=== PATIENT | female | born 1970 | race Caucasian/White ===

== ENCOUNTER 2023-03-23 12:50 | Outpatient (CLI) | payer OTHER, SELFPAY ==
--- NOTE | 2023-03-23 13:00 | MM_ITS ---
WS: [id number] DIAGNOSTIC BILATERAL DIGITAL BREAST TOMOSYNTHESIS MAMMOGRAPHY WITH CAD RIGHT breast ultrasound, limited HISTORY: LUMP IN RT BREAST COMPARISON: None available. TECHNIQUE: Bilateral craniocaudad, mediolateral oblique, and mediolateral views are submitted with to mosynthesis and SM. Spot compression LEFT CC and MLO. Computer aided detection utilized. Breast composition: The breasts are heterogeneously dense, which may obscure small masses. Spiculated mass in a middle depth RIGHT breast near 12-1 o'clock. Mass measures 1.5 x 2.3 cm. There is a addit ional soft tissue thickening extending towards the nipple. LEFT breast is negative. RIGHT breast ultrasound, limited. Ultrasound 1:00, 2 cm from the nipple demonstrates a hypoechoic mass with angulated margins and shado wing. There is tumor extension along the proximal ducts from this mass. Mass may extend into the pect oralis muscle. Mass measures 1.6 x 2.4 x 1.9 cm. There is no definite duct extension towards the nipp le as questioned on the mammogram. No lymphadenopathy in the axilla. MM/[place] [id number] IMPRESSION: BI-RADS: 5-Highly Suggestive of Malignancy FOLLOW UP: Biopsy Recommended Ultrasound-guided biopsy recommended RIGHT breast mass at 1:00. Notified Samy Marcus MD at 03/23/2023 2:15 PM.
== END 2023-03-23 12:51 | disposition home or self-care (01) ==
LOC: RAD 12:56
PROVIDERS: PCP Family Medicine; Visit Provider Family Medicine
DX: N63.12 Unspecified lump in the right breast, upper inner quadrant (principal)
CPT/HCPCS: 76642; 77062; G0279

== ENCOUNTER 2023-06-08 10:22 | Oncology outpatient (recurring) (ONCR) | payer OTHER, SELFPAY ==
[2023-06-08 11:29] LABS: Basophils # 0.1 10^3/uL (0.0-0.1); Basophils % 1.3 %; Eosinophils # 0.3 10^3/uL (0.0-0.8); Eosinophils % 6.9 %; Hematocrit 30.3 % (36-47); Lymphocytes # 1.1 10^3/uL (0.8-4.8); Lymphocytes % 24.2 %; Mean Corpuscular HGB Conc 32.3 g/dL (30-55); Mean Corpuscular Hemoglobin 30.8 pg (27-33); Mean Corpuscular Volume 95.3 fl (85-98); Mean Platelet Volume 8.4 fL (7.4-10.4); Monocytes # 0.6 10^3/uL (0.2-0.9); Monocytes % 13.6 %; Neutrophils % 53.8 %; Nucleated Red Blood Cells % 0 %; Platelet Count 506 10^3/cmm (157-399); Red Blood Count 3.18 10^6/uL (3.85-5.65); Red Cell Distribution Width 12.5 % (12.1-15.1); White Blood Count 4.47 10^3/uL (3.29-11.43)
[2023-06-08 12:00] LABS: Albumin Level 4.4 g/dL (3.5-5.2); Alkaline Phosphatase 74 U/L (35-105); Anion Gap 14.4 (5-19); Aspartate Amino Transferase 13 U/L (0-32); Blood Urea Nitrogen 9 mg/dL (6-20); Calcium 9.4 mg/dL (8.5-10.5); Carbon Dioxide 28 mmol/L (22-29); Chloride 101 mmol/L (98-107); Estradiol 150.5 pg/mL; Follicle Stimulating Hormone 11.7 mIU/mL; Globulin 2.8 g/dL (1.3-4.6); Glomerular Filtration Rate 74.7 mL/min (90-130); Glucose 102 mg/dL (65-115); Iron 51 ug/dL (37-145); Luteinizing Hormone 9.4 mIU/mL (0.5-41.7); Osmolality Calculated 287 mOsm/kg (285-295); Percent Saturation 18.6 % (20-50); Potassium 4.4 mmol/L (3.5-5.1); Sodium 139 mmol/L (136-145); Thyroid Stimulating Hormone 2.67 uIU/mL (0.27-4.20); Total Bilirubin 0.4 mg/dL (0.15-1.2); Total Iron Binding Capacity 274 mcg/dl; Total Protein 7.2 g/dL (6.6-8.7); Unsaturated Iron Binding 223 ug/dL (112-347)
[2023-06-08 12:10] LABS: Alanine Aminotransferase 13 U/L (0-33)
== END 2023-06-10 23:59 | disposition home or self-care (01) ==
PROVIDERS: PCP Family Medicine; Visit Provider Internal Medicine Medical Oncology
DX: C50.919 Malignant neoplasm of unspecified site of unspecified female breast (principal); R53.83 Other fatigue; E28.319 Asymptomatic premature menopause
CPT/HCPCS: 36415; 80053; 82670; 83001; 83002; 83540; 83550; 84443; 85025

== ENCOUNTER 2023-06-11 06:00 | Outpatient (RCR) | payer OTHER, SELFPAY | END 2023-07-10 23:59 | disposition home or self-care (01) | LOC: SPT 06:00 | PROVIDERS: Visit Provider Physician Assistant Medical | DX: C50.011 Malignant neoplasm of nipple and areola, right female breast (principal); I89.0 Lymphedema, not elsewhere classified | CPT/HCPCS: 97140; 97161 ==

== ENCOUNTER 2023-07-11 06:00 | Outpatient (RCR) | payer OTHER, SELFPAY | END 2023-08-10 23:59 | disposition home or self-care (01) | LOC: SPT 06:00 | PROVIDERS: Visit Provider Physician Assistant Medical | DX: C50.011 Malignant neoplasm of nipple and areola, right female breast (principal); I89.0 Lymphedema, not elsewhere classified | CPT/HCPCS: 97140 ==

== ENCOUNTER → 2023-09-20 10:09 | Day surgery (SDC) | payer OTHER, SELFPAY ==
--- NOTE | 2023-09-20 09:04 | XR_ITS ---
WS: [id number] Exam: XR chest 1V portable [id number] Date/Time of Exam: 09/20/2023 9:04 AM Reason For Exam: Post PICC insertion No priors. The lungs are clear and fully expanded. Normal cardiomediastinal silhouette. A left-sided PICC line e nds in the lower one third of the SVC in good position. Surgical clips in the RIGHT axilla. There may be an implanted device in the RIGHT breast. Bony structures are intact. IMPRESSION: 1. No acute cardiopulmonary finding. 2. Left-sided PICC line ending in the lower one third of the SVC in satisfactory position.
[2023-09-20 10:20] VITALS: BP 166/93; PULSE 64; RESP 18; TEMP 36.3; O2SAT 99
--- NOTE | 2023-09-20 11:00 | PC.NURSE ---
Referred to vascular access nurse from [facility] for PICC placement for chemotherapy. Pt with history right mastectomy with lymph node removal. Risks and benefits discussed and informed consent obtained from patient. Left arm assessed with left brachial vein noted at 3.8 mm, straight, and apparent best choice for placement. Using sterile technique and MST, left brachial vein accessed x 1 stick. Mid-arm circumference measured 10 cm from left AC 24 cm. Dual lumen cath inserted with trimmed cath 42 cm and 1 cm external length noted. CXR shows tip in distal SVC, in good position for use per radiologist. Line secured with stat-lock. Insertion site covered with Biopatch and TSM. Pt to have dressing changed tomorrow at [facility].
[2023-09-20 12:54] LABS: Basophils % 0.8 %; Eosinophils # 0.1 10^3/uL (0.0-0.8); Eosinophils % 2.1 %; Hematocrit 38.7 % (36-47); Lymphocytes # 1.5 10^3/uL (0.8-4.8); Lymphocytes % 31.4 %; Mean Corpuscular HGB Conc 33.3 g/dL (30-55); Mean Corpuscular Hemoglobin 28.4 pg (27-33); Mean Corpuscular Volume 85.2 fl (85-98); Mean Platelet Volume 9.3 fL (7.4-10.4); Monocytes # 0.5 10^3/uL (0.2-0.9); Monocytes % 10.3 %; Neutrophils # 2.58 10^3/uL (1.8-7.7); Neutrophils % 54.6 %; Nucleated Red Blood Cells % 0 %; Platelet Count 371 10^3/cmm (157-399); Red Blood Count 4.54 10^6/uL (3.85-5.65); Red Cell Distribution Width 12.4 % (12.1-15.1); White Blood Count 4.74 10^3/uL (3.29-11.43)
[2023-09-20 12:57] LABS: Alanine Aminotransferase 15 U/L (0-33); Albumin Level 4.5 g/dL (3.5-5.2); Alkaline Phosphatase 71 U/L (35-105); Anion Gap 12.2 (5-19); Aspartate Amino Transferase 17 U/L (0-32); Blood Urea Nitrogen 12 mg/dL (6-20); Calcium 9.7 mg/dL (8.5-10.5); Carbon Dioxide 29 mmol/L (22-29); Chloride 101 mmol/L (98-107); Globulin 2.6 g/dL (1.3-4.6); Glomerular Filtration Rate 74.7 mL/min (90-130); Glucose 106 mg/dL (65-115); Osmolality Calculated 286 mOsm/kg (285-295); Potassium 4.2 mmol/L (3.5-5.1); Sodium 138 mmol/L (136-145); Total Bilirubin 0.5 mg/dL (0.15-1.2); Total Protein 7.1 g/dL (6.6-8.7)
== END ==
PROVIDERS: PCP Nurse Practitioner Family; Visit Provider Internal Medicine Medical Oncology
DX: Z45.2 Encounter for adjustment and management of vascular access device (principal)
CPT/HCPCS: 36573; 36592; 71045; 80053; 85025

== ENCOUNTER 2023-09-28 13:48 | Emergency (ER) | payer OTHER, SELFPAY ==
[2023-09-28 14:14] VITALS: BP 121/76; PULSE 96; RESP 21; TEMP 37.2; O2SAT 100
--- NOTE | 2023-09-28 14:24 | ED_ITS ---
HPI - Recheck/Abnormal Lab/Rx 2 General: Chief Complaint: Recheck/Abnormal Lab/Rx Stated Complaint: sent by Dr Melo/ abn labs Time Seen by Provider: 09/28/23 14:08 Source: patient Mode of arrival: ambulatory Limitations: no limitations History of Present Illness: 52-year-old female with a history of gasper ast cancer to started chemotherapy 1 week ago patient sent here by her oncologist had gotten labs showed a hemoglobin of 5.9. States she had some slight blood in her stools but no large amount states has been feeling fine has had no weakness no feeling lightheaded. She denies any pain anywhere. Review of Systems 2 Const: Denies: fever(s), chills, body aches or change in appetite Eyes: Denies: blurry vision or eye discomfort ENMT: Denies: throat pain or dental pain Card: Denies: chest pain Resp: Denies: dyspnea GI: Denies: abdominal pain, nausea, vomiting or diarrhea : Denies: dysuria Musc: Denies: neck pain or back pain Skin/Breast: Denies: rash Neuro: Denies: headache(s) PFSH ED 2 PFSH: Medical History History of migraine Breast cancer Hypertension Depression High cholesterol Surgical History History of removal of cyst Removal of 2 scalp cysts History of lumpectomy of right breast (04/27/23) History of right mastectomy (05/20/23) History of right mast/axillary dissection History of abdominal hysterectomy (2011) Family History Grandmother Cancer Diabetes Lung disease Stroke Mother CAD (coronary artery disease) Father Hyperlipidemia Hypertension Lung disease Prostate cancer Denies family history of Clotting disorder Dementia Psychiatric illness Chronic kidney disease (CKD) Suicide Family history of premature coronary artery disease Social History Smoking and tobacco/nicotine status: never used tobacco/nicotine Alcohol intake: current Alcohol intake frequency: few times a month Alcohol type: wine Physical Exam 2 Const: COMMON NORMALS: no acute distress, patient oriented x3 and healthy appearing HENMT: COMMON NORMALS: normocephalic and atraumatic HEAD & SCALP: n ormocephalic and atraumatic Eye: COMMON NORMALS: conjunctivae normal CONJUNCTIVA: Yes conjunctivae normal Neck/C-Spine: COMMON NORMALS: full ROM and supple Chest: COMMONS NORMALS: normal inspection of the chest Resp: COMMON NORMALS: normal respiratory effort, No retractions, No use of accessory muscles and clear to auscultation bilaterally AUSCULTATION: clear to auscultation bilaterally Cardio: COMMON NORMALS: regular rate, regular rhythm and No murmurs present (Cardio) RATE: regular rate RHYTHM: regular rhythm GI: COMMON NORMALS: Normal to inspection, nondistended, normoactive bowel sounds present, Soft to palpation, non-tender and no masses PALPATION: Yes Soft to palpation Extremity: COMMON NORMALS: normal to inspection and full ROM Neuro: COMMON NORMALS: patient oriented x3, moves all extremities and no focal motor deficits Psych: COMMON NORMALS: mental status grossly normal, Normal thought process present and cooperative THOUGHT PROCESS: Normal thought process present Skin: COMMON NORMALS: no rashes or lesions noted and no wounds GENERAL SKIN EXAM: no rashes or lesions noted Course 2 Vital Signs: Vital signs: Vital Signs Temperature 99.0 F 09/28/23 14:14 Pulse Rate 96 09/28/23 14:14 Respiratory Rate 21 H 09/28/23 14:14 Blood Pressure 121/76 09/28/23 14:14 Pulse Oximetry 100 09/28/23 14:14 Oxygen Delivery Me thod Room Air 09/28/23 14:14 MDM - Recheck/Abnormal Lab/Rx Medical Decision Making Patient presents here concerned of anemia she had outpatient drawl was 5.9 likely lab hemoglobin here is 12 she is well-appearing here I did speak to her oncologist she is stable for discharge. Medical Records I reviewed the patient's medical records. Lab Data I reviewed the patient's lab results. 09/28/23 14:08 Laboratory Results Hgb 12.00 g/dL (11.27-16.99) D 09/28/23 14:08 Hct 34.9 % (36-47) L D 09/28/23 14:08 Iron 38 ug/dL (37-145) 09/28/23 14:08 TIBC 240 mcg/dl 09/28/23 14:08 % Saturation 15.8 % (20-50) L 09/28/23 14:08 Unsat Iron Binding 202 ug/dL (112-347) 09/28/23 14:08 No radiology studies performed this visit Discharge Plan Discharge Patient Disposition: Home Clinical Impression: Breast cancer of upper-inner quadrant of right female breast Condition: Stable Prescriptions: No Action atorvastatin 20 mg tablet 20 mg PO DAILY bupropion HCl 150 mg tablet extended release 24 hr 150 mg PO QAM lisinopril 40 mg tablet 20 mg PO DAILY Rx Instructions: cut in half propranolol 40 mg tablet 20 mg PO QID lorazepam 1 mg tablet 0.5 - 1 mg PO Q6H PRN (Reason: Severe Nausea) Qty: 30 3RF ondansetron HCl 4 mg tablet 4 mg PO QID PRN (Reason: Nausea/vomiting) Qty: 30 3RF Compazine 10 mg tablet 10 mg PO Q4H PRN (Reason: Mild Nausea) Qty: 30 3RF lorazepam 1 mg tablet 0.5 - 1 mg buccal Q6H PRN (Reason: severe nausea) Qty: 30 3RF ondansetron 4 mg tablet,disintegrating 4 mg PO Q6H PRN (Reason: nausea and vomiting) Qty: 30 3RF cyclophosphamide 100 mg recon soln IV .3 weeks (DME) Cranial prothesis 0 .Route .MEDSUPPLY Qty: 1 0RF Rx Instructions: As directed ondansetron HCl 4 mg Tablet 4 mg PO QID PRN (Reason: Nausea/vomiting) Qty: 30 3RF olanzapine 5 mg tablet 5 mg PO QPM Qty: 30 3RF Rx Instructions: Take for 5 days post chemo. Compazine 10 mg tablet 10 mg PO Q4H PRN (Reason: Mild Nausea) Qty: 30 3RF dexamethasone 4 mg tablet 8 mg PO DIRECTED Qty: 60 3RF Rx Instructions: Take 8 mg twice daily the day before and the day after Taxotere lorazepam 1 mg tablet 0.5 - 1 mg PO Q6H PRN (Reason: Severe Nausea) Qty: 30 3RF dexamethasone 4 mg tablet 8 mg PO DIRECTED Qty: 60 3RF Rx Instructions: Take 8 mg twice daily the day before and the day after Taxotere Discharge Orders: Discharge ED (Routine); Ordered 09/28/23 Ordered By: Nelli Bruno Referrals: Ifrah,Mara, AGENCY SERVICE REPRESENTATIVE [Primary Care Provider] - Discharge Diet: Advance as tolerated Discharge Activity: Resume usual activity Coding Level of Care Code ED Front Office Coordinator for Mohan Hermosillo
[2023-09-28 14:29] LABS: Hematocrit 34.9 % (36-47)
[2023-09-28 15:00] LABS: Iron 38 ug/dL (37-145); Percent Saturation 15.8 % (20-50); Total Iron Binding Capacity 240 mcg/dl; Unsaturated Iron Binding 202 ug/dL (112-347)
[2023-09-28 15:31] VITALS: BP 121/76; PULSE 96; RESP 21; TEMP 37.2; O2SAT 100
== END 2023-09-28 15:32 | disposition home or self-care (01) ==
PROVIDERS: Emergency Provider Emergency Medicine; PCP Nurse Practitioner Family
DX: C50.211 Malignant neoplasm of upper-inner quadrant of right female breast (principal); I10 Essential (primary) hypertension
CPT/HCPCS: 83540; 83550; 85014; 85018; 86850; 86900; 99283

== ENCOUNTER 2023-10-06 13:45 | Oncology outpatient (recurring) (ONCR) | payer OTHER, SELFPAY ==
[2023-09-21 09:02] LABS: Basophils % 0.2 %; Hematocrit 38.5 % (36-47); Lymphocytes # 1.1 10^3/uL (0.8-4.8); Lymphocytes % 10.6 %; Mean Corpuscular HGB Conc 33.8 g/dL (30-55); Mean Corpuscular Hemoglobin 28.4 pg (27-33); Mean Corpuscular Volume 84.2 fl (85-98); Mean Platelet Volume 8.7 fL (7.4-10.4); Monocytes # 0.3 10^3/uL (0.2-0.9); Monocytes % 2.7 %; Neutrophils # 8.91 10^3/uL (1.8-7.7); Neutrophils % 85.5 %; Nucleated Red Blood Cells % 0 %; Platelet Count 441 10^3/cmm (157-399); Red Blood Count 4.57 10^6/uL (3.85-5.65); Red Cell Distribution Width 12.5 % (12.1-15.1); White Blood Count 10.41 10^3/uL (3.29-11.43)
[2023-09-21 09:25] LABS: Alanine Aminotransferase 16 U/L (0-33); Albumin Level 4.8 g/dL (3.5-5.2); Alkaline Phosphatase 71 U/L (35-105); Anion Gap 18.2 (5-19); Aspartate Amino Transferase 16 U/L (0-32); Blood Urea Nitrogen 13 mg/dL (6-20); Carbon Dioxide 25 mmol/L (22-29); Chloride 100 mmol/L (98-107); Globulin 2.6 g/dL (1.3-4.6); Glomerular Filtration Rate 74.7 mL/min (90-130); Glucose 171 mg/dL (65-115); Osmolality Calculated 292 mOsm/kg (285-295); Potassium 4.2 mmol/L (3.5-5.1); Sodium 139 mmol/L (136-145); Total Bilirubin 0.5 mg/dL (0.15-1.2); Total Protein 7.4 g/dL (6.6-8.7)
[2023-09-21] MEDS: sodium chloride 0.9% 250 ML 75 ML IV (11:48)
[2023-09-21] MEDS: palonosetron 0.25 mg/5 mL SDV IVP (11:50)
[2023-09-21] MEDS: famotidine 20 mg/2 mL INJ IVP (11:54)
[2023-09-21] MEDS: diphenhydrAMINE 50 mg/mL SDV 1mL 25 MG IVP (11:57)
[2023-09-21] MEDS: OLANZapine 5 mg TABLET PO (12:00)
[2023-09-21] MEDS: fosaprepitant 150 MG in sodium chloride 0.9% 150 ML 300 MG IV (12:02)
[2023-09-21 12:38] VITALS: BP 152/89; PULSE 65; RESP 16; TEMP 36.8; O2SAT 98
[2023-09-21] MEDS: pegfilgrastim 6 mg/0.6 mL Kit (onpro) SUBCUT (16:00)
[2023-09-21 16:14] VITALS: BP 149/84; PULSE 62; TEMP 36.7; O2SAT 99
--- NOTE | 2023-09-23 12:27 | ECG_ITS ---
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 Measurements Intervals [place] Rate: 60 P: 57 MT: 147 QRS: 67 QRSD: 82 T: 57 QT: 422 QTc: 422 Interpretive Statements SINUS RHYTHM WITH SINUS ARRHYTHMIA POSSIBLE RIGHT VENTRICULAR CONDUCTION DELAY [RSR (QR) IN V1/V2] No previous ECG available for comparison Electronically Signed On 09-23-2023 15:53:22 MULTIFOCAL LENS ASSEMBLER by Cherelle Navarro M.D. [id number]
[2023-09-28 10:58] VITALS: PULSE 57; RESP 16; TEMP 36; O2SAT 98
[2023-09-28 12:04] LABS: Alanine Aminotransferase 17 U/L (0-33); Albumin Level 4.1 g/dL (3.5-5.2); Alkaline Phosphatase 75 U/L (35-105); Anion Gap 14.3 (5-19); Aspartate Amino Transferase 20 U/L (0-32); Blood Urea Nitrogen 11 mg/dL (6-20); Carbon Dioxide 27 mmol/L (22-29); Chloride 96 mmol/L (98-107); Globulin 2.8 g/dL (1.3-4.6); Glomerular Filtration Rate 65.2 mL/min (90-130); Glucose 109 mg/dL (65-115); Osmolality Calculated 276 mOsm/kg (285-295); Potassium 4.3 mmol/L (3.5-5.1); Sodium 133 mmol/L (136-145); Total Bilirubin 0.3 mg/dL (0.15-1.2); Total Protein 6.9 g/dL (6.6-8.7)
[2023-10-06 13:38] VITALS: PULSE 85; RESP 16; TEMP 36.5; O2SAT 99
[2023-10-06 14:12] LABS: Basophils # 0.2 10^3/uL (0.0-0.1); Basophils % 1.1 %; Eosinophils % 0.1 %; Hematocrit 32.1 % (36-47); Lymphocytes # 1.9 10^3/uL (0.8-4.8); Mean Corpuscular HGB Conc 33.3 g/dL (30-55); Mean Corpuscular Hemoglobin 28.1 pg (27-33); Mean Corpuscular Volume 84.3 fl (85-98); Monocytes # 1.2 10^3/uL (0.2-0.9); Monocytes % 6.5 %; Neutrophils # 13.44 10^3/uL (1.8-7.7); Neutrophils % 76.5 %; Nucleated Red Blood Cells % 0 %; Platelet Count 381 10^3/cmm (157-399); Red Blood Count 3.81 10^6/uL (3.85-5.65); Red Cell Distribution Width 12.4 % (12.1-15.1); White Blood Count 17.58 10^3/uL (3.29-11.43)
[2023-10-06 14:35] LABS: Alanine Aminotransferase 41 U/L (0-33); Alkaline Phosphatase 108 U/L (35-105); Aspartate Amino Transferase 25 U/L (0-32); Blood Urea Nitrogen 7 mg/dL (6-20); Calcium 9.4 mg/dL (8.5-10.5); Carbon Dioxide 24 mmol/L (22-29); Chloride 99 mmol/L (98-107); Glomerular Filtration Rate 74.7 mL/min (90-130); Glucose 115 mg/dL (65-115); Osmolality Calculated 283 mOsm/kg (285-295); Sodium 137 mmol/L (136-145); Total Bilirubin 0.3 mg/dL (0.15-1.2)
[2023-10-06 14:38] LABS: Anion Gap 18.3 (5-19); Potassium 4.3 mmol/L (3.5-5.1)
== END 2023-10-10 23:59 | disposition home or self-care (01) ==
PROVIDERS: Nurse Practitioner Family; PCP Nurse Practitioner Family; Visit Provider Internal Medicine Medical Oncology
DX: C50.211 Malignant neoplasm of upper-inner quadrant of right female breast (principal); Z17.0 Estrogen receptor positive status [ER+]; Z79.899 Other long term (current) drug therapy
CPT/HCPCS: 80053; 83540; 83550; 85014; 85018; 85025; 86850; 86900; 93005; 96367; 96375; 96377; 96413; 96417; 99283; J1100; J1200; J1453; J1642; J2469; J2506; J3490; J7040; J7050; J9070; J9171

== ENCOUNTER 2023-10-17 17:40 | Inpatient (IN) | payer OTHER, SELFPAY ==
--- NOTE | 2023-10-17 17:49 | ECG_ITS ---
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 Measurements Intervals [place] Rate: 115 P: 59 [place]: 129 QRS: 81 QRSD: 76 T: 52 QT: 311 QTc: 431 Interpretive Statements SINUS TACHYCARDIA POSSIBLE RIGHT VENTRICULAR CONDUCTION DELAY [RSR (QR) IN V1/V2] Compared to ECG 09/23/2023 12:27:04 Sinus rhythm no longer present Sinus arrhythmia no longer present Electronically Signed On 10-18-2023 10:51:44 OIL LEASE OPERATOR by Nelson Myles M.D. [email or web address] [id number]
[2023-10-17 17:50] VITALS: BP 124/87; PULSE 116; RESP 16; TEMP 37.1; O2SAT 99; BMI 20.5
--- NOTE | 2023-10-17 18:10 | XRR_ITS ---
PROCEDURE INFORMATION: Exam: XR Chest Exam date and time: 10/17/2023 6:21 PM Age: 52 years old Clinical indication: Prior surgery; Surgery date: 6+ months; Surgery type: Tissue ticket sorter post mastectomy; Patient HX: C/O palpitations. History of breast cancer. TECHNIQUE: Imaging protocol: Radiologic exam of the chest. Views: 1 view. COMPARISON: CR XR chest 1V portable [id number] 09/20/2023 12:32 PM FINDINGS: Lungs: No focal consolidation or evidence of airspace disease. Pleural spaces: No evidence of pneumothorax or pleural effusion Heart/Mediastinum: Left sided central venous catheter with tip in the region of the mid SVC. Cardiomediastinal silhouette is within normal limits. Bones/joints: No evidence of acute osseous abnormality. Clips in the right axilla. XR/XR chest 1V portable [id number] IMPRESSION: 1. No acute cardiopulmonary abnormality. 2. Left sided central venous catheter with tip in the region of the mid SVC.
[2023-10-17] MEDS: sodium chloride 0.9% 1,000 ML 999 ML IV ×2 (18:40→21:27)
[2023-10-17] MEDS: metoprolol tartrate 1 mg/1 mL SDV 5 mL 2.5 MG IVP (18:44)
[2023-10-17 18:46] LABS: Hematocrit 27.2 % (36-47); Lymphocytes # 0.4 10^3/uL (0.8-4.8); Lymphocytes % 42.4 %; Mean Corpuscular HGB Conc 33.8 g/dL (30-55); Mean Corpuscular Hemoglobin 28.8 pg (27-33); Mean Platelet Volume 9.2 fL (7.4-10.4); Monocytes # 0.1 10^3/uL (0.2-0.9); Monocytes % 12.1 %; Neutrophils % 38.5 %; Nucleated Red Blood Cells % 0 %; Platelet Count 193 10^3/cmm (157-399); Red Cell Distribution Width 12.9 % (12.1-15.1); White Blood Count 0.99 10^3/uL (3.29-11.43)
[2023-10-17 18:58] LABS: Slide Review Slide Review Perform
[2023-10-17 18:59] LABS: Neutrophils # 0.38 10^3/uL (1.8-7.7)
[2023-10-17 19:01] LABS: Chloride 100 mmol/L (98-107); Potassium 3.8 mmol/L (3.5-5.1); Sodium 136 mmol/L (136-145)
[2023-10-17 19:03] LABS: Troponin(5th) Baseline < 6 ng/L (0-10)
[2023-10-17 19:11] LABS: NT Pro B Type Natriuretic Pept 43 pg/mL (0-125); Thyroid Stimulating Hormone 2.29 uIU/mL (0.27-4.20)
[2023-10-17 19:24] VITALS: BP 110/88; PULSE 101; O2SAT 96
[2023-10-17 19:45] LABS: Alanine Aminotransferase 13 U/L (0-33); Albumin Level 3.8 g/dL (3.5-5.2); Alkaline Phosphatase 77 U/L (35-105); Anion Gap 17.8 (5-19); Aspartate Amino Transferase 13 U/L (0-32); Blood Urea Nitrogen 12 mg/dL (6-20); Calcium 8.8 mg/dL (8.5-10.5); Carbon Dioxide 22 mmol/L (22-29); Globulin 2.9 g/dL (1.3-4.6); Glomerular Filtration Rate 104.2 mL/min (90-130); Glucose 102 mg/dL (65-115); Total Bilirubin 0.6 mg/dL (0.15-1.2); Total Protein 6.7 g/dL (6.6-8.7)
--- NOTE | 2023-10-17 19:46 | ED_ITS ---
HPI - Arrhythmia/Palpitations 2 General: Chief Complaint: Arrhythmia/Palpitations Stated Complaint: Heart fluttering Time Seen by Provider: 10/17/23 18:05 History of Present Illness: 52-year-old female with a history of gasper ast cancer. She is on active chemotherapy. Last dose was Wednesday. She believes she got Neulasta on Wednesday evening, but there may or may not have been a slight malfunction with her infusion at that point. She also got diagnosed on Wednesday with influenza, and has been on Tamiflu. She does not feel feverish anymore. She presents here because she is having palpitations. Her heart rate, which is usually in the 60s, as well over 100, and she is skipping beats she says. When she does it seems to make her cough. Associated symptoms: Reports nausea; Deny vomiting Review of Systems 2 Const: Reports: body aches; Denies: fever(s) or chills Eyes: Denies: change in vision ENMT: Denies: throat pain Card: Reports: palpitations and irregular heart rhythm; Denies: chest pain Resp: Reports: non-productive cough; Denies: dyspnea GI: Reports: nausea; Denies: vomiting Neuro: Denies: headache(s) PFSH ED 2 PFSH: Medical History History of migraine Breast cancer Hypertension Depression High cholesterol Surgical History History of removal of cyst Removal of 2 scalp cysts History of lumpectomy of right breast (04/27/23) History of right mastectomy (05/20/23) History of right mast/axillary dissection History of abdominal hysterectomy (2011) Family History Grandmother Cancer Diabetes Lung disease Stroke Mother CAD (coronary artery disease) Father Hyperlipidemia Hypertension Lung disease Prostate cancer Denies family history of Clotting disorder Dementia Psychiatric illness Chronic kidney disease (CKD) Suicide Family history of premature coronary artery disease Social History Smoking and tobacco/nicotine status: never used tobacco/nicotine Alcohol intake: current Alcohol intake frequency: few times a month Alcohol type: wine Physical Exam 2 Const: GENERAL APPEARANCE: cooperative; not frail appearing HENMT: COMMON NORMALS: normocephalic, atraumatic and Normal external nose present HEAD & SCALP: normocephalic and atraumatic FACE & SINUS: normal facial exam and face symmetric NOSE: Normal external nose present Eye: COMMON NORMALS: Equal, round and reactive pupils present and EOMs intact bilaterally PUPIL: Yes Equal, round and reactive pupils present Neck/C-Spine: GENERAL: Yes trachea midline Chest: CHEST: Yes Symmetrical chest wall rise Resp: COMMON NORMALS: normal respiratory effort, No retractions, No use of accessory muscles and clear to auscultation bilaterally AUSCULTATION: clear to auscultation bilaterally Cardio: COMMON NORMALS: regular rhythm RATE: tachycardic RHYTHM: regular rhythm GI: COMMON NORMALS: Normal to inspection, nondistended, normoactive bowel sounds present and Soft to palpation PALPATION: Yes Soft to palpation Extremity: COMMON NORMALS: no pedal edema Neuro: LISET COMA SCALE: document GCS findings [place] coma scale eye opening: Spontaneous Liset coma scale verbal response: Orientated Liset coma scale motor response: Obey commands Liset coma scale total score: 15 S ENSORY EXAM: Yes extremities (intact) Psych: COMMON NORMALS: speech normal SPEECH: Yes normal speech Skin: COMMON NORMALS: no rashes or lesions noted GENERAL SKIN EXAM: no rashes or lesions noted Course 2 Vital Signs: Vital signs: Vital Signs Temperature 98.8 F 10/17/23 17:50 Pulse Rate 97 10/17/23 20:35 Respiratory Rate 16 10/17/23 17:50 Blood Pressure 135/106 10/17/23 20:35 Pulse Oximetry 100 10/17/23 20:35 Oxygen Delivery Me thod Room Air 10/17/23 20:35 MDM - Arrhythmia/Palpitations Medical Decision Making Tachycardic chemotherapy patient. Heart rate was in the 120s on arrival. After fluid infusion, and IV metoprolol, heart rate is below 100. Blood pressure has remained stable. Her white blood cell count is 0.99 with an absolute neutrophil count of 380. Hemoglobin is 9.2. Chest x-ray is negative. Urinalysis is negative. Electrolytes are normal. Concerning for tachycardia with neutropenia, that she could have an early sepsis picture. Fluid bolus was stopped early, as she began to cough significantly after getting around 1.5 L. She will be admitted to isolation, given IV antibiotics after blood cultures, etc. Lab Data 10/17/23 18:37 10/17/23 18:37 Radiology Impressions Chest X-Ray 10/17/23 18:10 IMPRESSION: 1. No acute cardiopulmonary abnormality. 2. Left sided central venous catheter with tip in the region of the mid SVC. Laboratory Results WBC 0.99 10^3/uL (3.29-11.43) L* 10/17/23 18:37 RBC 3.20 10^6/uL (3.85-5.65) L 10/17/23 18:37 Hgb 9.20 g/dL (11.27-16.99) L 10/17/23 18:37 Hct 27.2 % (36-47) L 10/17/23 18:37 MCV 85.0 fl (85-98) 10/17/23 18:37 MCH 28.8 pg (27-33) 10/17/23 18:37 MCHC 33.8 g/dL (30-55) 10/17/23 18:37 RDW 12.9 % (12.1-15.1) 10/17/23 18:37 Plt Count 193 10^3/cmm (157-399) 10/17/23 18:37 MPV 9.2 fL (7.4-10.4) 10/17/23 18:37 Neut % (Auto) 38.5 % 10/17/23 18:37 Lymph % (Auto) 42.4 % 10/17/23 18:37 Morris % (Auto) 12.1 % 10/17/23 18:37 Eos % (Auto) 2.0 % 10/17/23 18:37 Baso % (Auto) 4.0 % 10/17/23 18:37 Neut # (Auto) 0.38 10^3/uL (1.8-7.7) L* 10/17/23 18:37 Lymph # (Auto) 0.4 10^3/uL (0.8-4.8) L 10/17/23 18:37 Morris # (Auto) 0.1 10^3/uL (0.2-0.9) L 10/17/23 18:37 Eos # (Auto) 0.0 10^3/uL (0.0-0.8) 10/17/23 18:37 Baso # (Auto) 0.0 10^3/uL (0.0-0.1) 10/17/23 18:37 Nucleated RBC % (auto) 0 % 10/17/23 18:37 Nucleated RBCs # 0.0 /100WBC 10/17/23 18:37 Sodium 136 mmol/L (136-145) 10/17/23 18:37 Potassium 3.8 mmol/L (3.5-5.1) 10/17/23 18:37 Chloride 100 mmol/L (98-107) 10/17/23 18:37 Carbon Dioxide 22 mmol/L (22-29) 10/17/23 18:37 Anion Gap 17.8 (5-19) 10/17/23 18:37 BUN 12 mg/dL (6-20) 10/17/23 18:37 Creatinine 0.6 mg/dL (0.5-0.9) 10/17/23 18:37 GFR Calculation 104.2 mL/min (90-130) 10/17/23 18:37 Glucose 102 mg/dL (65-115) 10/17/23 18:37 Calculated Osmolality 280 mOsm/kg (285-295) L 10/17/23 18:37 Calcium 8.8 mg/dL (8.5-10.5) 10/17/23 18:37 Total Bilirubin 0.6 mg/dL (0.15-1.2) 10/17/23 18:37 AST 13 U/L (0-32) 10/17/23 18:37 ALT 13 U/L (0-33) 10/17/23 18:37 Alkaline Phosphatase 77 U/L (35-105) 10/17/23 18:37 Troponin T Baseline < 6 ng/L (0-10) 10/17/23 18:37 Troponin T 120 Minute 6.00 ng/L (0-10) 10/17/23 20:23 Delta Troponin T 0.69114 ABS# (0-10) 10/17/23 20:23 NT-Pro-B Natriuret Pep 43 pg/mL (0-125) 10/17/23 18:37 Total Protein 6.7 g/dL (6.6-8.7) 10/17/23 18:37 Albumin 3.8 g/dL (3.5-5.2) 10/17/23 18:37 Globulin 2.9 g/dL (1.3-4.6) 10/17/23 18:37 TSH 2.29 uIU/mL (0.27-4.20) 10/17/23 18:37 Urine Color Yellow (Yellow) 10/17/23 19:52 Urine Appearance Clear (CLEAR) 10/17/23 19:52 Urine pH 5 (5-7) 10/17/23 19:52 Ur Specific [place] 1.005 (1.005-1.030) 10/17/23 19:52 Urine Protein Neg (Negative) 10/17/23 19:52 Urine Glucose (UA) Norm (Normal) 10/17/23 19:52 Urine Ketones Negative (Negative) 10/17/23 19:52 Urine Blood Neg (Negative) 10/17/23 19:52 Urine Nitrate Negative (Negative) 10/17/23 19:52 Urine Bilirubin Neg (Negative) 10/17/23 19:52 Urine Urobilinogen Norm mg/dL (Negative) 10/17/23 19:52 Ur Leukocyte Esterase Negative (Negative) 10/17/23 19:52 All radiology interpretation(s) finalized by discharge Discharge Plan Discharge Patient Disposition: Admitted As Inpatient Admit Provider: Humaira García Clinical Impression: Neutropenia, Tachycardia Condition: Fair Coding Level of Care Code ED Migration Specialist for Mohan Hermosillo
[2023-10-17 19:48] LABS: Osmolality Calculated 280 mOsm/kg (285-295)
[2023-10-17 20:09] LABS: Add Urine Microscopic? NO; Charge for UA Resulting for Rev
--- NOTE | 2023-10-17 20:12 | ECG_ITS ---
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 Measurements Intervals [place] Rate: 94 P: 49 MA: 156 QRS: 72 QRSD: 81 T: 43 QT: 360 QTc: 451 Interpretive Statements SINUS RHYTHM POSSIBLE RIGHT VENTRICULAR CONDUCTION DELAY [RSR (QR) IN V1/V2] Compared to ECG 10/17/2023 17:49:05 Sinus tachycardia no longer present Electronically Signed On 10-18-2023 10:53:42 MANAGER MONITORING by Nelson Myles M.D. [email or web address] [email or web address] va [id number]
[2023-10-17 20:18] LABS: Bilirubin Urine Neg (Negative); Blood Urine Neg (Negative); Glucose Urine UA Norm (Normal); Ketones Urine Negative (Negative); Leukocyte Esterase Urine Negative (Negative); Nitrate Urine Negative (Negative); Protein Urine Neg (Negative); Specific Gravity, Urine 1.005 (1.005-1.030); Urine Appearance Clear (CLEAR); Urine Color Yellow (Yellow); Urobilinogen Urine Norm (Negative); pH Urine 5 (5-7)
[2023-10-17 20:35] VITALS: BP 135/106; PULSE 97; O2SAT 100
[2023-10-17 20:47] LABS: Troponin 5 2HR Delta 0.00001 ABS# (0-10)
[2023-10-17 21:05] VITALS: BP 127/60; PULSE 102; RESP 16; TEMP 36.6; O2SAT 99
--- NOTE | 2023-10-17 21:15 | P.HP_ITS ---
Providers/Chief Complaint 2 Admitting Physician: Humaira García MD Primary Care Provider: SELMA Mckeon Chief Complaint: Heart fluttering History of Present Illness Alexa Cerda is a 52 year old female hx of breast cancer currently on chemo last chemotherapy session hours on Wednesday, she states positive with influenza on Wednesday, presented today with chief complaint of worsening of cough and palpitations. Patient stating that her palpitations started around 10 AM which stayed until she was evaluated in the ER, her palpitations improved with use of IV fluids she was in sinus rhythm sinus tachycardia heart rate improved from 116 to 70s Tylenol 3 and Robitussin for her dry cough Patient stating that she spiked fever 102 on Wednesday, No fever since Wednesday, Patient is stating that she noticed fever 102 on Wednesday and since then she has not noticed any fever, she has received Neulasta with her chemotherapy on Wednesday She was given Neulasta on Wednesday last week, Review of Systems 2 Const: Reports: fever(s) and chills Eyes: Denies: change in vision ENMT: Denies: throat pain Card: Reports: palpitations; Denies: chest pain Resp: Reports: dyspnea GI: Denies: abdominal pain : Denies: flank pain Musc: Denies: neck pain Medications/Allergies Home Medications Medication Instructions Recorded Confirmed Last Taken Type atorvastatin 20 mg tablet 20 mg PO DAILY 06/08/23 10/17/23 09/28/23 History bupropion HCl 150 mg 24 hr tablet, 150 mg PO QAM 06/08/23 10/17/23 09/28/23 History extended release ondansetron 4 mg disintegrating 4 mg PO Q6H PRN nausea and 09/20/23 10/17/23 09/19/23 Rx tablet vomiting #30 tabs prochlorperazine maleate 10 mg 10 mg PO Q4H PRN Mild Nausea #30 09/20/23 10/17/23 09/19/23 Rx tablet (Compazine) tabs Cranial prothesis #1 device 09/21/23 10/17/23 Unknown Rx lorazepam 1 mg tablet 0.5 - 1 mg (0.5 - 1 x 1 mg) PO Q6H 09/21/23 10/17/23 Unknown Rx PRN Severe Nausea #30 tabs olanzapine 5 mg tablet 5 mg PO QPM Breakthrough Nausea 09/21/23 10/17/23 Unknown Rx and Vomitting #30 tabs propranolol 10 mg tablet 40 mg PO BID 09/28/23 10/17/23 09/28/23 History hydrocortisone acetate 25 mg 25 mg OK BID PRN rectal discomfort 10/06/23 10/17/23 Unknown Rx rectal suppository #12 ea acyclovir 400 mg tablet 400 mg PO .COMPLEX #70 tabs 10/12/23 10/17/23 Unknown Rx benzonatate 200 mg capsule 200 mg PO TID PRN cough #60 caps 10/14/23 10/17/23 Unknown Rx fluticasone propionate 220 2 puff inhalation BID #1 g 10/14/23 10/17/23 Unknown Rx mcg/actuation HFA aerosol inhaler (Flovent HFA) famotidine 20 mg tablet (Pepcid) 20 mg PO BEDTIME 10/17/23 10/17/23 Unknown History loratadine 10 mg tablet (Claritin) 10 mg PO DAILY 10/17/23 10/17/23 Unknown History Allergies Allergy/AdvReac Type Severity Reaction Status Date / Time metronidazole Allergy ADR-Gastrointestinal Verified 10/17/23 17:50 Upset PFSH Acute 2 PFSH: Medical History History of migraine Breast cancer Hypertension Depression High cholesterol Surgical History History of removal of cyst Removal of 2 scalp cysts History of lumpectomy of right breast (04/27/23) History of right mastectomy (05/20/23) History of right mast/axillary dissection History of abdominal hysterectomy (2011) Family History Grandmother Cancer Diabetes Lung disease Stroke Mother CAD (coronary artery disease) Father Hyperlipidemia Hypertension Lung disease Prostate cancer Denies family history of Clotting disorder Dementia Psychiatric illness Chronic kidney disease (CKD) Suicide Family history of premature coronary artery disease Social History Smoking and tobacco/nicotine status: never used tobacco/nicotine Alcohol intake: current Alcohol intake frequency: few times a month Alcohol type: wine Vitals/I&O/Wt Last Vital Signs Temp 98.8 F 10/17/23 17:50 Pulse 97 10/17/23 20:35 Resp 16 10/17/23 17:50 BP 135/106 10/17/23 20:35 Pulse Ox 100 10/17/23 20:35 O2 Del Method Room Air 10/17/23 20:35 Weight last 48 hrs Weight 55.792 kg Physical Exam 2 Narrative: Patient is awake alert Dehydrated S1, S2 Sinus rhythm Bilateral breast without adventitious rhonchi or crackles Currently on room air Pleasant cooperative Experiencing dry cough No signs of edema Septic exam No encephalopathy No skin mottling small ulcerations in the nasal cavity Data 10/17/23 18:37 10/17/23 18:37 A&P Assessment and plan (1) Tachycardia: (2) Neutropenia: (3) Influenza: Plan Palpitations influenza + Sepsis Breast cancer, active chemo, immunocompromised small ulcerations in the nasal cavity SIRS criteria met with tachypnea, leukopenia Patient has received 2 L of IV fluids septic bolus Rule out PE will request CTA chest She has received IV antibiotics, she is afebrile She is neutropenic received Neulasta as well on Wednesday last week I will treat her with cefepime and vancomycin Continue acyclovir Patient is immunocompromise Neutropenic precautions Continue Tamiflu For dry cough I will give her Tylenol 3 and dextromethorphan, Robitussin DVT prophylaxis added Full code Cardiac diet Self interpretation of EKG: Sinus rhythm X-ray without remarkable infiltration Review of records: Patient received second cycle of cyclophosphamide andcycle 2 of cyclophosphamide/docetaxel. Attestations 2 Medical Necessity Statement*: More than 2 midnights anticipated Diagnoses Tachycardia R00.0 Neutropenia D70.9 Influenza J11.1
[2023-10-17] MEDS: piperacillin-tazobactam 4.5 GM in sodium chloride 0.9% (plus) 50 ML IV (21:30)
[2023-10-17 21:39] LABS: D Dimer 1.14 ug/mLFEU (0-0.59)
[2023-10-17 21:42] VITALS: BMI 20.5
[2023-10-17 21:45] LABS: Magnesium 1.9 mg/dL (1.7-2.3)
[2023-10-17 21:50] LABS: Procalcitonin 0.28 ng/mL (0-0.5)
[2023-10-17 21:54] VITALS: BP 135/106; PULSE 97; RESP 16; TEMP 37.1; O2SAT 100
[2023-10-17 22:03] LABS: Lactate (Lactic Acid level) 0.9 mmol/L (0.5-2.2)
[2023-10-17] MEDS: vancomycin 1,000 MG in sodium chloride 0.9% 250 ML 250 MG IV (22:19)
[2023-10-17] MEDS: heparin 5,000 unit/mL INJ 1 mL 5000 UNIT SUBCUT (22:19)
[2023-10-17 22:57] VITALS: PULSE 97
[2023-10-17] MEDS: sodium chloride 0.9% 1,000 ML 30 ML IV (23:30)
[2023-10-17] MEDS: acetaminophen-codeine 300-30mg Tablet 1 TAB PO (23:31)
[2023-10-17 23:33] LABS: Vitamin B12 > 2000 pg/mL (232-1245)
[2023-10-18] VITALS (16 sets, daily range): BP systolic 99–138; BP diastolic 63–83; PULSE 73–102; RESP 14–18; TEMP 36.7–37.4; O2SAT 95–99
--- NOTE | 2023-10-18 00:10 | ECG_ITS ---
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 Measurements Intervals [place] Rate: 99 P: 48 MS: 149 QRS: 66 QRSD: 77 T: 30 QT: 342 QTc: 440 Interpretive Statements SINUS RHYTHM POSSIBLE RIGHT VENTRICULAR CONDUCTION DELAY [RSR (QR) IN V1/V2] NONSPECIFIC T-WAVE ABNORMALITY INTERPRETATION BASED ON A DEFAULT AGE OF 40 YEARS Compared to ECG 10/17/2023 20:12:20 T-wave abnormality now present Electronically Signed On 10-18-2023 10:53:31 PATROL SERGEANT by Nelson Myles M.D. [id number]
[2023-10-18 01:28] LABS: Troponin 5 6HR Delta 0.00001 ng/L (0-12)
[2023-10-18] MEDS: vancomycin 750 MG in sodium chloride 0.9% 250 ML 250 MG IV ×2 (06:09→18:38)
[2023-10-18] MEDS: guaiFENesin-dextromethorphan UDC 10 mL 5 ML PO (06:14)
--- OUTSIDE RECORDS SUMMARY | 2023-10-18 06:18 | XMS_ITS | Continuity of Care Document ---
Author Name Unknown Organization [facility] Address [address] [place] [address]- Care Team Providers Care [employer] Specialist Name Role Phone Ifrah Mara HAHN Primary Care Physician [phone] Encounter [facility] Number [id number] Date(s): 04/27/23 - 04/27/23 [facility] [address] [place] [address]- [phone] Encounter Diagnosis Acquired breast deformity(Discharge Diagnosis) - 04/27/23 Discharge Disposition: .Discharge to Home (Routine) Attending Physician: Mathew Vidal MD Admitting Physician: Mathew Vidal MD Allergies, Adverse Reactions, Alerts Substance Reaction Severity Status metroNIDAZOLE Vomiting Severe Active Assessment and Plan Extracted from: Title:Instructions to Patients Author:Damari Jauregui RN Date:04/27/23 Gastroenterology How to Prevent Constipation After Surgery Constipation is a common problem after surgery. Many things can make constipation more likely after a surgery, including: ? ? Certain medicines, especially numbing medicines (anesthetics) and very strong pain medicines called opioids. ? ? Feeling stressed because of the surgery. ? ? Eating different foods than normal. ? ? Being less active. Symptoms of constipation include: ? ? Having fewer than three bowel movements a week. ? ? Straining to have a bowel movement. ? ? Having hard, dry, or eocofs-uqur-wwombo stools (feces). ? ? Discomfort in the lower abdomen, such as cramps or bloating. ? ? Not feeling relief after having a bowel movement. ? ? Nausea and vomiting. You can take steps to help prevent constipation after surgery. Follow these instructions at home: Eating and drinking ? ? Eat foods that have a lot of fiber in them, such as beans, bran, whole grains, and fresh fruits and vegetables. ? ? Limit foods that are high in fat and processed sugars, such as fried or sweet foods. These include macanese fries, hamburgers, cookies, and candy. ? ? Take a fiber supplement as told by your health care provider. If you are not taking a fiber supplement and you think you are not getting enough fiber from foods, talk to your health care provider about adding a fiber supplement to your diet. ? ? Drink enough fluid to keep your urine pale yellow. ? ? Drink clear fluids, especially water. Avoid drinking alcohol, caffeine, and soda. These can make constipation worse. Activity ? ? After surgery, return to your normal activities slowly, or when your health care provider says it is okay. ? ? Start walking as soon as you can. Try to go a little farther each day. ? ? Once your health care provider approves, do some sort of regular exercise. This helps prevent constipation. Bowel movements ? ? Go to the restroom when you have the urge to go. Do not hold it in. ? ? Try drinking something hot to get a bowel movement started. ? ? Keep track of how often you use the restroom. Medicines ? ? Take dcfw-gky-jjxpebp and prescription medicines only as told by your health care provider. ? ? Talk to your health care provider about medicines that may help prevent constipation, particularly if you have a history of constipation. Your health care provider may suggest a stool softener, laxative, or fiber supplement. ? ? Do not take any medicines without talking to your health care provider first. Contact a health care provider if: ? ? You used stool softeners or laxatives and still have not had a bowel movement within 24? 48 hours after using them. ? ? You have not had a bowel movement in 3 days. ? ? You have a fever. Get help right away if you have: ? ? Constipation that lasts for more than 4 days or if your symptoms get worse. ? ? Bright red blood in your stool. ? ? Pain in the abdomen or rectum. ? ? Very bad cramping. ? ? Thin, pencil-like stools. ? ? Unexplained weight loss. Summary ? ? Constipation is a common problem after surgery. Many things can make constipation more likely after a surgery, including certain medicines, eating different foods than normal, and being less active. ? ? Symptoms of constipation include having fewer than three bowel movements a week, straining to have a bowel movement, and cramps or bloating in the lower abdomen. ? ? To help prevent constipation, you should eat foods that are high in fiber, drink plenty of fluids, and get regular physical activity. ? ? Your health care provider may suggest medicines, such as stool softeners or laxatives, to help prevent constipation. This information is not intended to replace advice given to you by your health care provider. Make sure you discuss any questions you have with your health care provider. Document Revised: 08/14/2020 Document Reviewed: 08/14/2020 [employer] Patient Education ?? 2021 [employer] Obstetrics and Gynecology Breast Reduction, Care After This sheet gives you information about how to care for yourself after your procedure. Your health care provider may also give you more specific instructions. If you have problems or questions, contact your health care provider. What can I expect after the procedure? After the procedure, it is common to have: ? ? Pain, bruising, and swelling in your breasts. You will be given medicine to help relieve pain. ? ? Crusting under the breast. This may be caused by fluid leakage or skin loss. A small amount of skin loss is fairly normal and can be managed with an antibiotic ointment. Follow these instructions at home: Medicines ? ? Take ktvb-djg-sabhdck and prescription medicines only as told by your health care provider. ? ? If you were prescribed an antibiotic medicine or ointment, take it or apply it as told by your health care provider. Do not stop using the antibiotic even if you start to feel better. ? ? Ask your health care provider if the medicine prescribed to you: ? ? Requires you to avoid driving or using heavy machinery. ? ? Can cause constipation. You may need to take these actions to prevent or treat constipation: ? ? Drink enough fluid to keep your urine pale yellow. ? ? Take jiax-jid-zpamyup or prescription medicines. ? ? Eat foods that are high in fiber, such as beans, whole grains, and fresh fruits and vegetables. ? ? Limit foods that are high in fat and processed sugars, such as fried or sweet foods. Incision care ? ? Follow instructions from your health care provider about how to take care of your incisions. Make sure you: ? ? Wash your hands with soap and water before and after you change your bandage (dressing). If soap and water are not available, use hand concert manager. ? ? Change your dressing as told by your health care provider. ? ? Leave stitches (sutures), skin glue, or adhesive strips in place. These skin closures may need to stay in place for 2 weeks or longer. If adhesive strip edges start to loosen and curl up, you may trim the loose edges. Do not remove adhesive strips completely unless your health care provider tells you to do that. ? ? Check your incision areas every day for signs of infection. Check for: ? ? More redness, swelling, or pain. ? ? More fluid or blood. ? ? Warmth. ? ? Pus or a bad smell. Activity ? ? Rest as told by your health care provider. ? ? Avoid sitting for a long time without moving. Get up to take short walks every 1? 2 hours. This is important to improve blood flow and breathing. Ask for help if you feel weak or unsteady. ? ? Do not drive until your health care provider approves. ? ? Do not raise your arms above the level of your breasts for 10 days. ? ? Return to your normal activities as told by your health care provider. Ask your health care provider what activities are safe for you. ? ? Do not do physical activity that requires a lot of movement or energy for 1 month after surgery, or as long as told by your health care provider. ? ? For 3 weeks, or as long as told by your health care provider: ? ? Do not lift anything that is heavier than 5 lb (2.3 kg) with one arm. ? ? Do not lift anything that is heavier than 10 lb (4.5 kg) with both arms. Lifestyle ? ? Do not take baths, swim, or use a hot tub until your health care provider approves. Ask your health care provider if you may take showers. You may only be allowed to take sponge baths. ? ? Do not use any products that contain nicotine or tobacco, such as cigarettes, e-cigarettes, and chewing tobacco. These can delay incision healing after surgery. If you need help quitting, ask your health care provider. ? ? Avoid being in the sun for long periods of time. General instructions ? ? Wear compression stockings as told by your health care provider. These stockings help to prevent blood clots and reduce swelling in your legs. ? ? If you have tubes draining fluid from your surgical area, care for them as told by your health care provider. ? ? Follow instructions from your health care provider about eating or drinking restrictions. ? ? Wear a soft bra 24 hours a day for 1 month, or as long as directed. You may remove your bra while bathing. Do not wear underwire bras. ? ? Do not sleep on your belly for 4? 6 weeks. ? ? Keep all follow-up visits as told by your health care provider. This is important. Contact a health care provider if you have: ? ? Any of these signs of infection: ? ? More redness, swelling, or pain around your incision area or in your breast. ? ? More fluid or blood coming from your incision area. ? ? Your incision or your breast feeling warm to the touch. ? ? Pus or a bad smell coming from your incision area. ? ? Nausea or vomiting that lasts for more than 2 days. ? ? Pain that does not get better with medicine. ? ? A cough. ? ? Difficulty moving your arm or pain when moving your arm. ? ? Areas of blood or fluid collecting in your breast. Get help right away if you have: ? ? Chest pain that is new or feels different from your pain after surgery. ? ? Trouble breathing or shortness of breath. ? ? Swelling in your legs or arms. ? ? You have redness, warmth, or pain in your leg or arm. ? ? A fever. ? ? Bleeding from your incision or discharge coming from your nipple that will not go away. ? ? Swelling that is worse in one breast than in the other. Summary ? ? After the procedure, it is common to have pain, bruising, and swelling in your breast. You will be given medicine to help relieve pain. ? ? Follow instructions from your health care provider about what activities you can do and any restrictions you may have after the procedure. ? ? Follow instructions from your health care provider about how to take care of your incisions. ? ? Check your incision areas every day for signs of infection. ? ? Contact your health care provider if you notice any signs of infection. This information is not intended to replace advice given to you by your health care provider. Make sure you discuss any questions you have with your health care provider. Document Revised: 03/29/2020 Document Reviewed: 03/29/2020 [employer] Patient Education ?? 2021 [employer] Lumpectomy, Care After This sheet gives you information about how to care for yourself after your procedure. Your health care provider may also give you more specific instructions. If you have problems or questions, contact your health care provider. What can I expect after the procedure? After the procedure, it is common to have: ? ? Breast swelling. ? ? Breast tenderness. ? ? Stiffness in your arm or shoulder. ? ? A change in the shape and feel of your breast. ? ? Scar tissue that feels hard to the touch in the area where the lump was removed. Follow these instructions at home: Medicines ? ? Take bwmu-snf-gpcyhwx and prescription medicines only as told by your health care provider. ? ? If you were prescribed an antibiotic medicine, take it as told by your health care provider. Do not stop taking the antibiotic even if you start to feel better. ? ? Ask your health care provider if the medicine prescribed to you: ? ? Requires you to avoid driving or using heavy machinery. ? ? Can cause constipation. You may need to take these actions to prevent or treat constipation: ? ? Drink enough fluid to keep your urine pale yellow. ? ? Take baij-nsg-eopkipr or prescription medicines. ? ? Eat foods that are high in fiber, such as beans, whole grains, and fresh fruits and vegetables. ? ? Limit foods that are high in fat and processed sugars, such as fried or sweet foods. Incision care ? ? Follow instructions from your health care provider about how to take care of your incision. Make sure you: ? ? Wash your hands with soap and water before and after you change your bandage (dressing). If soap and water are not available, use hand concert manager. ? ? Change your dressing as told by your health care provider. ? ? Leave stitches (sutures), skin glue, or adhesive strips in place. These skin closures may need to stay in place for 2 weeks or longer. If adhesive strip edges start to loosen and curl up, you may trim the loose edges. Do not remove adhesive strips completely unless your health care provider tells you to do that. ? ? Check your incision area every day for signs of infection. Check for: ? ? More redness, swelling, or pain. ? ? Fluid or blood. ? ? Warmth. ? ? Pus or a bad smell. ? ? Keep your dressing clean and dry. ? ? If you were sent home with a surgical drain in place, follow instructions from your health care provider about emptying it. Bathing ? ? Do not take baths, swim, or use a hot tub until your health care provider approves. ? ? Ask your health care provider if you may take showers. You may only be allowed to take sponge baths. Activity ? ? Rest as told by your health care provider. ? ? Avoid sitting for a long time without moving. Get up to take short walks every 1? 2 hours. This is important to improve blood flow and breathing. Ask for help if you feel weak or unsteady. ? ? Return to your normal activities as told by your health care provider. Ask your health care provider what activities are safe for you. ? ? Be careful to avoid any activities that could cause an injury to your arm on the side of your surgery. ? ? Do not lift anything that is heavier than 10 lb (4.5 kg), or the limit that you are told, until your health care provider says that it is safe. Avoid lifting with the arm that is on the side of your surgery. ? ? Do not carry heavy objects on your shoulder on the side of your surgery. ? ? Do exercises to keep your shoulder and arm from getting stiff and swollen. Talk with your health care provider about which exercises are safe for you. General instructions ? ? Wear a supportive bra as told by your health care provider. ? ? Raise (elevate) your arm above the level of your heart while you are sitting or lying down. ? ? Do not wear tight jewelry on your arm, wrist, or fingers on the side of your surgery. ? ? Keep all follow-up visits as told by your health care provider. This is important. ? ? You may need to be screened for extra fluid around the lymph nodes and swelling in the breast and arm (lymphedema). Follow instructions from your health care provider about how often you should be checked. ? ? If you had any lymph nodes removed during your procedure, be sure to tell all of your health care providers. This is important information to share before you are involved in certain procedures, such as having blood tests or having your blood pressure taken. Contact a health care provider if: ? ? You develop a rash. ? ? You have a fever. ? ? Your pain medicine is not working. ? ? You have swelling, weakness, or numbness in your arm that does not improve after a few weeks. ? ? You have new swelling in your breast. ? ? You have any of these signs of infection: ? ? More redness, swelling, or pain in your incision area. ? ? Fluid or blood coming from your incision. ? ? Warmth coming from the incision area. ? ? Pus or a bad smell coming from your incision. Get help right away if you have: ? ? Very bad pain in your breast or arm. ? ? Swelling in your legs or arms. ? ? Redness, warmth, or pain in your leg or arm. ? ? Chest pain. ? ? Difficulty breathing. Summary ? ? After the procedure, it is common to have breast tenderness, swelling in your breast, and stiffness in your arm and shoulder. ? ? Follow instructions from your health care provider about how to take care of your incision. ? ? Do not lift anything that is heavier than 10 lb (4.5 kg), or the limit that you are told, until your health care provider says that it is safe. Avoid lifting with the arm that is on the side of your surgery. ? ? If you had any lymph nodes removed during your procedure, be sure to tell all of your health care providers. This is important information to share before you are involved in certain procedures, such as having blood tests or having your blood pressure taken. This information is not intended to replace advice given to you by your health care provider. Make sure you discuss any questions you have with your health care provider. Document Revised: 04/01/2020 Document Reviewed: 04/01/2020 [employer] Patient Education ?? 2021 [employer]. Oncology [place] Lymph Node Biopsy, Care After The following information offers guidance on how to care for yourself after your procedure. Your health care provider may also give you more specific instructions. If you have problems or questions, contact your health care provider. What can I expect after the procedure? After the procedure, it is common to have: ? ? Blue urine or stool for the next 24? 48 hours. This is normal. It is caused by the dye used during the procedure. ? ? Blue skin at the injection site. This may last for up to 8 weeks. ? ? Numbness, tingling, or pain near your incision site. ? ? Swelling or bruising near your incision. Follow these instructions at home: Incision care ? ? Follow instructions from your health care provider about how to take care of your incision. Make sure you: ? ? Wash your hands with soap and water for at least 20 seconds before and after you change your bandage (dressing). If soap and water are not available, use hand concert manager. ? ? Change your dressing as told by your health care provider. ? ? Leave stitches (sutures), skin glue, or adhesive strips in place. These skin closures may need to stay in place for 2 weeks or longer. If adhesive strip edges start to loosen and curl up, you may trim the loose edges. Do not remove adhesive strips completely unless your health care provider tells you to do that. ? ? Check your incision area every day for signs of infection. Check for: ? ? Redness, swelling, or more pain. ? ? Fluid or blood. ? ? Warmth. ? ? Pus or a bad smell. ? ? Do not take baths, swim, or use a hot tub until your health care provider approves. Ask your health care provider if you can take showers. You may be able to shower 24 hours after your procedure. After a shower, pat the incision area dry with a clean towel. Do not rub the incision. That could cause bleeding. Activity ? ? Avoid activities that take a lot of effort. ? ? If you were given a sedative during the procedure, it can affect you for several hours. Do not drive or operate machinery until your health care provider says that it is safe. ? ? Return to your normal activities as told by your health care provider. Ask your health care provider what activities are safe for you. General instructions ? ? Take pvje-vup-xedtlrl and prescription medicines only as told by your health care provider. ? ? You may resume your regular diet. ? ? If the procedure was done on or near the lymph nodes under your arm (axillary lymph nodes), do not have your blood pressure taken or have blood drawn from the arm on the side of the biopsy until your health care provider says it is okay. ? ? You may need to be screened for extra fluid around the lymph nodes (lymphedema). Follow instructions from your health care provider about how often you should be checked. ? ? Keep all follow-up visits. This is important. Contact a health care provider if: ? ? Your pain medicine is not helping. ? ? You have nausea and vomiting. ? ? You have redness, swelling, or more pain around your biopsy site. ? ? You have fluid, blood, pus, or a bad smell coming from your incision. ? ? Your incision feels warm to the touch, you have a fever, or chills. ? ? You have any new bruising. Get help right away if: ? ? You have pain that is getting worse, and your medicine is not helping. ? ? You have vomiting that will not stop. ? ? You have chest pain or trouble breathing. These symptoms may represent a serious problem that is an emergency. Do not wait to see if the symptoms will go away. Get medical help right away. Call your local emergency services (911 in the [place] Do not drive yourself to the hospital. Summary ? ? After the procedure, it is common to have blue urine or stool for the next 24? 48 hours. ? ? Take qomr-rix-qubwkqk and prescription medicines only as told by your health care provider. ? ? Follow instructions from your health care provider about how to take care of your incision. Check your incision area every day for signs of infection. ? ? Get help right away if you have chest pain or trouble breathing. This information is not intended to replace advice given to you by your health care provider. Make sure you discuss any questions you have with your health care provider. Document Revised: 07/10/2021 Document Reviewed: 07/10/2021 [employer] Patient Education ?? 2021 [employer]. Pharmacology General Anesthesia, Adult, Care After This sheet gives you information about how to care for yourself after your procedure. Your health care provider may also give you more specific instructions. If you have problems or questions, contact your health care provider. What can I expect after the procedure? After the procedure, the following side effects are common: ? ? Pain or discomfort at the IV site. ? ? Nausea. ? ? Vomiting. ? ? Sore throat. ? ? Trouble concentrating. ? ? Feeling cold or chills. ? ? Feeling weak or tired. ? ? Sleepiness and fatigue. ? ? Soreness and body aches. These side effects can affect parts of the body that were not involved in surgery. Follow these instructions at home: For the time period you were told by your health care provider: ? ? Rest. ? ? Do not participate in activities where you could fall or become injured. ? ? Do not drive or use machinery. ? ? Do not drink alcohol. ? ? Do not take sleeping pills or medicines that cause drowsiness. ? ? Do not make important decisions or sign legal documents. ? ? Do not take care of children on your own. Eating and drinking ? ? Follow any instructions from your health care provider about eating or drinking restrictions. ? ? When you feel hungry, start by eating small amounts of foods that are soft and easy to digest (bland), such as toast. Gradually return to your regular diet. ? ? Drink enough fluid to keep your urine pale yellow. ? ? If you vomit, rehydrate by drinking water, juice, or clear broth. General instructions ? ? If you have sleep apnea, surgery and certain medicines can increase your risk for breathing problems. Follow instructions from your health care provider about wearing your sleep device: ? ? Anytime you are sleeping, including during daytime naps. ? ? While taking prescription pain medicines, sleeping medicines, or medicines that make you drowsy. ? ? Have a responsible adult stay with you for the time you are told. It is important to have someone help care for you until you are awake and alert. ? ? Return to your normal activities as told by your health care provider. Ask your health care provider what activities are safe for you. ? ? Take sxmf-flq-agrzaqm and prescription medicines only as told by your health care provider. ? ? If you smoke, do not smoke without supervision. ? ? Keep all follow-up visits as told by your health care provider. This is important. Contact a health care provider if: ? ? You have nausea or vomiting that does not get better with medicine. ? ? You cannot eat or drink without vomiting. ? ? You have pain that does not get better with medicine. ? ? You are unable to pass urine. ? ? You develop a skin rash. ? ? You have a fever. ? ? You have redness around your IV site that gets worse. Get help right away if: ? ? You have difficulty breathing. ? ? You have chest pain. ? ? You have blood in your urine or stool, or you vomit blood. Summary ? ? After the procedure, it is common to have a sore throat or nausea. It is also common to feel tired. ? ? Have a responsible adult stay with you for the time you are told. It is important to have someone help care for you until you are awake and alert. ? ? When you feel hungry, start by eating small amounts of foods that are soft and easy to digest (bland), such as toast. Gradually return to your regular diet. ? ? Drink enough fluid to keep your urine pale yellow. ? ? Return to your normal activities as told by your health care provider. Ask your health care provider what activities are safe for you. This information is not intended to replace advice given to you by your health care provider. Make sure you discuss any questions you have with your health care provider. Document Revised: 06/12/2021 Document Reviewed: 01/09/2021 [employer] Patient Education ?? 2021 [employer] Future Appointments Appointment Date:05/03/2023 02:15:00 PM Scheduled Provider:Hossein Harrison MD Location:[facility] Appointment Type:Hospital Follow Up (Established) Appointment Date:05/10/2023 01:45:00 PM Scheduled Provider:Mathew Vidal MD Location: Breast Surg Appointment Type:Established Patient Medications acetaminophen-hydrocodone 325 mg-10 mg oral tablet 1 tab, By mouth, Q6H, PRN Pain, 20 tab, 0, 0, Substitution Permitted, [facility], 65, Height (inches) (Clinical), 04/27/23 11:53:00 CDT, in, 54.6, Weight (kg) (Clinical), 04/27/23 11:53:00 CDT, kg Start Date: 04/27/23 Status: Ordered Aspir 81 81 mg, By mouth, Daily, Refill(s) 0 Start Date: 04/09/23 Status: Ordered atorvastatin 20 mg, By mouth, QPM (every evening), # 30 tab, Refill(s) 0 Start Date: 04/09/23 Status: Ordered buPROPion 150 mg/24 hours oral extended release tablet 150 mg = 1 tab, By mouth, Q24H, # 30 tab, Refill(s) 0 Start Date: 04/07/23 Status: Ordered Bystolic 2.5 mg, By mouth, Daily, # 30 tab, Refill(s) 0 Start Date: 04/07/23 Status: Ordered Fish Oil By mouth, Daily, Refill(s) 0 Start Date: 04/09/23 Status: Ordered lisinopril 40 mg oral tablet 40 mg = 1 tab, By mouth, Daily, # 30 tab, Refill(s) 0 Start Date: 04/07/23 Status: Ordered propranolol 40 mg oral tablet 40 mg = 1 tab, By mouth, BID, # 60 tab, Refill(s) 0 Start Date: 04/07/23 Status: Ordered Problem List Condition Confirmation Course Effective Dates Status Health St atus Informant 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 Active Procedures Procedure Date Related Diagnosis Body Site Status BREAST REDUCTION 04/27/23 Complete d BREAST REDUCTION 04/27/23 Complete d BX/EXC LYMPH NODE OPEN DEEP AXILLARY NODE 04/27/23 Completed MASTECTOMY PARTIAL 04/27/23 Comple shiv Dental surgery 2021 Completed Hysterectomy 2011 Completed Results Laboratory List Name Date BMP 04/27/23 Most recent to oldest [Reference Range]: 1 Anion Gap [2-15 mEq/L] 7 mEq/L (04/27/23 11:50 AM) eGFR CKD-EPI [>=61 mL/min/1.73 m2] 84 mL /min/1.73 m2 (04/27/23 11:50 AM) Glucose, Serum/Plasma [70-100 mg/dL] 107 mg/dL *HI* (04/27/23 11:50 AM) Sodium [136-145 mEq/L] 139 mEq/L (04/27/23 11:50 AM) Potassium [3.5-5.1 mEq/L] 3.7 mEq/L (04/27/23 11:50 AM) Chloride [98-107 mEq/L] 104 mEq/L (04/27/23 11:50 AM) CO2 [21-32 mEq/L] 28 mEq/L (04/27/23 11:50 AM) BUN [7-18 mg/dL] 7 mg/dL (04/27/23 11:50 AM) Creatinine [0.55-1.02 mg/dL] 0.83 mg/dL (04/27/23 11:50 AM) Calcium [8.3-10.6 mg/dL] 9.2 mg/dL (04/27/23 11:50 AM) Radiology Reports * Exam Date Time Procedure Performing Provider Status 04/27/23 11:56 AM 04/27/23 11:53 AM [facility] Mammo Post Procedure Uni MA Proc US Breast Localization Right Auth (Verified) Auth (Verified) Notes: ([facility] Mammo Post Procedure Uni) Reason For Exam: needle loc;Breast cancer, right (MA Proc US Breast Localization Right) Reason For Exam: needle loc;Breast cancer, right REPORT [facility] Mammo Post Procedure Uni PROCEDURE: Ultrasound-guided right breast wire localization x2, followed by unilateral digital mammogram of the right breast. HISTORY: 52-year-old female. 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 Patient had additional suspicious mass identified in the more anterior upper inner right breast on staging MRI, corresponding with a 1.0 cm suspicious hypoechoic mass identified in the right breast 1:00 2 cm from nipple on ultrasound. Ultrasound- guided biopsy of the mass in the 1:00-2 cm position was not performed upon request of the patient's breast surgeon. Rather, surgeon requested ultrasound- guided localization of the additional mass in the 1:00-2 cmposition. Because this mass has not yet been previously biopsied, and due to lack of definitive mammographic correlate, the decision was made to place a biopsy marking clip in the additional mass in the 1:00-2 cm position prior to ultrasound-guided localization to ensure accuracy of excision on pending surgical specimen radiograph. This was discussed with Dr. Vidal, and he is agreeable to this p hannah. MEDICATIONS: 6 cc buffered lidocaine SC; 10 cc buffered lidocaine with epinephrine SC. CONSENT: Obtained after the explanation of risks, benefits, and alternatives and placed in the chart. Timeout was performed. PROCEDURE DETAILS: The patient was placed in the supine position. Ultrasound was used to localize the mass in the 1:00-2 cm position. The breast was prepped and draped in a sterile manner. The skin was anesthetized with lidocaine. The skin and deep tissues were anesthetized with buffered lidocaine.Under ultrasound guidance a biopsy marking clip was advanced from medial approach to the level of the targeted mass; the biopsy marking clip was deployed within the mass. Ultrasound guidance was thenused to place a 5 cm 20G needle with the tip just beyond the lesion. A localization wire was placedthrough the needle, passing through the lesion, with the hooked tip just beyond. The needle was removed. The patient was then placed in the supine position. Ultrasound was used to localize the previously biopsied mass/site of biopsy-proven malignancy at the 1:00-6 cm position in the right breast. The previously placed biopsy marking clip was noted to have migrated anterior to the previously biopsied mass. The overlying skin was anesthetized with lidocaine. The skin and deep tissues were anesthetizedwith buffered lidocaine. Ultrasound guidance was used to place a second 5 cm 20G needle with the tip just beyond the lesion. A second localization wire was placed through the needle, passing through the lesion, with the hooked tip just beyond. The needle was removed, and the areas were both cleansed and bandaged, securing the localization wires. The patient tolerated the procedure well and there were no complications. Postprocedure 2 view digital mammogram demonstrates accurate placement of the localization wires. The biopsy marking clip placed at time of ultrasound-guided biopsy on 03/31/2023 is present anterior to the previously biopsied mass in the 1:00-6 cm position, along the anterior margin of the associated architectural distortion. Annotated postprocedure images will be available to the patient's surgeon in the operating room. IMPRESSION: Successful right breast wire localization x2. Electronically signed by: Dr Yoav Bolaños 04/27/2023 2:14 PM Radiologist Yoav Bolaños MD Signed 04/27/23 14:14:57 (Electronic Signature) [employer] RLO Technologist Amy Lacy Vital Signs Most recent to oldest [Reference Range]: 1 2 3 Blood Pressure 159/78mmHg (04/27/23 9:52 PM) 155/71mmHg (04/27/23 9:36 PM) 137/72mmHg (04/27/23 9:22 PM) Height (inches) (Clinical) 65 in (04/27/23 11:53 AM) 65 in (04/27/23 11:53 AM) Weight (kg) (Clinical) 54.6 kg (04/27/23 11:53 AM) 54.6 kg (04/27/23 11:53 AM) BMI (Clinical) 20 kg/m2 (04/27/23 11:53 AM) Scale Type Bed (04/27/23 11:53 AM) Bed (04/27/23 11:53 AM) Social History Social History Type Response Smoking Status Never smoker; Smokel ess tobacco use: Never; Has the patient smoked in the last 365 days, even once? No entered on: 04/09/23 Sex Female Implantable Device List Procedure Provider Procedure Date Device Type Site Unknown Unknown 04/27/23 Unknown Breast, Right Device Identifier Serial Number Lot or Batch Number Manufacturing Date Expiration Date Distinct Identification Code MRI Safety Implantable Status Assigning Authority Unknown Unknown [id number] Unknown 04/06/25 Unknown Unknown Active Unknown Procedure Provider Procedure Date Device Type Site BCC Biopsy Unknown 03/31/23 Unknown Unknown Device Identifier Serial Number Lot or Batch Number Manufacturing Date Expiration Date Distinct Identification Code MRI Safety Implantable Status Assigning Authority [id number] Unknown [id number] Unknown 03/09/25 Unknown MR [employer] Active GS1 Hospital Discharge Instructions Patient Education 04/27/2023 21:01:00 How to Prevent Constipation After Surgery How to Prevent Constipation After Surgery Constipation is a common problem after surgery. Many things can make constipation more likely aftera surgery, including: ??? Certain medicines, especially numbing medicines (anesthetics) and very strong pain medicines called opioids. ??? Feeling stressed because of the surgery. ??? Eating different foods than normal. ??? Being less active. Symptoms of constipation include: ??? Having fewer than three bowel movements a week. ??? Straining to have a bowel movement. ??? Having hard, dry, or muyjlm-xabx-nsnuqi stools (feces). ??? Discomfort in the lower abdomen, such as cramps or bloating. ??? Not feeling relief after having a bowel movement. ??? Nausea and vomiting. You can take steps to help prevent constipation after surgery. Follow these instructions at home: Eating and drinking ??? Eat foods that have a lot of fiber in them, such as beans, bran, whole grains, and fresh fruitsand vegetables. ??? Limit foods that are high in fat and processed sugars, such as fried or sweet foods. These include macanese fries, hamburgers, cookies, and candy. ??? Take a fiber supplement as told by your health care provider. If you are not taking a fiber supplement and you think you are not getting enough fiber from foods, talk to your health care providerabout adding a fiber supplement to your diet. ??? Drink enough fluid to keep your urine pale yellow. ??? Drink clear fluids, especially water. Avoid drinking alcohol, caffeine, and soda. These can make constipation worse. Activity ??? After surgery, return to your normal activities slowly, or when your health care provider says it is okay. ??? Start walking as soon as you can. Try to go a little farther each day. ??? Once your health care provider approves, do some sort of regular exercise. This helps prevent constipation. Bowel movements ??? Go to the restroom when you have the urge to go. Do not hold it in. ??? Try drinking something hot to get a bowel movement started. ??? Keep track of how often you use the restroom. Medicines ??? Take ggqn-vvf-rrsteue and prescription medicines only as told by your health care provider. ??? Talk to your health care provider about medicines that may help prevent constipation, particularly if you have a history of constipation. Your health care provider may suggest a stool softener, laxative, or fiber supplement. ??? Do not take any medicines without talking to your health care provider first. Contact a health care provider if: ??? You used stool softeners or laxatives and still have not had a bowel movement within 24???48 hours after using them. ??? You have not had a bowel movement in 3 days. ??? You have a fever. Get help right away if you have: ??? Constipation that lasts for more than 4 days or if your symptoms get worse. ??? Bright red blood in your stool. ??? Pain in the abdomen or rectum. ??? Very bad cramping. ??? Thin, pencil-like stools. ??? Unexplained weight loss. Summary ??? Constipation is a common problem after surgery. Many things can make constipation more likely after a surgery, including certain medicines, eating different foods than normal, and being less active. ??? Symptoms of constipation include having fewer than three bowel movements a week, straining to have a bowel movement, and cramps or bloating in the lower abdomen. ??? To help prevent constipation, you should eat foods that are high in fiber, drink plenty of fluids, and get regular physical activity. ??? Your health care provider may suggest medicines, such as stool softeners or laxatives, to help prevent constipation. This information is not intended to replace advice given to you by your health care provider. Make sure you discuss any questions you have with your health care provider. Document Revised: 08/14/2020 Document Reviewed: 08/14/2020 [email or web address] Patient Education ?? 2021 [email or web address] 04/27/2023 21:01:00 General Anesthesia, Adult, Care After General Anesthesia, Adult, Care After This sheet gives you information about how to care for yourself after your procedure. Your health care provider may also give you more specific instructions. If you have problems or questions, contact your health care provider. What can I expect after the procedure? After the procedure, the following side effects are common: ??? Pain or discomfort at the IV site. ??? Nausea. ??? Vomiting. ??? Sore throat. ??? Trouble concentrating. ??? Feeling cold or chills. ??? Feeling weak or tired. ??? Sleepiness and fatigue. ??? Soreness and body aches. These side effects can affect parts of the body that were not involvedin surgery. Follow these instructions at home: For the time period you were told by your health care provider: ??? Rest. ??? Do not participate in activities where you could fall or become injured. ??? Do not drive or use machinery. ??? Do not drink alcohol. ??? Do not take sleeping pills or medicines that cause drowsiness. ??? Do not make important decisions or sign legal documents. ??? Do not take care of children on your own. Eating and drinking ??? Follow any instructions from your health care provider about eating or drinking restrictions. ??? When you feel hungry, start by eating small amounts of foods that are soft and easy to digest (bland), such as toast. Gradually return to your regular diet. ??? Drink enough fluid to keep your urine pale yellow. ??? If you vomit, rehydrate by drinking water, juice, or clear broth. General instructions ??? If you have sleep apnea, surgery and certain medicines can increase your risk for breathing problems. Follow instructions from your health care provider about wearing your sleep device: ??? Anytime you are sleeping, including during daytime naps. ??? While taking prescription pain medicines, sleeping medicines, or medicines that make you drowsy. ??? Have a responsible adult stay with you for the time you are told. It is important to have someone help care for you until you are awake and alert. ??? Return to your normal activities as told by your health care provider. Ask your health care provider what activities are safe for you. ??? Take potn-vwu-ujdkqqa and prescription medicines only as told by your health care provider. ??? If you smoke, do not smoke without supervision. ??? Keep all follow-up visits as told by your health care provider. This is important. Contact a health care provider if: ??? You have nausea or vomiting that does not get better with medicine. ??? You cannot eat or drink without vomiting. ??? You have pain that does not get better with medicine. ??? You are unable to pass urine. ??? You develop a skin rash. ??? You have a fever. ??? You have redness around your IV site that gets worse. Get help right away if: ??? You have difficulty breathing. ??? You have chest pain. ??? You have blood in your urine or stool, or you vomit blood. Summary ??? After the procedure, it is common to have a sore throat or nausea. It is also common to feel tired. ??? Have a responsible adult stay with you for the time you are told. It is important to have someone help care for you until you are awake and alert. ??? When you feel hungry, start by eating small amounts of foods that are soft and easy to digest (bland), such as toast. Gradually return to your regular diet. ??? Drink enough fluid to keep your urine pale yellow. ??? Return to your normal activities as told by your health care provider. Ask your health care provider what activities are safe for you. This information is not intended to replace advice given to you by your health care provider. Make sure you discuss any questions you have with your health care provider. Document Revised: 06/12/2021 Document Reviewed: 01/09/2021 [employer] Patient Education ?? 2021 [email or web address] 04/27/2023 21:01:00 Breast Reduction, Care After Breast Reduction, Care After This sheet gives you information about how to care for yourself after your procedure. Your health care provider may also give you more specific instructions. If you have problems or questions, contact your health care provider. What can I expect after the procedure? After the procedure, it is common to have: ??? Pain, bruising, and swelling in your breasts. You will be given medicine to help relieve pain. ??? Crusting under the breast. This may be caused by fluid leakage or skin loss. A small amount of skin loss is fairly normal and can be managed with an antibiotic ointment. Follow these instructions at home: Medicines ??? Take utds-rqr-wjjmtcx and prescription medicines only as told by your health care provider. ??? If you were prescribed an antibiotic medicine or ointment, take it or apply it as told by your health care provider. Do not stop using the antibiotic even if you start to feel better. ??? Ask your health care provider if the medicine prescribed to you: ??? Requires you to avoid driving or using heavy machinery. ??? Can cause constipation. You may need to take these actions to prevent or treat constipation: ??? Drink enough fluid to keep your urine pale yellow. ??? Take jpgq-euw-mssspzb or prescription medicines. ??? Eat foods that are high in fiber, such as beans, whole grains, and fresh fruits and vegetables. ??? Limit foods that are high in fat and processed sugars, such as fried or sweet foods. Incision care ??? Follow instructions from your health care provider about how to take care of your incisions. Make sure you: ??? Wash your hands with soap and water before and after you change your bandage (dressing). If soap and water are not available, use hand concert manager. ??? Change your dressing as told by your health care provider. ??? Leave stitches (sutures), skin glue, or adhesive strips in place. These skin closures may need to stay in place for 2 weeks or longer. If adhesive strip edges start to loosen and curl up, you maytrim the loose edges. Do not remove adhesive strips completely unless your health care provider tells you to do that. ??? Check your incision areas every day for signs of infection. Check for: ??? More redness, swelling, or pain. ??? More fluid or blood. ??? Warmth. ??? Pus or a bad smell. Activity ??? Rest as told by your health care provider. ??? Avoid sitting for a long time without moving. Get up to take short walks every 1???2 hours. This is important to improve blood flow and breathing. Ask for help if you feel weak or unsteady. ??? Do not drive until your health care provider approves. ??? Do not raise your arms above the level of your breasts for 10 days. ??? Return to your normal activities as told by your health care provider. Ask your health care provider what activities are safe for you. ??? Do not do physical activity that requires a lot of movement or energy for 1 month after surgery, or as long as told by your health care provider. ??? For 3 weeks, or as long as told by your health care provider: ??? Do not lift anything that is heavier than 5 lb (2.3 kg) with one arm. ??? Do not lift anything that is heavier than 10 lb (4.5 kg) with both arms. Lifestyle ??? Do not take baths, swim, or use a hot tub until your health care provider approves. Ask your health care provider if you may take showers. You may only be allowed to take sponge baths. ??? Do not use any products that contain nicotine or tobacco, such as cigarettes, e-cigarettes, andchewing tobacco. These can delay incision healing after surgery. If you need help quitting, ask your health care provider. ??? Avoid being in the sun for long periods of time. General instructions ??? Wear compression stockings as told by your health care provider. These stockings help to prevent blood clots and reduce swelling in your legs. ??? If you have tubes draining fluid from your surgical area, care for them as told by your health care provider. ??? Follow instructions from your health care provider about eating or drinking restrictions. ??? Wear a soft bra 24 hours a day for 1 month, or as long as directed. You may remove your bra while bathing. Do not wear underwire bras. ??? Do not sleep on your belly for 4???6 weeks. ??? Keep all follow-up visits as told by your health care provider. This is important. Contact a health care provider if you have: ??? Any of these signs of infection: ??? More redness, swelling, or pain around your incision area or in your breast. ??? More fluid or blood coming from your incision area. ??? Your incision or your breast feeling warm to the touch. ??? Pus or a bad smell coming from your incision area. ??? Nausea or vomiting that lasts for more than 2 days. ??? Pain that does not get better with medicine. ??? A cough. ??? Difficulty moving your arm or pain when moving your arm. ??? Areas of blood or fluid collecting in your breast. Get help right away if you have: ??? Chest pain that is new or feels different from your pain after surgery. ??? Trouble breathing or shortness of breath. ??? Swelling in your legs or arms. ??? You have redness, warmth, or pain in your leg or arm. ??? A fever. ??? Bleeding from your incision or discharge coming from your nipple that will not go away. ??? Swelling that is worse in one breast than in the other. Summary ??? After the procedure, it is common to have pain, bruising, and swelling in your breast. You willbe given medicine to help relieve pain. ??? Follow instructions from your health care provider about what activities you can do and any restrictions you may have after the procedure. ??? Follow instructions from your health care provider about how to take care of your incisions. ??? Check your incision areas every day for signs of infection. ??? Contact your health care provider if you notice any signs of infection. This information is not intended to replace advice given to you by your health care provider. Make sure you discuss any questions you have with your health care provider. Document Revised: 03/29/2020 Document Reviewed: 03/29/2020 [employer] Patient Education ?? 2021 [employer] 04/27/2023 21:01:00 [place] Lymph Node Biopsy, Care After [place] Lymph Node Biopsy, Care After The following information offers guidance on how to care for yourself after your procedure. Your health care provider may also give you more specific instructions. If you have problems or questions, contact your health care provider. What can I expect after the procedure? After the procedure, it is common to have: ??? Blue urine or stool for the next 24???48 hours. This is normal. It is caused by the dye used during the procedure. ??? Blue skin at the injection site. This may last for up to 8 weeks. ??? Numbness, tingling, or pain near your incision site. ??? Swelling or bruising near your incision. Follow these instructions at home: Incision care ??? Follow instructions from your health care provider about how to take care of your incision. Make sure you: ??? Wash your hands with soap and water for at least 20 seconds before and after you change your bandage (dressing). If soap and water are not available, use hand concert manager. ??? Change your dressing as told by your health care provider. ??? Leave stitches (sutures), skin glue, or adhesive strips in place. These skin closures may need to stay in place for 2 weeks or longer. If adhesive strip edges start to loosen and curl up, you maytrim the loose edges. Do not remove adhesive strips completely unless your health care provider tells you to do that. ??? Check your incision area every day for signs of infection. Check for: ??? Redness, swelling, or more pain. ??? Fluid or blood. ??? Warmth. ??? Pus or a bad smell. ??? Do not take baths, swim, or use a hot tub until your health care provider approves. Ask your health care provider if you can take showers. You may be able to shower 24 hours after your procedure.After a shower, pat the incision area dry with a clean towel. Do not rub the incision. That could cause bleeding. Activity ??? Avoid activities that take a lot of effort. ??? If you were given a sedative during the procedure, it can affect you for several hours. Do not drive or operate machinery until your health care provider says that it is safe. ??? Return to your normal activities as told by your health care provider. Ask your health care provider what activities are safe for you. General instructions ??? Take vyce-nqt-cbwrmig and prescription medicines only as told by your health care provider. ??? You may resume your regular diet. ??? If the procedure was done on or near the lymph nodes under your arm (axillary lymph nodes), do not have your blood pressure taken or have blood drawn from the arm on the side of the biopsy until your health care provider says it is okay. ??? You may need to be screened for extra fluid around the lymph nodes (lymphedema). Follow instructions from your health care provider about how often you should be checked. ??? Keep all follow-up visits. This is important. Contact a health care provider if: ??? Your pain medicine is not helping. ??? You have nausea and vomiting. ??? You have redness, swelling, or more pain around your biopsy site. ??? You have fluid, blood, pus, or a bad smell coming from your incision. ??? Your incision feels warm to the touch, you have a fever, or chills. ??? You have any new bruising. Get help right away if: ??? You have pain that is getting worse, and your medicine is not helping. ??? You have vomiting that will not stop. ??? You have chest pain or trouble breathing. These symptoms may represent a serious problem that is an emergency. Do not wait to see if the symptoms will go away. Get medical help right away. Call your local emergency services (911 in the [place] Do not drive yourself to the hospital. Summary ??? After the procedure, it is common to have blue urine or stool for the next 24???48 hours. ??? Take eauz-rjl-nespfos and prescription medicines only as told by your health care provider. ??? Follow instructions from your health care provider about how to take care of your incision. Check your incision area every day for signs of infection. ??? Get help right away if you have chest pain or trouble breathing. This information is not intended to replace advice given to you by your health care provider. Make sure you discuss any questions you have with your health care provider. Document Revised: 07/10/2021 Document Reviewed: 07/10/2021 tagga Patient Education ?? 2021 [email or web address]. 04/27/2023 21:01:00 Lumpectomy, Care After Lumpectomy, Care After This sheet gives you information about how to care for yourself after your procedure. Your health care provider may also give you more specific instructions. If you have problems or questions, contact your health care provider. What can I expect after the procedure? After the procedure, it is common to have: ??? Breast swelling. ??? Breast tenderness. ??? Stiffness in your arm or shoulder. ??? A change in the shape and feel of your breast. ??? Scar tissue that feels hard to the touch in the area where the lump was removed. Follow these instructions at home: Medicines ??? Take wxxw-wik-khmeeyr and prescription medicines only as told by your health care provider. ??? If you were prescribed an antibiotic medicine, take it as told by your health care provider. Donot stop taking the antibiotic even if you start to feel better. ??? Ask your health care provider if the medicine prescribed to you: ??? Requires you to avoid driving or using heavy machinery. ??? Can cause constipation. You may need to take these actions to prevent or treat constipation: ??? Drink enough fluid to keep your urine pale yellow. ??? Take ahaw-qgs-fqrvjmy or prescription medicines. ??? Eat foods that are high in fiber, such as beans, whole grains, and fresh fruits and vegetables. ??? Limit foods that are high in fat and processed sugars, such as fried or sweet foods. Incision care ??? Follow instructions from your health care provider about how to take care of your incision. Make sure you: ??? Wash your hands with soap and water before and after you change your bandage (dressing). If soap and water are not available, use hand concert manager. ??? Change your dressing as told by your health care provider. ??? Leave stitches (sutures), skin glue, or adhesive strips in place. These skin closures may need to stay in place for 2 weeks or longer. If adhesive strip edges start to loosen and curl up, you maytrim the loose edges. Do not remove adhesive strips completely unless your health care provider tells you to do that. ??? Check your incision area every day for signs of infection. Check for: ??? More redness, swelling, or pain. ??? Fluid or blood. ??? Warmth. ??? Pus or a bad smell. ??? Keep your dressing clean and dry. ??? If you were sent home with a surgical drain in place, follow instructions from your health careprovider about emptying it. Bathing ??? Do not take baths, swim, or use a hot tub until your health care provider approves. ??? Ask your health care provider if you may take showers. You may only be allowed to take sponge baths. Activity ??? Rest as told by your health care provider. ??? Avoid sitting for a long time without moving. Get up to take short walks every 1???2 hours. This is important to improve blood flow and breathing. Ask for help if you feel weak or unsteady. ??? Return to your normal activities as told by your health care provider. Ask your health care provider what activities are safe for you. ??? Be careful to avoid any activities that could cause an injury to your arm on the side of your surgery. ??? Do not lift anything that is heavier than 10 lb (4.5 kg), or the limit that you are told, untilyour health care provider says that it is safe. Avoid lifting with the arm that is on the side of your surgery. ??? Do not carry heavy objects on your shoulder on the side of your surgery. ??? Do exercises to keep your shoulder and arm from getting stiff and swollen. Talk with your health care provider about which exercises are safe for you. General instructions ??? Wear a supportive bra as told by your health care provider. ??? Raise (elevate) your arm above the level of your heart while you are sitting or lying down. ??? Do not wear tight jewelry on your arm, wrist, or fingers on the side of your surgery. ??? Keep all follow-up visits as told by your health care provider. This is important. ??? You may need to be screened for extra fluid around the lymph nodes and swelling in the breast and arm (lymphedema). Follow instructions from your health care provider about how often you should be checked. ??? If you had any lymph nodes removed during your procedure, be sure to tell all of your health care providers. This is important information to share before you are involved in certain procedures, such as having blood tests or having your blood pressure taken. Contact a health care provider if: ??? You develop a rash. ??? You have a fever. ??? Your pain medicine is not working. ??? You have swelling, weakness, or numbness in your arm that does not improve after a few weeks. ??? You have new swelling in your breast. ??? You have any of these signs of infection: ??? More redness, swelling, or pain in your incision area. ??? Fluid or blood coming from your incision. ??? Warmth coming from the incision area. ??? Pus or a bad smell coming from your incision. Get help right away if you have: ??? Very bad pain in your breast or arm. ??? Swelling in your legs or arms. ??? Redness, warmth, or pain in your leg or arm. ??? Chest pain. ??? Difficulty breathing. Summary ??? After the procedure, it is common to have breast tenderness, swelling in your breast, and stiffness in your arm and shoulder. ??? Follow instructions from your health care provider about how to take care of your incision. ??? Do not lift anything that is heavier than 10 lb (4.5 kg), or the limit that you are told, untilyour health care provider says that it is safe. Avoid lifting with the arm that is on the side of your surgery. ??? If you had any lymph nodes removed during your procedure, be sure to tell all of your health care providers. This is important information to share before you are involved in certain procedures, such as having blood tests or having your blood pressure taken. This information is not intended to replace advice given to you by your health care provider. Make sure you discuss any questions you have with your health care provider. Document Revised: 04/01/2020 Document Reviewed: 04/01/2020 tagga Patient Education ?? 2021 [employer]. Follow Up Care 04/09/2023 08:45:02 With:Hossein Harrison Address: [address] [facility] [place] [address]- [employer] (1) When:05/03/2023 Comments:Call office for any questions or concerns With:Mathew Vidal Address: [address] [address] [facility] (1) When:05/10/2023 Comments:Call office for any questions or concerns Surgical operation note * Mathew Vidal MD: PERFORM, SIGN, VERIFY Event Display: Operative Report Authored Date: [id number] Patient: EULOGIO MORENO Age: 52 years Sex: Female : 1970 Associated Diagnoses: None Author: Mathew Vidal MD Postoperative Information Date/ Time: 04/27/2023 19:25:00 Preoperative Diagnosis: Preop Dx (ST) SN - GCD - Preop Diagnosis: RIGHT BREAST WIRE LOC X 2 AND CLIP (04/27/23 12:58:42). Postoperative Diagnosis: Postop Dx (ST) SN - GCD - Post Op Diagnosis: RIGHT BREAST WIRE LOC X 2 AND CLIP (04/27/23 12:58:42). Procedure: Procedure (ST) SN - SgP - Procedure: BCC Wire Loc (04/27/23) SN - SgP - Modifiers: Breast (04/27/23). Performed by: Primary Surgeon (ST) Surgeon - Primary: Mami KAMARA, Yoav Hernandez Video Control Engineer: Physician's Video Control Engineer (ST) No Public Policy Analyst Found . Anesthetic Used: Anesthesia Type (ST) SN - SgP - Anesthesia Type: 0-Local (04/27/23). Findings: INDICATIONS: The patient is a 52 year old with a right breast cancer. After extensive discussion, her preference was a partial mastectomy/lumpectomy. She understood rationale for sentinel node biopsyand wanted to proceed. She had additional lesion also had to be excised so additional wire was placed there. Because of the size of this entire lumpectomy Dr. Harrison was to perform a mastopexy left in oncoplastic reconstruction on the right and reduction for symmetry on the left. DESCRIPTION OF PROCEDURE: Breast was Prepped and draped in sterile fashion. Mammograms were placed on the overhead. Local was infiltrated and incision was made, sharply dissected through the skin andsubcu down around the reinforced segment of the wire left breast. Excision of mass in the area of concern was performed. Margin markers were placed. Specimen radiograph indicated the area was nicely included. Sent this for permanent pathologic evaluation and confirmed it with the radiologist. I Established hemostasis in biopsy cavity, irrigated, suctioned out irrigation fluid. This was the anterior lesion. We felt had been completely removed. At this point I began dissecting around the additional wire which really included much of the upper inner quadrant of the breast. Widely excised tissue around this place margin markers specimen radiograph was performed. Pre K Teacher felt we were perhaps close at single margin on the medial side. Additionally I had concerns about the cranial and deep margin thyroid excise the cranial margin and it should be noted the deep margin was clear because wetaken fascia at this point an were down to pectoralis muscle. This plan establish hemostasis turnedmy attention axilla. I turned my attention to the axilla. Local was infiltrated and incision was made. Sharp dissected through the skin and subcu in the axilla. Identified the sentinel node times 2. Sent for permanent pathologic evaluation. Clips placed on lymphatics, hemostasis was obtained in the axilla. Dr. Harrison plastic surgeon was informed closure final needle sponge and instrument count.Estimated blood loss ofmy portion of the procedure was less than 50 mL. . Specimens Removed: Specimens (ST) SN - CS - Specimen Description: Left, Breast (04/27/23 18:34:43) SN - CS - Comments: Right Lumpectomy (04/27/23 19:09:18) SN - CS - Comments: [place] Nodes Right (04/27/23 19:09:18) SN - CS - Comments: Medial Reexcision Stitch Specimen Side (04/27/23 19:06:10) SN - CS - Comments: Cranial Reexcision Stitch Specimen Side (04/27/23 19:06:10) SN - CS - Comments: Small Anterior Lesion Right Breast (04/27/23 18:34:43). Estimated Blood Loss: 50 ml. Complications: None. Description of Techniques: Standard. Implants/Grafts: Implant (ST) No Implants/Grafts Used. Final Count Verification: SN - FCV (ST) No final counts done. Electronically signed by:Mathew Vidal MD 04/27/23 19:30 Radiology * Yoav Bolaños MD: PERFORM, TRANSCRIBE, VERIFY, VERIFY Event Display: Report Authored Date: Note * Yoav Bolaños MD: PERFORM, TRANSCRIBE, VERIFY, VERIFY Event Display: Powerscribe Read Authored Date: PROCEDURE: Ultrasound-guided right breast wire localization x2, followed by unilateral digital mammogram of the right breast. HISTORY: 52-year-old female. 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 Patient had additional suspicious mass identified in the more anterior upper inner right breast on staging MRI, corresponding with a 1.0 cm suspicious hypoechoic mass identified in the right breast 1:00 2 cm from nipple on ultrasound. Ultrasound- guided biopsy of the mass in the 1:00-2 cm position was not performed upon request of the patient's breast surgeon. Rather, surgeon requested ultrasound- guided localization of the additional mass in the 1:00-2 cmposition. Because this mass has not yet been previously biopsied, and due to lack of definitive mammographic correlate, the decision was made to place a biopsy marking clip in the additional mass in the 1:00-2 cm position prior to ultrasound-guided localization to ensure accuracy of excision on pending surgical specimen radiograph. This was discussed with Dr. Vidal, and he is agreeable to this p hannah. MEDICATIONS: 6 cc buffered lidocaine SC; 10 cc buffered lidocaine with epinephrine SC. CONSENT: Obtained after the explanation of risks, benefits, and alternatives and placed in the chart. Timeout was performed. PROCEDURE DETAILS: The patient was placed in the supine position. Ultrasound was used to localize the mass in the 1:00-2 cm position. The breast was prepped and draped in a sterile manner. The skin was anesthetized with lidocaine. The skin and deep tissues were anesthetized with buffered lidocaine.Under ultrasound guidance a biopsy marking clip was advanced from medial approach to the level of the targeted mass; the biopsy marking clip was deployed within the mass. Ultrasound guidance was thenused to place a 5 cm 20G needle with the tip just beyond the lesion. A localization wire was placedthrough the needle, passing through the lesion, with the hooked tip just beyond. The needle was removed. The patient was then placed in the supine position. Ultrasound was used to localize the previously biopsied mass/site of biopsy-proven malignancy at the 1:00-6 cm position in the right breast. The previously placed biopsy marking clip was noted to have migrated anterior to the previously biopsied mass. The overlying skin was anesthetized with lidocaine. The skin and deep tissues were anesthetizedwith buffered lidocaine. Ultrasound guidance was used to place a second 5 cm 20G needle with the tip just beyond the lesion. A second localization wire was placed through the needle, passing through the lesion, with the hooked tip just beyond. The needle was removed, and the areas were both cleansed and bandaged, securing the localization wires. The patient tolerated the procedure well and there were no complications. Postprocedure 2 view digital mammogram demonstrates accurate placement of the localization wires. The biopsy marking clip placed at time of ultrasound-guided biopsy on 03/31/2023 is present anterior to the previously biopsied mass in the 1:00-6 cm position, along the anterior margin of the associated architectural distortion. Annotated postprocedure images will be available to the patient's surgeon in the operating room. IMPRESSION: Successful right breast wire localization x2. Electronically signed by: Dr Yoav Bolaños 04/27/2023 2:14 PM Radiologist Yoav Bolaños MD Signed 04/27/23 14:14:57 (Electronic Signature) Counter Pocket Sewer RLO Technologist Amy Lacy Patient Care team information Care Team Related Persons Name: LAUREANO MOY
--- OUTSIDE RECORDS SUMMARY | 2023-10-18 06:18 | XMS_ITS | Continuity of Care Document ---
Author Name Unknown Organization [facility] Address [address] [place] [address]- Care Team Providers Care Pathology Assistant Name Role Phone Ifrah Mara HAHN Primary Care Physician Encounter [facility] Number [id number] Date(s): 05/20/23 - 05/21/23 [facility] [address] [place] [address]- [phone] Encounter Diagnosis Breast cancer, right(Discharge Diagnosis) - 05/21/23 Discharge Disposition: .Discharge to Home (Routine) Attending Physician: Mathew Vidal MD Admitting Physician: Mathew Vidal MD Allergies, Adverse Reactions, Alerts Substance Reaction Severity Status metroNIDAZOLE Vomiting Severe Active Assessment and Plan Extracted from: Title:Instructions to Patients Author:Lia Hatfield RN Date:05/21/23 [facility] Log for 2 WILLIAMS Drains Date Drains 7am 2pm 8pm Total WILLIAMS 1 JP2 WILLIAMS 1 JP2 WILLIAMS 1 JP2 WILLIAMS 1 JP2 WILLIAMS 1 JP2 WILLIAMS 1 JP2 WILLIAMS 1 JP2 WILLIAMS 1 JP2 WILLIAMS 1 JP2 July 2021 Surgical Drain Home Care Surgical drains are used to remove extra fluid that normally builds up in a surgical wound after surgery. A surgical drain helps to heal a surgical wound. Different kinds of surgical drains include: ? ? Active drains. These drains use suction to pull drainage away from the surgical wound. Drainage flows through a tube to a container outside of the body. With these drains, you need to keep the bulb or the drainage container flat (compressed) at all times, except while you empty it. Flattening the bulb or container creates suction. ? ? Passive drains. These drains allow fluid to drain naturally, by gravity. Drainage flows through a tube to a bandage (dressing) or a container outside of the body. Passive drains do not need to be emptied. A drain is placed during surgery. Right after surgery, drainage is usually bright red and a little thicker than water. The drainage may gradually turn yellow or pink and become thinner. It is likely that your health care provider will remove the drain when the drainage stops or when the amount decreases to 1? 2 Tbsp (15? 30 mL) during a 24-hour period. Supplies needed: ? ? Tape. ? ? Germ-free cleaning solution (sterile saline). ? ? Cotton swabs. ? ? Split gauze drain sponge: 4 x 4 inches (10 x 10 cm). ? ? Gauze square: 4 x 4 inches (10 x 10 cm). How to care for your surgical drain Care for your drain as told by your health care provider. This is important to help prevent infection. If your drain is placed at your back, or any other ejik-yj-vnhyv area, ask another person to assist you in performing the following tasks: General care ? ? Keep the skin around the drain dry and covered with a dressing at all times. ? ? Check your drain area every day for signs of infection. Check for: ? ? Redness, swelling, or pain. ? ? Pus or a bad smell. ? ? Cloudy drainage. ? ? Tenderness or pressure at the drain exit site. Changing the dressing Follow instructions from your health care provider about how to change your dressing. Change your dressing at least once a day. Change it more often if needed to keep the dressing dry. Make sure you: 1. Gather your supplies. 2. Wash your hands with soap and water before you change your dressing. If soap and water are not available, use hand sock knitting machine operator. 3. Remove the old dressing. Avoid using scissors to do that. 4. Wash your hands with soap and water again after removing the old dressing. 5. Use sterile saline to clean your skin around the drain. You may need to use a cotton swab to clean the skin. 6. Place the tube through the slit in a drain sponge. Place the drain sponge so that it covers your wound. 7. Place the gauze square or another drain sponge on top of the drain sponge that is on the wound. Make sure the tube is between those layers. 8. Tape the dressing to your skin. 9. Tape the drainage tube to your skin 1? 2 inches (2.5? 5 cm) below the place where the tube enters your body. Taping keeps the tube from pulling on any stitches (sutures) that you have. 10. Wash your hands with soap and water. 11. Write down the color of your drainage and how often you change your dressing. How to empty your active drain 1. Make sure that you have a measuring cup that you can empty your drainage into. 2. Wash your hands with soap and water. If soap and water are not available, use hand sock knitting machine operator. 3. Loosen any pins or clips that hold the tube in place. 4. If your health care provider tells you to strip the tube to prevent clots and tube blockages: ? ? Hold the tube at the skin with one hand. Use your other hand to pinch the tubing with your thumb and first finger. ? ? Gently move your fingers down the tube while squeezing very lightly. This clears any drainage, clots, or tissue from the tube. ? ? You may need to do this several times each day to keep the tube clear. Do not pull on the tube. 5. Open the bulb cap or the drain plug. Do not touch the inside of the cap or the bottom of the plug. 6. Turn the device upside down and gently squeeze. 7. Empty all of the drainage into the measuring cup. 8. Compress the bulb or the container and replace the cap or the plug. To compress the bulb or the container, squeeze it firmly in the middle while you close the cap or plug the container. 9. Write down the amount of drainage that you have in each 24-hour period. If you have less than 2 Tbsp (30 mL) of drainage during 24 hours, contact your health care provider. 10. Flush the drainage down the toilet. 11. Wash your hands with soap and water. Contact a health care provider if: ? ? You have redness, swelling, or pain around your drain area. ? ? You have pus or a bad smell coming from your drain area. ? ? You have a fever or chills. ? ? The skin around your drain is warm to the touch. ? ? The amount of drainage that you have is increasing instead of decreasing. ? ? You have drainage that is cloudy. ? ? There is a sudden stop or a sudden decrease in the amount of drainage that you have. ? ? Your drain tube falls out. ? ? Your active drain does not stay compressed after you empty it. Summary ? ? Surgical drains are used to remove extra fluid that normally builds up in a surgical wound after surgery. ? ? Different kinds of surgical drains include active drains and passive drains. Active drains use suction to pull drainage away from the surgical wound, and passive drains allow fluid to drain naturally. ? ? It is important to care for your drain to prevent infection. If your drain is placed at your back, or any other blxl-na-rtgod area, ask another person to assist you. ? ? Contact your health care provider if you have redness, swelling, or pain around your drain area. This information is not intended to replace advice given to you by your health care provider. Make sure you discuss any questions you have with your health care provider. Document Revised: 11/01/2019 Document Reviewed: 11/01/2019 [employer] Patient Education ?? 2021 [employer] Total or Modified Radical Mastectomy, Care After This sheet gives you information about how to care for yourself after your procedure. Your health care provider may also give you more specific instructions. If you have problems or questions, contact your health care provider. What can I expect after the procedure? After the procedure, it is common to have: ? ? Pain. ? ? Numbness. ? ? Stiffness in the arm or shoulder. ? ? Feelings of stress, sadness, or depression. If the lymph nodes under your arm were removed, you may have arm swelling, weakness, or numbness on the same side of your body as your surgery. Follow these instructions at home: Incision care ? ? Follow instructions from your health care provider about how to take care of your incision. Make sure you: ? ? Wash your hands with soap and water before you change your bandage (dressing). If soap and water are not available, use hand sock knitting machine operator. ? ? Change your dressing as told [...] Pus or a bad smell. ? ? If you were sent home [...] to take sponge baths. Activity ? ? Return to your normal activities as told by your health care provider. Ask your health care provider what activities are safe for you. ? ? Avoid activities that take a lot of effort. ? ? Be careful to avoid any activities that could cause an injury to your arm on the side of your surgery. ? ? Do not lift anything that is heavier than 10 lb (4.5 kg), or the limit that you are told, until your health care provider says that it is safe. ? ? Avoid lifting with the arm on the side of your surgery. ? ? Do not carry heavy objects on your shoulder. ? ? After your drain is removed, do exercises to prevent stiffness and swelling in your arm. Talk with your health care provider about which exercises are safe for you. General instructions ? ? Take lili-vcm-alkiryd and prescription medicines only as told by your health care provider. ? ? You may eat what you usually do. ? ? Keep your arm raised (elevated) above the level of your heart when you are sitting or lying down. ? ? Do not wear tight jewelry on your arm, wrist, or fingers on the side of your surgery. ? ? You may be given a tight sleeve (compression bandage) to wear over your arm on the side of your surgery. Wear this sleeve as told by your health care provider. ? ? Ask your health care provider when you can start wearing a bra or using a breast prosthesis. ? ? Before you are involved in certain procedures such as giving blood or having your blood pressure checked, tell all your health care providers if lymph nodes under your arm were removed. This is important information. Follow-up ? ? Keep all follow-up visits as told by your health care provider. This is important. ? ? Get checked for extra fluid around your lymph nodes (lymphedema) as often as told by your health care provider. Contact a health care provider if: ? ? You have a fever. ? ? Your pain medicine is not working. ? ? Your arm swelling, weakness, or numbness has not improved after a few weeks. ? ? You have new swelling in your breast area or arm. ? ? You have redness, swelling, or more pain in your incision area. ? ? You have fluid or blood coming from your incision. ? ? Your incision feels warm to the touch. ? ? You have pus or a bad smell coming from your incision. Get help right away if: ? ? You have very bad pain in your breast area or arm. ? ? You have chest pain. ? ? You have difficulty breathing. Summary ? ? Follow instructions from your health care provider about how to take care of your incision. Check your incision area every day for signs of infection. ? ? Ask your health care provider what activities are safe for you. ? ? Keep all follow-up visits as told by your health care provider. This is important. ? ? Make sure you know which symptoms should cause you to contact your health care provider or to get help right away. This information is not intended to replace advice given to you by your health care provider. Make sure you discuss any questions you have with your health care provider. Document Revised: 04/08/2021 Document Reviewed: 04/18/2021 [employer] Patient Education ?? 2021 [employer]. Medication Leaflets: Accessing??[employer]??Express??Patient??Portal Access medications, test results, radiology reports, and more through [email or web address] secure patient portal. Please be patient if waiting on lab results, as these can take several days to process. [place] online at??[email or web address]??Use your community medical record number (CMRN) located below to verify your identity on the Self-Enrollment form.We also offer the ability for you to securely connect other health management apps to your health record. See the [facility] Connection link on the website above for more details. Watch [employer] Patient Education Videos and Access Resources anytime online! Visit [email or web address] Extracted from: Title:Instructions to Patients Author:Rosalinda Lancaster RN Date:05/20/23 Obstetrics and Gynecology Total or Modified Radical Mastectomy, Care After This sheet gives you information about how to care for yourself after your procedure. Your health care provider may also give you more specific instructions. If you have problems or questions, contact your health care provider. What can I expect after the procedure? After the procedure, it is common to have: ? ? Pain. ? ? Numbness. ? ? Stiffness in the arm or shoulder. ? ? Feelings of stress, sadness, or depression. If the lymph nodes under your arm were removed, you may have arm swelling, weakness, or numbness on the same side of your body as your surgery. Follow these instructions at home: Incision care ? ? Follow instructions from your health care provider about how to take care of your incision. Make sure you: ? ? Wash your hands with soap and water before you change your bandage (dressing). If soap and water are not available, use hand sock knitting machine operator. ? ? Change your dressing as told [...] Pus or a bad smell. ? ? If you were sent home [...] to take sponge baths. Activity ? ? Return to your normal activities as told by your health care provider. Ask your health care provider what activities are safe for you. ? ? Avoid activities that take a lot of effort. ? ? Be careful to avoid any activities that could cause an injury to your arm on the side of your surgery. ? ? Do not lift anything that is heavier than 10 lb (4.5 kg), or the limit that you are told, until your health care provider says that it is safe. ? ? Avoid lifting with the arm on the side of your surgery. ? ? Do not carry heavy objects on your shoulder. ? ? After your drain is removed, do exercises to prevent stiffness and swelling in your arm. Talk with your health care provider about which exercises are safe for you. General instructions ? ? Take eqim-sza-szriabl and prescription medicines only as told by your health care provider. ? ? You may eat what you usually do. ? ? Keep your arm raised (elevated) above the level of your heart when you are sitting or lying down. ? ? Do not wear tight jewelry on your arm, wrist, or fingers on the side of your surgery. ? ? You may be given a tight sleeve (compression bandage) to wear over your arm on the side of your surgery. Wear this sleeve as told by your health care provider. ? ? Ask your health care provider when you can start wearing a bra or using a breast prosthesis. ? ? Before you are involved in certain procedures such as giving blood or having your blood pressure checked, tell all your health care providers if lymph nodes under your arm were removed. This is important information. Follow-up ? ? Keep all follow-up visits as told by your health care provider. This is important. ? ? Get checked for extra fluid around your lymph nodes (lymphedema) as often as told by your health care provider. Contact a health care provider if: ? ? You have a fever. ? ? Your pain medicine is not working. ? ? Your arm swelling, weakness, or numbness has not improved after a few weeks. ? ? You have new swelling in your breast area or arm. ? ? You have redness, swelling, or more pain in your incision area. ? ? You have fluid or blood coming from your incision. ? ? Your incision feels warm to the touch. ? ? You have pus or a bad smell coming from your incision. Get help right away if: ? ? You have very bad pain in your breast area or arm. ? ? You have chest pain. ? ? You have difficulty breathing. Summary ? ? Follow instructions from your health care provider about how to take care of your incision. Check your incision area every day for signs of infection. ? ? Ask your health care provider what activities are safe for you. ? ? Keep all follow-up visits as told by your health care provider. This is important. ? ? Make sure you know which symptoms should cause you to contact your health care provider or to get help right away. This information is not intended to replace advice given to you by your health care provider. Make sure you discuss any questions you have with your health care provider. Document Revised: 04/08/2021 Document Reviewed: 04/18/2021 [employer] Patient Education ?? 2021 [employer]. Pharmacology General Anesthesia, Adult, Care After This [...] are safe for you. ? ? Take jniu-mmi-frmtajk and prescription medicines only as told by [...] provider. Document Revised: 06/12/2021 Document Reviewed: 01/09/2021 [employer] Patient Education ?? 2021 [employer]. Future Appointments Appointment Date:05/25/2023 10:15:00 AM Scheduled Provider:Hossein Harrison MD Location:[facility] Appointment Type:Hospital Follow Up (Established) Appointment Date:05/31/2023 11:15:00 AM Scheduled Provider:[facility] Follow Up (Established) Appointment Date:05/31/2023 01:30:00 PM Scheduled Provider:Mathew Vidal MD Location: Breast Surg Appointment Type:Established Patient Medications Aspir 81 81 mg, By mouth, Daily, [...] 40 mg = 1 tab, By mouth, at bedtime, # 30 tab, Refill(s) 0 Start Date: 04/07/23 Status: Ordered propranolol 40 mg oral tablet 40 mg = 1 tab, By mouth, BID, # 60 tab, Refill(s) 0 Start Date: 04/07/23 Status: Ordered Problem List Condition Confirmation Course Effective Dates Status Health atus Informant 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 Active Procedures Procedure Date Related Diagnosis Body Site Status MAST MODF RAD W/AX LYMPH NOD W/WO PECT/AMAURY MIN 05/20/23 Completed TISSUE SOLAR THERMAL TECHNICIAN PLACEMENT BR EAST RECONSTRUCTION 05/20/23 Completed right lumpectomy 2022 Complete d Dental surgery 2021 Completed Hysterectomy 2011 Completed Results Laboratory List Name Date CBC-d 05/21/23 zCBC Automated Diff 05/21/23 CBC-d 05/20/23 zCBC Automated Diff 05/20/23 Most recent to oldest [Reference Range]: 1 2 WBC [4.8-10.8 Thous/mm3] 12.4 Thous/mm3 *HI* (05/21/23 5:13 AM) 12.2 Thous/mm3 *HI* (05/20/23 11:01 PM) Hct [37.0-47.0 %] 23.2 % *LOW* (05/21/23 5:13 AM) 24.8 % *LOW* (05/20/23 11:01 PM) Hgb [12.0-16.0 g/dL] 7.7 g/dL *LOW* (05/21/23 5:13 AM) 8.3 g/dL *LOW* (05/20/23: PM) RBC [4.20-5.40 Million/mm3] 2.45 Million /mm3 *LOW* (05/21/23 AM) 2.55 Million/mm3 *LOW* (05/20/23 PM) MCV [80.0-100.0 fl] 94.7 fl (05/21/23: AM) 97.3 fl (05/20/23 PM) MCH [26.0-34.0 pg] 31.4 pg (05/21/23:13 AM) 32.5 pg (05/20/23 PM) MCHC [31.0-36.5 g/dL] 33.2 g/dL (05/21/23 AM) 33.5 g/dL (05/20/23 PM) RDW [10.4-14.4 %] 12.0 % (05/21/23 AM) 12.2 % (05/20/23 PM) Platelets [130-440 Thous/mm3] 277 Thous/ mm3 (05/21/23:13 AM) 270 Thous/mm3 (05/20/23 PM) MPV [9.4-12.4 fl] 9.1 fl *LOW* (05/21/23: AM) 9.2 fl *LOW* (05/20/23 PM) AutoNeutrophil [43.0-78.0 %] 80.9 % *HI* (05/21/23: AM) 87.9 % *HI* (05/20/23 PM) AutoLymphs [20.0-40.0 %] 8.6 % *LOW* (05/21/23:13 AM) 6.2 % *LOW* (05/20/23 PM) AutoMono [2.0-10.0 %] 9.4 % (05/21/23 5:13 AM) 5.0 % (05/20/23 PM) AutoEo [0.0-7.0 %] 0.1 % (05/21/23:13 AM) 0.0 % (05/20/23: PM) AbsNeut [2.0-8.0 Thous/mm3] 10.0 Thous/m m3 *HI* (05/21/23:13 AM) 10.7 Thous/mm3 *HI* (05/20/23 PM) AbsLymph [1.0-4.0 Thous/mm3] 1.1 Thous/m m3 (05/21/23 5:13 AM) 0.8 Thous/mm3 *LOW* (05/20/23 PM) AbsMono [0.1-1.0 Thous/mm3] 1.2 Thous/mm 3 *HI* (05/21/23:13 AM) 0.6 Thous/mm3 (05/20/23 PM) AbsEo [0.0-0.5 Thous/mm3] 0.0 Thous/mm3 (05/21/23:13 AM) 0.0 Thous/mm3 (05/20/23 PM) AbsBaso [0.0-0.2 Thous/mm3] 0.1 Thous/mm 3 (05/21/23 5:13 AM) 0.0 Thous/mm3 (05/20/23 PM) AutoBaso [0.0-2.5 %] 0.5 % (05/21/23:13 AM) 0.4 % (05/20/23 PM) Imm. Grans % [0-5 %] <5 % (05/21/23 5:13 AM) <5 % (05/20/23: PM) Imm. Grans # [0.0-0.5 Thous/mm3] <0.5 Th ous/mm3 (05/21/23 5:13 AM) <0.5 Thous/mm3 (05/20/23:01 PM) ANC-AbsNeutCount 10.0 Thous/mm3 *NA* (05/21/23 5:13 AM) 10.7 Thous/mm3 *NA* (05/20/23:01 PM) Vital Signs Most recent to oldest [Reference Range]: 1 2 3 Blood Pressure 110/73 (05/21/23 12:20 PM) Blood Pressure 128/45mmHg (05/21/23 12:15 PM) 103/72mmHg (05/21/23 11:09 AM) Height (inches) (Clinical) 65 in (05/21/23 12:16 AM) 65 in (05/20/23 7:35 PM) 65 in (05/20/23 2:00 PM) Weight (kg) (Clinical) 53.6 kg (05/21/23 12:16 AM) 53.6 kg (05/20/23 2:00 PM) BMI (Clinical) 19.6 kg/m2 (05/21/23 12:16 AM) 0 kg/m2 (05/20/23 7:35 PM) Social History Social History Type Response Smoking Status Never smoker; Smokel ess tobacco use: Never; Has the patient smoked in the last 365 days, even once? No entered on: 04/09/23 Sex Female Implantable Device List Procedure Provider Procedure Date Device Type Site Unknown Unknown 05/20/23 Unknown Breast, Right Device Identifier Serial Number Lot or Batch Number Manufacturing Date Expiration Date Distinct Identification Code MRI Safety Implantable Status Assigning Authority Unknown [id number] Unknown 02/25/27 Unknown Unknown Active Unknown Procedure Provider Procedure Date Device Type Site Unknown Unknown 04/27/23 Unknown Breast, Right Device Identifier Serial Number Lot or Batch Number Manufacturing Date Expiration Date Distinct Identification Code MRI Safety Implantable Status Assigning Authority Unknown Unknown [id number] Unknown 04/06/25 Unknown Unknown Active Unknown Procedure Provider Procedure Date Device Type Site BCC Biopsy Unknown 03/31/23 Unknown Unknown Device Identifier Serial Number Lot or Batch Number Manufacturing Date Expiration Date Distinct Identification Code MRI Safety Implantable Status Assigning Authority [id number] Unknown [id number] Unknown 03/09/25 Unknown MR [employer] Active GS1 Hospital Discharge Instructions Patient Education 05/21/2023 13:13:26 Log for 2 WILLIAMS Drains 2020 (CUSTOM) Log for 2 WILLIAMS Drains Date Drains 7am 2pm 8pm Total WILLIAMS 1 JP2 WILLIAMS 1 JP2 WILLIAMS 1 JP2 WILLIAMS 1 JP2 IWLLIAMS 1 JP2 WILLIAMS 1 JP2 WILLIAMS 1 JP2 WILLIAMS 1 JP2 WILLIAMS 1 JP2 July 2021 05/21/2023 13:13:26 Surgical Drain Home Care Surgical Drain Home Care Surgical drains are used to remove extra fluid that normally builds up in a surgical wound after surgery. A surgical drain helps to heal a surgical wound. Different kinds of surgical drains include: ??? Active drains. These drains use suction to pull drainage away from the surgical wound. Drainageflows through a tube to a container outside of the body. With these drains, you need to keep the bulb or the drainage container flat (compressed) at all times, except while you empty it. Flattening the bulb or container creates suction. ??? Passive drains. These drains allow fluid to drain naturally, by gravity. Drainage flows througha tube to a bandage (dressing) or a container outside of the body. Passive drains do not need to beemptied. A drain is placed during surgery. Right after surgery, drainage is usually bright red and a little thicker than water. The drainage may gradually turn yellow or pink and become thinner. It is likely that your health care provider will remove the drain when the drainage stops or when the amount decreases to 1???2 Tbsp (15???30 mL) during a 24-hour period. Supplies needed: ??? Tape. ??? Germ-free cleaning solution (sterile saline). ??? Cotton swabs. ??? Split gauze drain sponge: 4 x 4 inches (10 x 10 cm). ??? Gauze square: 4 x 4 inches (10 x 10 cm). How to care for your surgical drain Care for your drain as told by your health care provider. This is important to help prevent infection. If your drain is placed at your back, or any other clmh-xj-tafth area, ask another person to assist you in performing the following tasks: General care ??? Keep the skin around the drain dry and covered with a dressing at all times. ??? Check your drain area every day for signs of infection. Check for: ??? Redness, swelling, or pain. ??? Pus or a bad smell. ??? Cloudy drainage. ??? Tenderness or pressure at the drain exit site. Changing the dressing Follow instructions from your health care provider about how to change your dressing. Change your dressing at least once a day. Change it more often if needed to keep the dressing dry. Make sure you: 1. Gather your supplies. 2. Wash your hands with soap and water before you change your dressing. If soap and water are not available, use hand sock knitting machine operator. 3. Remove the old dressing. Avoid using scissors to do that. 4. Wash your hands with soap and water again after removing the old dressing. 5. Use sterile saline to clean your skin around the drain. You may need to use a cotton swab to clean the skin. 6. Place the tube through the slit in a drain sponge. Place the drain sponge so that it covers yourwound. 7. Place the gauze square or another drain sponge on top of the drain sponge that is on the wound. Make sure the tube is between those layers. 8. Tape the dressing to your skin. 9. Tape the drainage tube to your skin 1???2 inches (2.5???5 cm) below the place where the tube enters your body. Taping keeps the tube from pulling on any stitches (sutures) that you have. 10. Wash your hands with soap and water. 11. Write down the color of your drainage and how often you change your dressing. How to empty your active drain 1. Make sure that you have a measuring cup that you can empty your drainage into. 2. Wash your hands with soap and water. If soap and water are not available, use hand sock knitting machine operator. 3. Loosen any pins or clips that hold the tube in place. 4. If your health care provider tells you to strip the tube to prevent clots and tube blockages: ??? Hold the tube at the skin with one hand. Use your other hand to pinch the tubing with your thumb and first finger. ??? Gently move your fingers down the tube while squeezing very lightly. This clears any drainage, clots, or tissue from the tube. ??? You may need to do this several times each day to keep the tube clear. Do not pull on the tube. 5. Open the bulb cap or the drain plug. Do not touch the inside of the cap or the bottom of the plug. 6. Turn the device upside down and gently squeeze. 7. Empty all of the drainage into the measuring cup. 8. Compress the bulb or the container and replace the cap or the plug. To compress the bulb or the container, squeeze it firmly in the middle while you close the cap or plug the container. 9. Write down the amount of drainage that you have in each 24-hour period. If you have less than 2 Tbsp (30 mL) of drainage during 24 hours, contact your health care provider. 10. Flush the drainage down the toilet. 11. Wash your hands with soap and water. Contact a health care provider if: ??? You have redness, swelling, or pain around your drain area. ??? You have pus or a bad smell coming from your drain area. ??? You have a fever or chills. ??? The skin around your drain is warm to the touch. ??? The amount of drainage that you have is increasing instead of decreasing. ??? You have drainage that is cloudy. ??? There is a sudden stop or a sudden decrease in the amount of drainage that you have. ??? Your drain tube falls out. ??? Your active drain does not stay compressed after you empty it. Summary ??? Surgical drains are used to remove extra fluid that normally builds up in a surgical wound after surgery. ??? Different kinds of surgical drains include active drains and passive drains. Active drains use suction to pull drainage away from the surgical wound, and passive drains allow fluid to drain naturally. ??? It is important to care for your drain to prevent infection. If your drain is placed at your back, or any other xuae-kd-nktzo area, ask another person to assist you. ??? Contact your health care provider if you have redness, swelling, or pain around your drain area. This information is not intended to replace advice given to you by your health care provider. Make sure you discuss any questions you have with your health care provider. Document Revised: 11/01/2019 Document Reviewed: 11/01/2019 [employer] Patient Education ?? 2021 [employer]. 05/20/2023 20:34:56 Total or Modified Radical Mastectomy, Care After Total or Modified Radical Mastectomy, Care After This sheet gives you information about how to care for yourself after your procedure. Your health care provider may also give you more specific instructions. If you have problems or questions, contact your health care provider. What can I expect after the procedure? After the procedure, it is common to have: ??? Pain. ??? Numbness. ??? Stiffness in the arm or shoulder. ??? Feelings of stress, sadness, or depression. If the lymph nodes under your arm were removed, you may have arm swelling, weakness, or numbness onthe same side of your body as your surgery. Follow these instructions at home: Incision care ??? Follow instructions from your health care provider about how to take care of your incision. Make sure you: ??? Wash your hands with soap and water before you change your bandage (dressing). If soap and water are not available, use hand sock knitting machine operator. ??? Change your dressing as told by [...] ??? Pus or a bad smell. ??? If you were sent home with a surgical drain in place, follow instructions from your health careprovider about emptying it. Bathing ??? Do not take baths, swim, or use a hot tub until your health care provider approves. Ask your health care provider if you may take showers. You may only be allowed to take sponge baths. Activity ??? Return to your normal activities as told by your health care provider. Ask your health care provider what activities are safe for you. ??? Avoid activities that take a lot of effort. ??? Be careful to avoid any activities that could cause an injury to your arm on the side of your surgery. ??? Do not lift anything that is heavier than 10 lb (4.5 kg), or the limit that you are told, untilyour health care provider says that it is safe. ??? Avoid lifting with the arm on the side of your surgery. ??? Do not carry heavy objects on your shoulder. ??? After your drain is removed, do exercises to prevent stiffness and swelling in your arm. Talk with your health care provider about which exercises are safe for you. General instructions ??? Take yhry-nim-phvjngc and prescription medicines only as told by your health care provider. ??? You may eat what you usually do. ??? Keep your arm raised (elevated) above the level of your heart when you are sitting or lying down. ??? Do not wear tight jewelry on your arm, wrist, or fingers on the side of your surgery. ??? You may be given a tight sleeve (compression bandage) to wear over your arm on the side of yoursurgery. Wear this sleeve as told by your health care provider. ??? Ask your health care provider when you can start wearing a bra or using a breast prosthesis. ??? Before you are involved in certain procedures such as giving blood or having your blood pressure checked, tell all your health care providers if lymph nodes under your arm were removed. This is important information. Follow-up ??? Keep all follow-up visits as told by your health care provider. This is important. ??? Get checked for extra fluid around your lymph nodes (lymphedema) as often as told by your health care provider. Contact a health care provider if: ??? You have a fever. ??? Your pain medicine is not working. ??? Your arm swelling, weakness, or numbness has not improved after a few weeks. ??? You have new swelling in your breast area or arm. ??? You have redness, swelling, or more pain in your incision area. ??? You have fluid or blood coming from your incision. ??? Your incision feels warm to the touch. ??? You have pus or a bad smell coming from your incision. Get help right away if: ??? You have very bad pain in your breast area or arm. ??? You have chest pain. ??? You have difficulty breathing. Summary ??? Follow instructions from your health care provider about how to take care of your incision. Check your incision area every day for signs of infection. ??? Ask your health care provider what activities are safe for you. ??? Keep all follow-up visits as told by your health care provider. This is important. ??? Make sure you know which symptoms should cause you to contact your health care provider or to get help right away. This information is not intended to replace advice given to you by your health care provider. Make sure you discuss any questions you have with your health care provider. Document Revised: 04/08/2021 Document Reviewed: 04/18/2021 [employer] Patient Education ?? 2021 [employer]. Follow Up Care 05/13/2023 11:18:08 With:Mathew Vidal Address: [address] [place] [address]- Business (1) When:05/31/2023 With:Hossein Harrison Address: [address] [place] [address]- Business (1) When:05/31/2023 11:15:00 With:Hossein Harrison Address: [address] [place] [address]- Business (1) When:05/25/2023 10:15:00 Progress note * Mathew Vidal MD: PERFORM, SIGN, VERIFY Event Display: Progress Notes Authored Date: [id number] Patient: EULOGIO MORENO Age: 52 years Sex: Female : 1970 Associated Diagnoses: None Author: Mathew Vidal MD POD #1 following right total mastectomy, tissue amusement park worker placement and axillary dissection. Patient is resting comfortably in bed. She did have a bit of an orthostatic episode earlier this morning. She is doing okay now. Blood pressure is soft for her normal. She has had nothing to eat for 36 hours. Afebrile. H&H are stable No fever or chills No chest pain, palpitations or peripheral edema No cough, wheeze or shortness of breath Right chest wall discomfort, expected VSS, Afeb Alert an oriented, no acute distress RRR Right chest wall incision is clean, dry and intact. No hematoma. Drain with expected, moderate serosanguineous output. Nipple is pink and viable. Good capillary refill Labs reviewed I/P: This is a 52-year-old with right breast cancer. She is day 1 status post right total mastectomy, axillary dissection and tissue amusement park worker placement. She is progressing as expected. I believe she will do well today after she gets some food. Ambulate as tolerated. Expect she will be good to go home today. Follow up in the office in 1 week as scheduled. Rx sent Electronically signed by:Mathew Vidal MD 05/21/23 15:26 Surgical operation note * Event Display: Operative Report Authored Date: [id number] [facility] Name: EULOGIO MORENO Admitted: 05/20/2023 : 1970 Provider: Hossein Harrison MD No: [id number] Unit: [id number] DATE OF PROCEDURE: 05/20/2023 SURGEON: Hossein Harrison MD PREOPERATIVE DIAGNOSIS: Right breast cancer. POSTOPERATIVE DIAGNOSIS: Right breast cancer. PROCEDURE PERFORMED: Right breast total submuscular tissue amusement park worker placement. CO-SURGEON: Mathew Vidal MD. ANESTHESIA: General. DRAINS: One 15-Sudanese fully fluted Lázaro drain. SPECIMENS: Per Surgical Oncology. IMPLANTS: Right breast tissue amusement park worker, 550 cc Sandy medium height tissue amusement park worker. ESTIMATED BLOOD LOSS: Minimal. IV FLUIDS: See anesthesia report. INDICATIONS FOR PROCEDURE: The patient is a 52-year-old female who [facility] a referral from Dr. Vidal. She underwent a right-sided oncoplastic reduction and a left-sided reduction for symmetry; however, she was noted to have some positive margins. Therefore, a decision was made to proceed to the operating room for a completion right-sided mastectomy and ultimately tissue amusement park worker reconstruction. All the risks, benefits, and alternatives of the procedure were discussed with the patient, including risks of infection, bleeding, scarring, DVT/PE, or even . Despite these risks, she did wish to proceed. PROCEDURE IN DETAIL: The patient was met in the preoperative holding area. The operative site was marked. She was then met by the anesthesia service, brought back to the operating suite, and placed in the supine position. Bilateral SCDs were then placed, and antibiotics were administered. General LMA anesthesia was administered. The right breast was then prepped and draped in the usual sterile fashion. A full formal time-out was conducted, identifying the patient by full name and MRN according to the [facility] protocol. After the patient and operative site were identified, Dr. Vidal proceeded with his portion of the procedure. Please see fully dictated operative report by Dr. Vidal regarding his details of the operation. At the completion of the case, as well as per my guidance, I had Dr. Vidal proceed with a nipple-sparing type of mastectomy through an inframammary fold incision alone. I then evaluated this given the nipple-areolar complex was noted to have a slight capillary refill. A decision was made to proceed with SPY angiography to evaluate its blood flow. This was obtained; 3 cc of indocyanine blue werethen injected intravenously along with a 10 cc flush. There was noted to be some capillary fill of indocyanine green within the SPY angiography. Therefore, a decision was made to preserve the nipple-areolar complex on the skin flap for possible preservation. At this time, a submuscular pocket was then created for the tissue amusement park worker. A 550 cc Sandy smoothtissue amusement park worker was then obtained. No intraoperative injection was completed. It was placed in the submuscular pocket after the pocket was thoroughly irrigated with a diluted antibiotic solution. Themuscular pocket was then closed with a 3-0 Vicryl running suture. Hemostasis was achieved in the breast pocket. A 15-Sudanese fully fluted Lázaro drain was then placed in the subcutaneous space. Closurewas then completed of the mastectomy flap with 3- 0 Monocryl and a 3-0 Stratafix suture. Dermabond was placed over the incisions. Patient was then turned over to the anesthesia service. At that time, all needle, instrument, and sponge counts were correct x2. Hossein Harrison MD Voice Job ID#: [id number] Electronically signed by:Hossein Harrison MD 05/21/23 06:38 * Mathew Vidal MD: PERFORM, SIGN, VERIFY Event Display: Operative Report Authored Date: [id number] Patient: EULOGIO MORENO Age: 52 years Sex: Female : 1970 Associated Diagnoses: None Author: Mathew Vidal MD Postoperative Information Date/ Time: 05/20/2023 17:42:00 Preoperative Diagnosis: Preop Dx (ST) SN - GCD - Preop Diagnosis: Right Breast Cancer (05/20/23 16:36:55). Postoperative Diagnosis: Postop Dx (ST) SN - GCD - Post Op Diagnosis: Right Breast Cancer (05/20/23 16:36:55). Procedure: Procedure (ST) SN - SgP - Procedure: Reconstruction Breast with Tissue Research Environmental Scientist Placement (05/20/23) Sn - SgP - Surgeon Preferred Procedure: Nipple Sparing (05/20/23) SN - SgP - Modifiers: Right (05/20/23) SN - SgP - Modifiers: Right (05/20/23) SN - SgP - Modifiers: Right (05/20/23). Performed by: Primary Surgeon (ST) Surgeon - Primary: Mathew Vidal MD . Automation Tester: Physician's Automation Tester (ST) No Logistics Specialist Found . Anesthetic Used: Anesthesia Type (ST) SN - SgP - Anesthesia Type: 3-General (05/20/23) SN - SgP - Anesthesia Type: 3-General (05/20/23) SN - SgP - Anesthesia Type: 3-General (05/20/23). Findings: INDICATION FOR PROCEDURE: The patient is a 52 old female with right breast cancer. The patient originally undergone a reduction mammoplasty and sentinel node biopsy. Unfortunately she had both a positive margin and a microscopic focus of cancer within 1 lymph node. Given this information of present her tumor board and the feeling was if we performed a completion mastectomy and additional node dissection if pathology was favorable she could avoid radiation and therefore immediate reconstruction at this time would be reasonable. Oncotype is pending regarding additional systemic treatment. We discussed at great length and she wanted proceed. She will hopefully be able to avoid radiation in this regard. She has spoken again with Dr. Harrison who is planning reconstruction. DESCRIPTION OF PROCEDURE: The patient had the area prepped and draped in sterile fashion. Inframammary incision was made in the area of the previous reduction scars into this performed essentially a nipple and skin sparing mastectomy and the subcutaneous plane. Electrocautery used to raise flaps superior, inferior, medial and lateral. Medially took dissection to the lateral edge of the sternum reflecting entire breast and pectoralis fascia laterally to latissimus dorsi muscle. After removing the entire breast, I placed a stitch lateral for orientation, and 1 behind the nipple and handed the specimen off the table. Established hemostasis obtained with electrocautery, irrigated, suctioned out irrigation fluid. Turned my attention to the axilla axillary incision was opened. I dissected the axillary space and a level 1 to node dissection. There were several nodes that appeared enlarged. Identified the long thoracic and thoracodorsal nerve and avoid injury to each. Placed clips on crossing veins. Irrigated suctioned under had good hemostasis. Nodes were sent as separate specimen. Dr. Harrison then came in and performed reconstruction. Closure with expanders and closure in drainage of the axilla. He will dictate that portion. Estimated blood loss during my portion of procedure approximately 150 mL. . Specimens Removed: Specimens (ST) SN - CS - Specimen Description: Axillary (05/20/23 17:20:43) SN - CS - Specimen Description: Right, Breast (05/20/23 17:20:43) SN - CS - Comments: content,,... (05/20/23 17:21:10) SN - CS - Comments: long stitch lateral, short stitch behuind the nipple (05/20/23 17:20:43). Estimated Blood Loss: 150 ml. Complications: None. Description of Techniques: Standard. Implants/Grafts: Implant (ST) SN - [place] - Implant Description: SOLAR THERMAL TECHNICIAN MAMM CPX4 [facility] [id number] (05/20/23). Final Count Verification: SN - FCV (ST) No final counts done. Electronically signed by:Mathew Vidal MD 05/20/23 17:46 Patient Care team information Care Team Personnel Name: Mathew Vidal MD Position: PX Physician - General Surgery Med Service: General Surgery Member Role: Admitting Physician Address: Address: [facility] [address]- Care Team Related Persons Name: LAUREANO MOY Address: home [
[2023-10-18 06:42] LABS: Basophils % 3.7 %; Eosinophils % 1.2 %; Hematocrit 23.5 % (36-47); Lymphocytes # 0.5 10^3/uL (0.8-4.8); Lymphocytes % 58.5 %; Mean Corpuscular HGB Conc 32.8 g/dL (30-55); Mean Corpuscular Hemoglobin 28.7 pg (27-33); Mean Corpuscular Volume 87.7 fl (85-98); Mean Platelet Volume 9.6 fL (7.4-10.4); Monocytes # 0.2 10^3/uL (0.2-0.9); Monocytes % 20.7 %; Neutrophils % 14.7 %; Nucleated Red Blood Cells % 0 %; Platelet Count 165 10^3/cmm (157-399); Red Blood Count 2.68 10^6/uL (3.85-5.65); Red Cell Distribution Width 13.2 % (12.1-15.1)
[2023-10-18 07:00] LABS: Anion Gap 11.6 (5-19); Blood Urea Nitrogen 6 mg/dL (6-20); C Reactive Protein 22.1 mg/L (0.0-4.9); Calcium 8.1 mg/dL (8.5-10.5); Carbon Dioxide 23 mmol/L (22-29); Chloride 108 mmol/L (98-107); Glomerular Filtration Rate 128.6 mL/min (90-130); Glucose 83 mg/dL (65-115); Osmolality Calculated 285 mOsm/kg (285-295); Phosphorus 2.8 mg/dL (2.5-4.5); Potassium 3.6 mmol/L (3.5-5.1); Sodium 139 mmol/L (136-145)
[2023-10-18 07:57] LABS: Slide Review Slide Review Perform
[2023-10-18 08:00] LABS: Neutrophils # 0.12 10^3/uL (1.8-7.7); White Blood Count 0.82 10^3/uL (3.29-11.43)
--- NOTE | 2023-10-18 08:06 | PC.NURSE ---
Lab called with critical values on patient Dr. Melo standing by me and took critical values at that time.
[2023-10-18] MEDS: sennosides-docusate Tablet 1 TAB PO (09:26)
[2023-10-18] MEDS: cefepime 2,000 MG in sodium chloride 0.9% (plus) 50 ML 100 MG IV ×2 (09:26→20:24)
[2023-10-18] MEDS: acyclovir 400 mg Tablet PO ×2 (09:26→18:41)
[2023-10-18] MEDS: propranolol 40 mg Tablet PO ×2 (09:27→18:44)
[2023-10-18] MEDS: oseltamivir phosphate 75 mg Capsule PO ×2 (09:27→18:42)
[2023-10-18] MEDS: heparin 5,000 unit/mL INJ 1 mL 5000 UNIT SUBCUT ×2 (09:28→20:24)
[2023-10-18] MEDS: iohexol 350 mg/mL 500 mL Btl (per mL) IV (09:29)
--- NOTE | 2023-10-18 09:30 | CTR_ITS ---
PROCEDURE INFORMATION: Exam: CTA Chest With Contrast Exam date and time: 10/18/2023 8:52 AM Age: 52 years old Clinical indication: Abnormal findings; Other: Elevated d-dimer 1.14; Cough; Additional info: Palpitations TECHNIQUE: Imaging protocol: Computed tomographic angiography of the chest with contrast. Exam focused on the arteries. 3D rendering (Not supervised by radiologist): MIP and/or 3D reconstructed images were created by the technologist. Radiation optimization: All CT scans at this facility use at least one of these dose optimization techniques: automated exposure control; mA and/or kV adjustment per patient size (includes targeted exams where dose is matched to clinical indication); or iterative reconstruction. Contrast material: OMNI 350; Contrast volume: 42 ml; Contrast route: INTRAVENOUS (IV); COMPARISON: CR (CHEST, ) 10/17/2023 6:21 PM RADIATION DOSE METRICS: Total DLP (mGy-cm): 187.76 FINDINGS: Tubes, catheters and devices: Left PICC line is in place. Pulmonary arteries: No evidence of main, lobar, or segmental occlusive PE. Aorta: Unremarkable. No aortic aneurysm. No aortic dissection. 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 See series 6 images [id number]. SMA is widely patent. Lungs: Mild COPD. Mild areas of bibasilar atelectasis. No consolidation or lung mass is noted. A few minute calcified lung nodules are seen incidentally. No dominant lung mass or spiculated nodule. Pleural spaces: Trace bilateral pleural effusions versus pleural thickening. No pneumothorax. Heart: The heart is not enlarged. No pericardial effusion is noted. Lymph nodes: Calcified mediastinal and hilar benign-appearing lymph nodes. Bones/joints: Skeletal structures are age appropriate. No acute fracture is seen. Soft tissues: Right breast prosthesis with mastectomy. Right axillary clips. CT/CT angio chest PE protcl [id number] IMPRESSION: 1. No focal PE or pneumonia. 2. Postop changes. 3. Trace bilateral pleural effusions versus trace pleural thickening. 4. 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
--- NOTE | 2023-10-18 10:51 | P.PN_ITS ---
Subjective 2 Subjective: History and physical reviewed. Discussed with the patient the need to continue to give antibiotics, close monitoring considering her degree of neutropenia. Also discussed her recent positive influenza advertent [place]. CTA has been ordered this morning to exclude pulm embolism secondary to chronic cough Echo has been ordered. She reports her cough has been going on for quite some time, and she has attributed that to Neulasta. Last Neulasta was given October 12 with her treatment Medications: Reviewed: Yes Vitals/I&O/Wt Last Vital Signs Temp 98.6 F 10/18/23 08:00 Pulse 94 10/18/23 08:00 Resp 16 10/18/23 08:00 BP 114/78 10/18/23 08:00 Pulse Ox 96 10/18/23 08:00 O2 Del Method Room Air 10/18/23 08:00 10/17/23 10/18/23 10/18/23 22:59 06:59 14:59 Intake Total 1000 / 1000 1300 / 2300 550 / 550 Output Total 240 / 240 Balance 760 / 760 1300 / 2060 550 / 550 Weight last 48 hrs Weight 55.792 kg Weight 55.792 kg Physical Exam 2 Narrative: General exam no distress Neck is supple no lymphadenopathy Cardiovascular regular rate and rhythm without murmur Lungs clear no wheezing or crackles Abdomen is soft with positive bowel sounds Extremities no cyanosis clubbing edema Data 10/18/23 06:07 10/18/23 06:07 Micro: Microbiology 10/17/23 19:52 Bacterial Antigens - Final Urine,Voided Other data: Chest x-ray reviewed by me agree with radiology reading EKG reviewed by me, sinus rhythm, normal axis, no acute changes A&P Assessment and plan (1) Sepsis: She was diagnosed with sepsis on admission At this point she is not needed any further hydration. She is orally hydrating Continue cefepime, vancomycin Await cultures (2) Neutropenia: She received Neulasta with her last chemotherapy treatment Monitor white blood cell count for improvement (3) Influenza: Continue Tamiflu (4) Cough: Unknown etiology CTA demonstrates no pulmonary embolism Certainly influenza may have contributed worsening of this (5) Breast cancer of upper-inner quadrant of right female breast: Recent chemotherapy October 12 (6) Anemia: She has symptomatic anemia likely related to her chemotherapy, main symptomatology being palpitations/fast heart rate. Secondary to palpitations and echocardiogram was also obtained and this is pending. TSH was normal. Transfuse 1 unit packed red blood cells irradiated, leukocyte deplete Recheck CBC tomorrow Plan Other medical problems as outlined by past medical history Full code Heparin for DVT prophylaxis Attestations 2 Medical Necessity Statement*: Needs continued hospitalization for treatment with IV antibiotics secondary to fever and neutropenia Other Coding Information 35 Diagnoses Sepsis A41.9 Neutropenia D70.9 Influenza J11.1 Cough R05.9 Breast cancer of upper-inner quadrant of right female breast C50.211 Anemia D64.9
[2023-10-18] MEDS: buPROPion XL (24 HR) 150 mg Tablet PO (12:20)
[2023-10-18] MEDS: sodium chloride 0.9% (100 ml) 100 ML 125 ML (19:05)
[2023-10-18] MEDS: famotidine 20 mg Tablet PO (20:24)
[2023-10-18] MEDS: atorvastatin 40 mg Tablet PO (20:24)
[2023-10-19] VITALS: BP 120/80; PULSE 78; RESP 18; TEMP 37.7; O2SAT 97
[2023-10-19] MEDS: guaiFENesin-dextromethorphan UDC 10 mL 5 ML PO (00:49)
[2023-10-19 01:15] LABS: Vancomycin Trough 13.7 ug/mL (10-15)
[2023-10-19] MEDS: vancomycin 750 MG in sodium chloride 0.9% 250 ML 150 MG IV (01:58)
[2023-10-19 04:48] VITALS: BP 120/68; PULSE 60; RESP 16; TEMP 37.4; O2SAT 98
[2023-10-19 06:00] VITALS: PULSE 89
[2023-10-19 06:01] LABS: Basophils % 1.5 %; Eosinophils % 1.5 %; Hematocrit 28.6 % (36-47); Lymphocytes # 0.9 10^3/uL (0.8-4.8); Lymphocytes % 45.8 %; Mean Corpuscular HGB Conc 33.9 g/dL (30-55); Mean Corpuscular Hemoglobin 28.9 pg (27-33); Mean Corpuscular Volume 85.1 fl (85-98); Mean Platelet Volume 9.8 fL (7.4-10.4); Monocytes # 0.6 10^3/uL (0.2-0.9); Neutrophils % 16.8 %; Nucleated Red Blood Cells % 0 %; Platelet Count 169 10^3/cmm (157-399); Red Blood Count 3.36 10^6/uL (3.85-5.65); Red Cell Distribution Width 13.1 % (12.1-15.1); White Blood Count 2.03 10^3/uL (3.29-11.43)
[2023-10-19 06:32] LABS: Alanine Aminotransferase 10 U/L (0-33); Albumin Level 3.3 g/dL (3.5-5.2); Alkaline Phosphatase 69 U/L (35-105); Anion Gap 13.7 (5-19); Aspartate Amino Transferase 12 U/L (0-32); Blood Urea Nitrogen 4 mg/dL (6-20); Calcium 9.1 mg/dL (8.5-10.5); Carbon Dioxide 24 mmol/L (22-29); Chloride 105 mmol/L (98-107); Globulin 2.5 g/dL (1.3-4.6); Glomerular Filtration Rate 104.2 mL/min (90-130); Glucose 79 mg/dL (65-115); Magnesium 1.9 mg/dL (1.7-2.3); Osmolality Calculated 284 mOsm/kg (285-295); Potassium 3.7 mmol/L (3.5-5.1); Sodium 139 mmol/L (136-145); Total Bilirubin 0.4 mg/dL (0.15-1.2); Total Protein 5.8 g/dL (6.6-8.7)
[2023-10-19 07:14] LABS: Neutrophils # 0.34 10^3/uL (1.8-7.7); Slide Review Slide Review Perform
[2023-10-19 07:41] VITALS: BP 124/81; PULSE 81; RESP 15; TEMP 36.8; O2SAT 95
[2023-10-19] MEDS: acyclovir 400 mg Tablet PO (08:36)
[2023-10-19] MEDS: cefepime 2,000 MG in sodium chloride 0.9% (plus) 50 ML 100 MG IV (08:36)
[2023-10-19] MEDS: buPROPion XL (24 HR) 150 mg Tablet PO (08:36)
[2023-10-19] MEDS: heparin 5,000 unit/mL INJ 1 mL 5000 UNIT SUBCUT (08:37)
[2023-10-19] MEDS: loratadine 10 mg Tablet PO (08:37)
[2023-10-19] MEDS: sennosides-docusate Tablet 1 TAB PO (08:37)
[2023-10-19] MEDS: oseltamivir phosphate 75 mg Capsule PO (08:37)
[2023-10-19] MEDS: propranolol 40 mg Tablet PO (08:37)
--- NOTE | 2023-10-19 09:24 | P.DS_ITS ---
Discharge Providers Date of Admission: 10/17/23 22:24 Date of Discharge: October 19, 2023 Attending Provider at Admission: Humaira García MD Attending Provider at Discharge: Juno Beaver MD Primary Care Provider: SELMA Mckeon Diagnoses at Discharge Discharge Diagnosis (1) Sepsis: Status: Acute (2) Neutropenia: Status: Acute (3) Influenza: Status: Acute (4) Cough: Status: Acute (5) Breast cancer of upper-inner quadrant of right female breast: Status: Acute (6) Anemia: Status: Acute Reason for Visit Reason for Visit: Heart fluering Hospital Course Hospital Course Alexa is a 52-year-old white female who presented with fever, neutropenia, recent history of influenza and recent chemotherapy. She was also having some issues with palpitations. Blood cultures were drawn. She was placed on broad-spectrum antibiotics including cefepime and vancomycin. Acyclovir was continued. She was given Tamiflu, to complete her course she had been initiated on as an outpatient. By the end of her hospital course she was afebrile. She was still coughing some but CTA was negative and it was attributed to influenza or other medication effect. I discussed her case with her primary oncologist and he felt comfortable with her going home as her ANC was improving. She did receive a unit of blood while in the hospital for anemia related to chemotherapy. Palpitation she had had prior to coming in and resolved with blood transfusion. She was given opportunity ask questions and agreed with the plan. Blood cultures were negative at discharge. Physical Exam Narrative: General exam no distress Neck is supple Cardiovascular regular rate and rhythm Lungs clear Abdomen soft Extremities no cyanosis clubbing or edema Discharge Data Studies Completed and Pending Completed Studies During Hospitalization Category Date Time Status CT angio chest PE protcl [id number] Stat Cat Scan 10/18/23 09:30 Completed XR chest 1V portable [id number] Stat Exams 10/17/23 18:10 Completed Pending at discharge Category Date Time Status Blood Cultures ([facility]) Routine Lab 10/17/23 20:43 Received Blood Cultures ([facility]) Routine Lab 10/17/23 20:47 Received MRSA [Methicillin Resistant S.aureu] Routine Lab 10/17/23 22:30 Received Sputum Culture and Gram Stain Routine Lab 10/17/23 22:30 Uncollected CV. echo complete* [id number] Routine Ultrasound 10/19/23 10:00 Taken Radiology Impressions Chest X-Ray 10/17/23 18:10 IMPRESSION: 1. No acute cardiopulmonary abnormality. 2. Left sided central venous catheter with tip in the region of the mid SVC. Chest CTA 10/18/23 09:30 IMPRESSION: 1. No focal PE or pneumonia. 2. Postop changes. 3. Trace bilateral pleural effusions versus trace pleural thickening. 4. 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 Laboratory Results WBC 2.03 10^3/uL (3.29-11.43) L 10/19/23 05:25 RBC 3.36 10^6/uL (3.85-5.65) L 10/19/23 05:25 Hgb 9.70 g/dL (11.27-16.99) L 10/19/23 05:25 Hct 28.6 % (36-47) L 10/19/23 05:25 MCV 85.1 fl (85-98) 10/19/23 05:25 MCH 28.9 pg (27-33) 10/19/23 05:25 MCHC 33.9 g/dL (30-55) 10/19/23 05:25 RDW 13.1 % (12.1-15.1) 10/19/23 05:25 Plt Count 169 10^3/cmm (157-399) 10/19/23 05:25 MPV 9.8 fL (7.4-10.4) 10/19/23 05:25 Neut % (Auto) 16.8 % 10/19/23 05:25 Lymph % (Auto) 45.8 % 10/19/23 05:25 Sawyer % (Auto) 30.0 % 10/19/23 05:25 Eos % (Auto) 1.5 % 10/19/23 05:25 Baso % (Auto) 1.5 % 10/19/23 05:25 Neut # (Auto) 0.34 10^3/uL (1.8-7.7) L* 10/19/23 05:25 Lymph # (Auto) 0.9 10^3/uL (0.8-4.8) 10/19/23 05:25 Sawyer # (Auto) 0.6 10^3/uL (0.2-0.9) 10/19/23 05:25 Eos # (Auto) 0.0 10^3/uL (0.0-0.8) 10/19/23 05:25 Baso # (Auto) 0.0 10^3/uL (0.0-0.1) 10/19/23 05:25 Nucleated RBC % (auto) 0 % 10/19/23 05:25 Nucleated RBCs # 0.0 /100WBC 10/19/23 05:25 D-Dimer 1.14 ug/mLFEU (0-0.59) H 10/17/23 18:38 Sodium 139 mmol/L (136-145) 10/19/23 05:25 Potassium 3.7 mmol/L (3.5-5.1) 10/19/23 05:25 Chloride 105 mmol/L (98-107) 10/19/23 05:25 Carbon Dioxide 24 mmol/L (22-29) 10/19/23 05:25 Anion Gap 13.7 (5-19) 10/19/23 05:25 BUN 4 mg/dL (6-20) L 10/19/23 05:25 Creatinine 0.6 mg/dL (0.5-0.9) 10/19/23 05:25 GFR Calculation 104.2 mL/min (90-130) 10/19/23 05:25 Glucose 79 mg/dL (65-115) 10/19/23 05:25 Calculated Osmolality 284 mOsm/kg (285-295) L 10/19/23 05:25 Lactate 0.9 mmol/L (0.5-2.2) 10/17/23 21:37 Calcium 9.1 mg/dL (8.5-10.5) 10/19/23 05:25 Phosphorus 2.8 mg/dL (2.5-4.5) 10/18/23 06:07 Magnesium 1.9 mg/dL (1.7-2.3) 10/19/23 05:25 Total Bilirubin 0.4 mg/dL (0.15-1.2) 10/19/23 05:25 AST 12 U/L (0-32) 10/19/23 05:25 ALT 10 U/L (0-33) 10/19/23 05:25 Alkaline Phosphatase 69 U/L (35-105) 10/19/23 05:25 Troponin T Baseline < 6 ng/L (0-10) 10/17/23 18:37 Troponin T 120 Minute 6.00 ng/L (0-10) 10/17/23 20:23 Delta Troponin T 0.83334 ABS# (0-10) 10/17/23 20:23 Troponin T Hi Sens 6Hr 6.00 ng/L (0-10) 10/18/23 00:52 Troponin T Hi Sens 6Hr Delta 0.66851 ng/L (0-12) 10/18/23 00:52 C-Reactive Protein 22.1 mg/L (0.0-4.9) H 10/18/23 06:07 NT-Pro-B Natriuret Pep 43 pg/mL (0-125) 10/17/23 18:37 Total Protein 5.8 g/dL (6.6-8.7) L 10/19/23 05:25 Albumin 3.3 g/dL (3.5-5.2) L 10/19/23 05:25 Globulin 2.5 g/dL (1.3-4.6) 10/19/23 05:25 Vitamin B12 > 2000 pg/mL (232-1245) H 10/17/23 18:38 Procalcitonin 0.28 ng/mL (0-0.5) 10/17/23 18:38 TSH 2.29 uIU/mL (0.27-4.20) 10/17/23 18:37 Urine Color Yellow (Yellow) 10/17/23 19:52 Urine Appearance Clear (CLEAR) 10/17/23 19:52 Urine pH 5 (5-7) 10/17/23 19:52 Ur Specific [place] 1.005 (1.005-1.030) 10/17/23 19:52 Urine Protein Neg (Negative) 10/17/23 19:52 Urine Glucose (UA) Norm (Normal) 10/17/23 19:52 Urine Ketones Negative (Negative) 10/17/23 19:52 Urine Blood Neg (Negative) 10/17/23 19:52 Urine Nitrate Negative (Negative) 10/17/23 19:52 Urine Bilirubin Neg (Negative) 10/17/23 19:52 Urine Urobilinogen Norm mg/dL (Negative) 10/17/23 19:52 Ur Leukocyte Esterase Negative (Negative) 10/17/23 19:52 Vancomycin Trough 13.7 ug/mL (10-15) 10/19/23 00:44 Blood Type O Positive 10/18/23 10:19 Rho(D) Type Rh positive 10/18/23 10:19 Antibody Screen Negative 10/18/23 10:19 Crossmatch See Detail 10/18/23 10:19 Vitals Last Vital Signs Temp 98.3 F 10/19/23 07:41 Pulse 81 10/19/23 07:41 Resp 15 10/19/23 07:41 BP 124/81 10/19/23 07:41 Pulse Ox 95 10/19/23 07:41 O2 Del Method Room Air 10/19/23 07:41 Discharge Plan Discharge Patient Disposition: Home Condition: Fair Prescriptions: New codeine-guaifenesin 10-100 mg/5 mL Liquid 5 ml PO Q4H PRN (Reason: Cough) Qty: 60 0RF amoxicillin-pot clavulanate 875-125 mg tablet 1 tab PO BID Qty: 10 0RF fluconazole [Diflucan] 100 mg tablet 100 mg PO DAILY Qty: 5 0RF Continued atorvastatin 20 mg tablet 20 mg PO DAILY bupropion HCl 150 mg tablet extended release 24 hr 150 mg PO QAM Compazine 10 mg tablet 10 mg PO Q4H PRN (Reason: Mild Nausea) Qty: 30 3RF ondansetron 4 mg tablet,disintegrating 4 mg PO Q6H PRN (Reason: nausea and vomiting) Qty: 30 3RF (DME) Cranial prothesis 0 .Route .MEDSUPPLY Qty: 1 0RF Rx Instructions: As directed hydrocortisone acetate 25 mg suppository [address] BID PRN (Reason: rectal discomfort) Qty: 12 1RF acyclovir 400 mg tablet 400 mg PO .COMPLEX Qty: 70 0RF Rx Instructions: Take 1 tablet 4x/day for 5 days and then take 1 tablet BID benzonatate 200 mg capsule 200 mg PO TID PRN (Reason: cough) Qty: 60 0RF fluticasone propionate [Flovent HFA] 220 mcg/actuation HFA aerosol inhaler 2 puff inhalation BID Qty: 1 0RF propranolol 10 mg tablet 40 mg PO BID lorazepam 1 mg tablet 0.5 - 1 mg PO Q6H PRN (Reason: Severe Nausea) Qty: 30 3RF Pepcid 20 mg Tablet 20 mg PO BEDTIME Claritin 10 mg Tablet 10 mg PO DAILY Changed olanzapine 5 mg tablet 5 mg PO QPM PRN (Reason: Breakthrough Nausea and Vomitting) Qty: 30 3RF Rx Instructions: Take for 5 days post chemo. Discharge Orders: Discharge Order (Routine); Ordered 10/19/23 Ordered By: Juno Beaver Referrals: Mara Rg FNP [Primary Care Provider] - 4-7 days Discharge Diet: Usual diet Discharge Activity: Increase activity as tolerated Patient Instructions: Opioid Safety Activity Restrictions/Additional Instructions: Take all medicine as prescribed Return for any fever or worsening symptoms Follow-up with oncology per their instruction Discharge Attestations Time Spent in Discharge Care*: greater than 30 min Quality Metrics Clinical Quality Measures [ No reported AMI, CVA or VTE this stay] Coding Level of Care Code 14879 Total time (in minutes) for Discharge: 37 Diagnoses Sepsis A41.9 Neutropenia D70.9 Influenza J11.1 Cough R05.9 Breast cancer of upper-inner quadrant of right female breast C50.211 Anemia D64.9
--- NOTE | 2023-10-19 10:00 | USCV_ITS ---
Alexa Cerda Age: 52 Gender: F : 1970 Exam Date: 10/19/2023 08:35 Ordering Phys: Humaira García MD Technologist: Jonathan Saucedo Exam Location: [facility] [place] Indication: palpitions BP: 125 / 74 HR: 55 Rhythm: Sinus Technical Quality: Adequate MEASUREMENTS (Male / Female) Normal Values 2D ECHO LV Diastolic Diameter PLAX 4.1 cm 4.2 - 5.9 / 3.9 - 5.3 cm LV Systolic Diameter PLAX 2.4 cm IVS Diastolic Thickness 0.8 cm 0.6 - 1.0 / 0.6 - 0.9 cm IVS Systolic Thickness 1.1 cm LVPW Diastolic Thickness 0.6 cm 0.6 - 1.0 / 0.6 - 0.9 cm LVPW Systolic Thickness 1.1 cm LVOT Diameter 1.7 cm LV Ejection Fraction 2D Teich 73.5 % LV Ejection Fraction MOD 2C 57.3 % LV Ejection Fraction 2C AL 56.7 % LA Diameter 2.7 cm IVC Diameter 2.4 cm M-MODE Aortic Annulus Diameter 2.6 cm LA Ao Ratio MM 1.2 MV E Point Septal Separation 0.5 cm DOPPLER AV Peak Velocity 127.0 cm/s LVOT Peak Velocity 115.0 cm/s AV Area Cont Eq vti 1.9 cm squared AV Area Cont Eq pk 2.1 cm squared MV Area PHT 3.3 cm squared Mitral E to A Ratio 1.4 MV E' Velocity 57.5 cm/s Mitral E to MV E' Ratio 9.3 Mitral E to LV E' Lateral Ratio 9.7 Mitral E to LV E' Septal Ratio 9.0 TR Peak Velocity 239.3 cm/s TR Peak Gradient 22.9 mmHg RV Acceleration Time 0.3 s FINDINGS Left Ventricle Left ventricle is normal in size. LV systolic function is normal with EF 55 to 60%. No regional wall motion abnormalities Right Ventricle Normal in size and function Right Atrium Normal in size Left Atrium Normal in size Mitral Valve Structurally normal mitral valve. Mild mitral regurgitation. Aortic Valve Structurally normal aortic valve. No significant stenosis or regurgitation. Tricuspid Valve Mild tricuspid regurgitation. Insufficient TR jet to calculate RVSP Pulmonic Valve Not well visualization Pericardium Normal Aorta Normal in size IVC Dilated CONCLUSIONS LV systolic function is normal with EF 55 to 60%. Mild mitral regurgitation Mild tricuspid regurgitation IVC is dilated. No comparison studies are available. Nelson Myles MD (Electronically Signed) Final Date: 19 October 2023 17:01 S
[2023-10-19 11:31] VITALS: BP 141/93; PULSE 71; RESP 15; TEMP 36.8; O2SAT 99
[2023-10-19 12:05] VITALS: BP 141/93; PULSE 71; RESP 15; TEMP 36.8; O2SAT 99
--- NOTE | 2023-10-19 12:07 | PC.NURSE ---
Discussed discharge follow up appointments, new medications, changed medications and continued medications. Patient verbalized understanding.
[2023-10-19 14:49] LABS: Methicillin-Resist S.aureu PCR NOT DETECTED (NOT DETECTED)
== END 2023-10-19 11:50 | disposition home or self-care (01) | DRG 872 ==
LOC: ER 20:27 → MEDSURG 20:40
PROVIDERS: Admitting Provider Internal Medicine; Emergency Provider Emergency Medicine; PCP Nurse Practitioner Family; Visit Provider Internal Medicine
DX: A41.9 Sepsis, unspecified organism (principal); D84.9 Immunodeficiency, unspecified; I10 Essential (primary) hypertension; F32.A Depression, unspecified; E78.00 Pure hypercholesterolemia, unspecified; R05.3 Chronic cough; D64.81 Anemia due to antineoplastic chemotherapy; T45.1X5A Adverse effect of antineoplastic and immunosuppressive drugs, initial encounter; D70.9 Neutropenia, unspecified; J34.0 Abscess, furuncle and carbuncle of nose; J11.1 Influenza due to unidentified influenza virus with other respiratory manifestations; C50.211 Malignant neoplasm of upper-inner quadrant of right female breast; Z90.11 Acquired absence of right breast and nipple
CPT/HCPCS: 36415; 36430; 36592; 71045; 71275; 80048; 80053; 80202; 81003; 82607; 83605; 83735; 83880; 84100; 84145; 84443; 84484; 85025; 85378; 86140; 86403; 86850; 86900; 86920; 87040; 87641; 93005; 93306; 96365; 96367; 96372; 96375; 99285; J0692; J1642; J1644; J2543; J3370; J3490; J7030; J7050; J8499; P9040; Q9967

== ENCOUNTER 2023-11-02 10:15 | Oncology outpatient (recurring) (ONCR) | payer OTHER, SELFPAY ==
[2023-10-12 10:23] VITALS: BP 135/70; PULSE 74; RESP 16; TEMP 37.1; O2SAT 96
[2023-10-12 10:30] LABS: Basophils % 0.4 %; Hematocrit 29.1 % (36-47); Lymphocytes # 0.7 10^3/uL (0.8-4.8); Lymphocytes % 7.4 %; Mean Corpuscular HGB Conc 33.7 g/dL (30-55); Mean Corpuscular Hemoglobin 28.7 pg (27-33); Mean Corpuscular Volume 85.1 fl (85-98); Mean Platelet Volume 8.3 fL (7.4-10.4); Monocytes # 0.8 10^3/uL (0.2-0.9); Monocytes % 7.6 %; Neutrophils # 8.37 10^3/uL (1.8-7.7); Neutrophils % 84.2 %; Nucleated Red Blood Cells % 0 %; Platelet Count 710 10^3/cmm (157-399); Red Blood Count 3.42 10^6/uL (3.85-5.65); Red Cell Distribution Width 13.1 % (12.1-15.1); White Blood Count 9.95 10^3/uL (3.29-11.43)
[2023-10-12 10:51] LABS: Alanine Aminotransferase 15 U/L (0-33); Albumin Level 3.9 g/dL (3.5-5.2); Alkaline Phosphatase 85 U/L (35-105); Anion Gap 16.3 (5-19); Aspartate Amino Transferase 17 U/L (0-32); Blood Urea Nitrogen 10 mg/dL (6-20); Carbon Dioxide 24 mmol/L (22-29); Chloride 103 mmol/L (98-107); Globulin 2.9 g/dL (1.3-4.6); Glomerular Filtration Rate 87.2 mL/min (90-130); Glucose 141 mg/dL (65-115); Osmolality Calculated 289 mOsm/kg (285-295); Potassium 4.3 mmol/L (3.5-5.1); Sodium 139 mmol/L (136-145); Total Bilirubin 0.3 mg/dL (0.15-1.2); Total Protein 6.8 g/dL (6.6-8.7)
[2023-10-12 11:01] LABS: Calcium 9.5 mg/dL (8.5-10.5)
[2023-10-12] MEDS: sodium chloride 0.9% 250 ML 75 ML IV (12:04)
[2023-10-12] MEDS: diphenhydrAMINE 50 mg/mL SDV 1mL 25 MG IVP (12:08)
[2023-10-12] MEDS: OLANZapine 5 mg TABLET PO (12:08)
[2023-10-12] MEDS: famotidine 20 mg/2 mL INJ IVP (12:12)
[2023-10-12] MEDS: palonosetron 0.25 mg/5 mL SDV IVP (12:15)
[2023-10-12] MEDS: fosaprepitant 150 MG in sodium chloride 0.9% 150 ML 300 MG IV (12:21)
[2023-10-12] MEDS: pegfilgrastim 6 mg/0.6 mL Kit (onpro) SUBCUT (16:44)
[2023-10-12 16:51] VITALS: BP 135/90; PULSE 80; O2SAT 97
[2023-10-22 12:09] VITALS: BP 127/91; PULSE 84; RESP 16; TEMP 36.4; O2SAT 96
[2023-10-22 12:10] VITALS: BP 127/91; PULSE 84; RESP 16; TEMP 36.4; O2SAT 96
[2023-10-22 12:33] LABS: Hematocrit 31.9 % (36-47); Mean Corpuscular HGB Conc 32.9 g/dL (30-55); Mean Corpuscular Volume 88.1 fl (85-98); Mean Platelet Volume 9.4 fL (7.4-10.4); Platelet Count 335 10^3/cmm (157-399); Red Blood Count 3.62 10^6/uL (3.85-5.65); Red Cell Distribution Width 14.3 % (12.1-15.1); White Blood Count 20.47 10^3/uL (3.29-11.43)
[2023-10-22 12:50] LABS: Alanine Aminotransferase 39 U/L (0-33); Albumin Level 3.9 g/dL (3.5-5.2); Alkaline Phosphatase 166 U/L (35-105); Anion Gap 11.6 (5-19); Aspartate Amino Transferase 36 U/L (0-32); Blood Urea Nitrogen 7 mg/dL (6-20); Calcium 9.1 mg/dL (8.5-10.5); Carbon Dioxide 30 mmol/L (22-29); Chloride 105 mmol/L (98-107); Glomerular Filtration Rate 104.2 mL/min (90-130); Glucose 110 mg/dL (65-115); Osmolality Calculated 295 mOsm/kg (285-295); Potassium 3.6 mmol/L (3.5-5.1); Sodium 143 mmol/L (136-145); Total Bilirubin 0.2 mg/dL (0.15-1.2); Total Protein 6.9 g/dL (6.6-8.7)
[2023-10-22 13:54] LABS: Absolute Neutrophil 16.4 10^3/cmm (1.4-6.5); Absolute Segmented Neutrophil 14.3 10/cmm (1.6-7.1); Eosinophils 0 %; Lymphocytes 8 %; Lymphocytes Absolute 2.5 10^3/cmm (1.2-3.4); Monocytes Absolute 0.8 10^3/cmm (0.1-0.6); Platelet Estimate Normal (Normal); Segmented Neutrophils 70 %; Total Cells Counted 100 (0-100)
[2023-10-26 15:00] VITALS: BP 131/83; PULSE 82; RESP 16; TEMP 36.2; O2SAT 99
[2023-10-26 15:06] LABS: Basophils # 0.1 10^3/uL (0.0-0.1); Basophils % 0.6 %; Eosinophils # 0.1 10^3/uL (0.0-0.8); Eosinophils % 0.6 %; Hematocrit 31.4 % (36-47); Lymphocytes # 1.4 10^3/uL (0.8-4.8); Lymphocytes % 14.3 %; Mean Corpuscular HGB Conc 34.1 g/dL (30-55); Mean Corpuscular Hemoglobin 29.6 pg (27-33); Mean Corpuscular Volume 86.7 fl (85-98); Mean Platelet Volume 8.7 fL (7.4-10.4); Monocytes # 0.8 10^3/uL (0.2-0.9); Monocytes % 8.1 %; Neutrophils # 7.12 10^3/uL (1.8-7.7); Neutrophils % 75.1 %; Nucleated Red Blood Cells % 0 %; Platelet Count 389 10^3/cmm (157-399); Red Blood Count 3.62 10^6/uL (3.85-5.65); Red Cell Distribution Width 13.5 % (12.1-15.1); White Blood Count 9.49 10^3/uL (3.29-11.43)
[2023-10-26 15:30] LABS: Alanine Aminotransferase 22 U/L (0-33); Albumin Level 3.8 g/dL (3.5-5.2); Alkaline Phosphatase 99 U/L (35-105); Anion Gap 14.8 (5-19); Aspartate Amino Transferase 16 U/L (0-32); Blood Urea Nitrogen 9 mg/dL (6-20); Calcium 9.2 mg/dL (8.5-10.5); Carbon Dioxide 28 mmol/L (22-29); Chloride 98 mmol/L (98-107); Globulin 3.4 g/dL (1.3-4.6); Glomerular Filtration Rate 74.7 mL/min (90-130); Glucose 120 mg/dL (65-115); Osmolality Calculated 284 mOsm/kg (285-295); Potassium 3.8 mmol/L (3.5-5.1); Sodium 137 mmol/L (136-145); Total Bilirubin 0.4 mg/dL (0.15-1.2); Total Protein 7.2 g/dL (6.6-8.7)
[2023-11-02 10:03] VITALS: BMI 20.8
[2023-11-02 10:04] VITALS: BP 152/88; PULSE 68; RESP 17; TEMP 36.4; O2SAT 98
[2023-11-02 10:39] LABS: Basophils # 0.1 10^3/uL (0.0-0.1); Basophils % 0.5 %; Hematocrit 28.3 % (36-47); Lymphocytes # 0.9 10^3/uL (0.8-4.8); Lymphocytes % 9.6 %; Mean Corpuscular HGB Conc 32.9 g/dL (30-55); Mean Corpuscular Hemoglobin 29.3 pg (27-33); Mean Corpuscular Volume 89.3 fl (85-98); Mean Platelet Volume 8.4 fL (7.4-10.4); Monocytes # 0.8 10^3/uL (0.2-0.9); Monocytes % 8.4 %; Neutrophils # 7.45 10^3/uL (1.8-7.7); Nucleated Red Blood Cells % 0 %; Platelet Count 505 10^3/cmm (157-399); Red Blood Count 3.17 10^6/uL (3.85-5.65); Red Cell Distribution Width 14.5 % (12.1-15.1)
[2023-11-02 10:59] LABS: Alanine Aminotransferase 12 U/L (0-33); Albumin Level 3.7 g/dL (3.5-5.2); Alkaline Phosphatase 64 U/L (35-105); Anion Gap 12.5 (5-19); Aspartate Amino Transferase 11 U/L (0-32); Blood Urea Nitrogen 10 mg/dL (6-20); Calcium 9.1 mg/dL (8.5-10.5); Carbon Dioxide 26 mmol/L (22-29); Chloride 105 mmol/L (98-107); Globulin 2.7 g/dL (1.3-4.6); Glomerular Filtration Rate 104.2 mL/min (90-130); Glucose 116 mg/dL (65-115); Osmolality Calculated 290 mOsm/kg (285-295); Potassium 3.5 mmol/L (3.5-5.1); Sodium 140 mmol/L (136-145); Total Bilirubin 0.2 mg/dL (0.15-1.2); Total Protein 6.4 g/dL (6.6-8.7)
[2023-11-02 11:58] LABS: Ferritin 415 ng/mL (15-150); Iron 67 ug/dL (37-145); Percent Saturation 30.8 % (20-50); Total Iron Binding Capacity 217 mcg/dl; Unsaturated Iron Binding 150 ug/dL (112-347)
[2023-11-02] MEDS: palonosetron 0.25 mg/5 mL SDV IVP (12:19)
[2023-11-02] MEDS: OLANZapine 5 mg TABLET PO (12:19)
[2023-11-02] MEDS: sodium chloride 0.9% 250 ML 75 ML IV (12:19)
[2023-11-02] MEDS: famotidine 20 mg/2 mL INJ IVP (12:22)
[2023-11-02] MEDS: diphenhydrAMINE 50 mg/mL SDV 1mL 25 MG IVP (12:26)
[2023-11-02] MEDS: fosaprepitant 150 MG in sodium chloride 0.9% 150 ML 300 MG IV (12:48)
[2023-11-02 12:51] LABS: Vitamin B12 > 2000 pg/mL (232-1245)
[2023-11-02 16:29] VITALS: BP 171/93; PULSE 52; RESP 16; TEMP 35.9; O2SAT 98
== END 2023-11-02 23:59 | disposition home or self-care (01) ==
PROVIDERS: Nurse Practitioner Family; PCP Nurse Practitioner Family; Visit Provider Internal Medicine Medical Oncology
DX: C50.211 Malignant neoplasm of upper-inner quadrant of right female breast (principal); Z53.9 Procedure and treatment not carried out, unspecified reason; D64.9 Anemia, unspecified; Z79.899 Other long term (current) drug therapy
CPT/HCPCS: 36415; 36592; 80053; 82607; 82728; 83540; 83550; 85007; 85025; 96365; 96367; 96374; 96375; 96377; 96413; 96417; J1100; J1200; J1453; J1642; J2469; J2506; J3490; J7040; J7050; J9070; J9171

== ENCOUNTER 2023-11-10 10:00 | Oncology outpatient (recurring) (ONCR) | payer OTHER, SELFPAY ==
[2023-11-09 13:43] LABS: Hematocrit 29.4 % (36-47); Lymphocytes # 0.5 10^3/uL (0.8-4.8); Mean Corpuscular HGB Conc 33.7 g/dL (30-55); Mean Corpuscular Hemoglobin 29.6 pg (27-33); Mean Platelet Volume 8.8 fL (7.4-10.4); Monocytes # 0.1 10^3/uL (0.2-0.9); Nucleated Red Blood Cells % 0 %; Platelet Count 341 10^3/cmm (157-399); Red Blood Count 3.34 10^6/uL (3.85-5.65); Red Cell Distribution Width 13.6 % (12.1-15.1)
[2023-11-09 13:56] LABS: Alanine Aminotransferase 14 U/L (0-33); Albumin Level 4.2 g/dL (3.5-5.2); Alkaline Phosphatase 73 U/L (35-105); Anion Gap 16.3 (5-19); Aspartate Amino Transferase 16 U/L (0-32); Blood Urea Nitrogen 11 mg/dL (6-20); Calcium 9.7 mg/dL (8.5-10.5); Carbon Dioxide 26 mmol/L (22-29); Chloride 98 mmol/L (98-107); Globulin 3.1 g/dL (1.3-4.6); Glomerular Filtration Rate 104.2 mL/min (90-130); Glucose 100 mg/dL (65-115); Osmolality Calculated 281 mOsm/kg (285-295); Potassium 4.3 mmol/L (3.5-5.1); Sodium 136 mmol/L (136-145); Total Bilirubin 0.7 mg/dL (0.15-1.2); Total Protein 7.3 g/dL (6.6-8.7)
[2023-11-09 14:21] LABS: Slide Review Slide Review Perform
[2023-11-09 14:22] LABS: Neutrophils # 0.42 10^3/uL (1.8-7.7)
[2023-11-10] MEDS: sodium chloride 0.9% 1,000 ML 999 ML IV (10:31)
[2023-11-10 10:48] LABS: Add Urine Microscopic? NO; Charge for UA Resulting for Rev
[2023-11-10 10:49] VITALS: BP 123/68; PULSE 100; RESP 18; O2SAT 96
[2023-11-10 10:50] LABS: Basophils % 2.4 %; Hematocrit 28.1 % (36-47); Lymphocytes # 0.4 10^3/uL (0.8-4.8); Mean Corpuscular HGB Conc 33.8 g/dL (30-55); Mean Corpuscular Hemoglobin 29.8 pg (27-33); Mean Corpuscular Volume 88.1 fl (85-98); Mean Platelet Volume 8.7 fL (7.4-10.4); Monocytes # 0.2 10^3/uL (0.2-0.9); Monocytes % 28.6 %; Nucleated Red Blood Cells % 0 %; Platelet Count 335 10^3/cmm (157-399); Red Blood Count 3.19 10^6/uL (3.85-5.65); Red Cell Distribution Width 13.3 % (12.1-15.1)
[2023-11-10] MEDS: ondansetron 2 mg/ML SDV 2 mL 8 MG IVP (10:50)
[2023-11-10] MEDS: levofloxacin-dextrose 5 % 750 MG/150 ML PREMIX 100 MG IV (10:52)
[2023-11-10 10:59] LABS: Bilirubin Urine Neg (Negative); Blood Urine Neg (Negative); Glucose Urine UA Norm (Normal); Ketones Urine Negative (Negative); Leukocyte Esterase Urine Negative (Negative); Nitrate Urine Negative (Negative); Protein Urine Neg (Negative); Specific Gravity, Urine 1.015 (1.005-1.030); Urine Appearance Clear (CLEAR); Urine Color Yellow (Yellow); Urobilinogen Urine Norm (Negative); pH Urine 6 (5-7)
[2023-11-10 11:06] LABS: Alanine Aminotransferase 14 U/L (0-33); Albumin Level 3.9 g/dL (3.5-5.2); Alkaline Phosphatase 68 U/L (35-105); Aspartate Amino Transferase 13 U/L (0-32); Blood Urea Nitrogen 10 mg/dL (6-20); Calcium 8.9 mg/dL (8.5-10.5); Carbon Dioxide 24 mmol/L (22-29); Chloride 96 mmol/L (98-107); Globulin 3.2 g/dL (1.3-4.6); Glomerular Filtration Rate 104.2 mL/min (90-130); Glucose 110 mg/dL (65-115); Osmolality Calculated 276 mOsm/kg (285-295); Sodium 133 mmol/L (136-145); Total Bilirubin 0.7 mg/dL (0.15-1.2); Total Protein 7.1 g/dL (6.6-8.7)
[2023-11-10 12:03] LABS: Neutrophils # 0.16 10^3/uL (1.8-7.7); White Blood Count 0.84 10^3/uL (3.29-11.43)
[2023-11-10 12:05] LABS: Slide Review Slide Review Perform
[2023-11-10] MEDS: filgrastim-sndz 300 mcg/0.5 mL Syringe SUBCUT (12:19)
[2023-11-10 12:28] VITALS: BP 113/72; PULSE 110; RESP 16; TEMP 37.1; O2SAT 98
== END 2023-11-10 23:59 | disposition home or self-care (01) ==
PROVIDERS: PCP Nurse Practitioner Family; Visit Provider Internal Medicine Medical Oncology
DX: C50.211 Malignant neoplasm of upper-inner quadrant of right female breast (principal); Z53.9 Procedure and treatment not carried out, unspecified reason; Z17.0 Estrogen receptor positive status [ER+]; Z79.899 Other long term (current) drug therapy; Z79.52 Long term (current) use of systemic steroids; R30.0 Dysuria; B99.9 Unspecified infectious disease; K52.1 Toxic gastroenteritis and colitis
CPT/HCPCS: 36592; 51702; 80053; 81003; 85025; 96365; 96366; 96372; J1642; J1956; J2405; J7030; Q5101

== ENCOUNTER 2023-11-23 08:56 | Oncology outpatient (recurring) (ONCR) | payer OTHER, SELFPAY ==
[2023-11-11] MEDS: filgrastim-sndz 300 mcg/0.5 mL Syringe SUBCUT (14:55)
[2023-11-12] MEDS: filgrastim-sndz 300 mcg/0.5 mL Syringe SUBCUT (11:44)
[2023-11-16 14:14] LABS: Hematocrit 25.2 % (36-47); Mean Corpuscular HGB Conc 34.1 g/dL (30-55); Mean Corpuscular Hemoglobin 30.2 pg (27-33); Mean Corpuscular Volume 88.4 fl (85-98); Mean Platelet Volume 8.4 fL (7.4-10.4); Platelet Count 513 10^3/cmm (157-399); Red Blood Count 2.85 10^6/uL (3.85-5.65); Red Cell Distribution Width 14.6 % (12.1-15.1)
[2023-11-16 14:29] LABS: Alanine Aminotransferase 12 U/L (0-33); Albumin Level 3.6 g/dL (3.5-5.2); Alkaline Phosphatase 80 U/L (35-105); Anion Gap 13.5 (5-19); Aspartate Amino Transferase 15 U/L (0-32); Blood Urea Nitrogen 5 mg/dL (6-20); Calcium 8.9 mg/dL (8.5-10.5); Carbon Dioxide 28 mmol/L (22-29); Chloride 100 mmol/L (98-107); Globulin 2.6 g/dL (1.3-4.6); Glomerular Filtration Rate 104.2 mL/min (90-130); Glucose 109 mg/dL (65-115); Osmolality Calculated 284 mOsm/kg (285-295); Potassium 3.5 mmol/L (3.5-5.1); Sodium 138 mmol/L (136-145); Total Bilirubin 0.2 mg/dL (0.15-1.2); Total Protein 6.2 g/dL (6.6-8.7)
[2023-11-16 14:57] LABS: Slide Review Slide Review Perform
[2023-11-16 14:58] LABS: Absolute Neutrophil 5.5 10^3/cmm (1.4-6.5); Absolute Segmented Neutrophil 4.9 10/cmm (1.6-7.1); Anisocytosis 2+; Band Neutrophils Absolute 0.6 10^3/cmm (0.0-1.2); Blastocytes 0 % (0-0); Eosinophils 0 %; Lymphocytes 19 %; Lymphocytes Absolute 1.9 10^3/cmm (1.2-3.4); Microcytosis 1+; Monocytes Absolute 1.2 10^3/cmm (0.1-0.6); Platelet Estimate Increased (Normal); Poikilocytosis 1+; Polychromasia 1+; Segmented Neutrophils 48 %; Total Cells Counted 100 (0-100)
[2023-11-23 09:38] LABS: Basophils # 0.1 10^3/uL (0.0-0.1); Basophils % 1.6 %; Eosinophils % 0.2 %; Hematocrit 28.9 % (36-47); Lymphocytes # 1.1 10^3/uL (0.8-4.8); Lymphocytes % 21.3 %; Mean Corpuscular HGB Conc 32.2 g/dL (30-55); Mean Corpuscular Volume 93.2 fl (85-98); Mean Platelet Volume 8.4 fL (7.4-10.4); Monocytes # 0.5 10^3/uL (0.2-0.9); Monocytes % 9.5 %; Neutrophils # 3.38 10^3/uL (1.8-7.7); Neutrophils % 66.6 %; Nucleated Red Blood Cells % 0 %; Platelet Count 457 10^3/cmm (157-399); Red Cell Distribution Width 16.5 % (12.1-15.1); White Blood Count 5.07 10^3/uL (3.29-11.43)
[2023-11-23 10:11] LABS: Alanine Aminotransferase 18 U/L (0-33); Albumin Level 3.8 g/dL (3.5-5.2); Alkaline Phosphatase 60 U/L (35-105); Anion Gap 13.3 (5-19); Aspartate Amino Transferase 19 U/L (0-32); Blood Urea Nitrogen 16 mg/dL (6-20); Calcium 8.8 mg/dL (8.5-10.5); Carbon Dioxide 26 mmol/L (22-29); Chloride 106 mmol/L (98-107); Globulin 2.3 g/dL (1.3-4.6); Glomerular Filtration Rate 87.2 mL/min (90-130); Glucose 101 mg/dL (65-115); Osmolality Calculated 293 mOsm/kg (285-295); Potassium 4.3 mmol/L (3.5-5.1); Sodium 141 mmol/L (136-145); Total Bilirubin 0.2 mg/dL (0.15-1.2); Total Protein 6.1 g/dL (6.6-8.7)
[2023-11-23 12:04] LABS: INR 0.91 (0.8-1.2); Partial Thromboplastin Time 26.2 SECONDS (23.9-36.7)
[2023-11-23 12:05] LABS: Fibrinogen 403 mg/dL (174-498)
[2023-11-29 16:13] LABS: Factor VIII Activity Clotting 102 % normal (50-180)
[2023-11-29 16:39] LABS: Von Willebrand Factor AG 128 % (50-217); Von Willebrand Ristocetin(Rcf) 118 % normal (42-200)
== END 2023-12-09 23:59 | disposition home or self-care (01) ==
PROVIDERS: PCP Nurse Practitioner Family; Visit Provider Internal Medicine Medical Oncology
DX: Z53.9 Procedure and treatment not carried out, unspecified reason (principal); C50.211 Malignant neoplasm of upper-inner quadrant of right female breast; Z17.0 Estrogen receptor positive status [ER+]; R79.1 Abnormal coagulation profile
CPT/HCPCS: 36415; 36592; 80053; 85007; 85025; 85240; 85245; 85246; 85384; 85610; 85730; 96372; J1642; Q5101

== ENCOUNTER 2024-01-20 15:00 | Oncology outpatient (recurring) (ONCR) | payer OTHER, SELFPAY ==
[2024-01-19 12:13] LABS: Basophils # 0.1 10^3/uL (0.0-0.1); Basophils % 1.8 %; Eosinophils # 0.1 10^3/uL (0.0-0.8); Eosinophils % 3.3 %; Hematocrit 38.6 % (36-47); Lymphocytes # 1.1 10^3/uL (0.8-4.8); Mean Corpuscular HGB Conc 34.5 g/dL (30-55); Mean Corpuscular Hemoglobin 30.4 pg (27-33); Mean Corpuscular Volume 88.3 fl (85-98); Mean Platelet Volume 8.6 fL (7.4-10.4); Monocytes # 0.4 10^3/uL (0.2-0.9); Monocytes % 11.4 %; Neutrophils # 1.63 10^3/uL (1.8-7.7); Neutrophils % 49.2 %; Nucleated Red Blood Cells % 0 %; Platelet Count 302 10^3/cmm (157-399); Red Blood Count 4.37 10^6/uL (3.85-5.65); Red Cell Distribution Width 11.5 % (12.1-15.1); White Blood Count 3.32 10^3/uL (3.29-11.43)
[2024-01-19 12:59] LABS: Alanine Aminotransferase 16 U/L (0-33); Albumin Level 4.6 g/dL (3.5-5.2); Alkaline Phosphatase 68 U/L (35-105); Anion Gap 14.5 (5-19); Aspartate Amino Transferase 17 U/L (0-32); Blood Urea Nitrogen 12 mg/dL (6-20); Calcium 9.7 mg/dL (8.5-10.5); Carbon Dioxide 29 mmol/L (22-29); Chloride 103 mmol/L (98-107); Creatinine Clr Calc Pharmacy 82.5789; Globulin 2.5 g/dL (1.3-4.6); Glomerular Filtration Rate 86.9 mL/min (90-130); Glucose 103 mg/dL (65-115); Osmolality Calculated 294 mOsm/kg (285-295); Potassium 4.5 mmol/L (3.5-5.1); Sodium 142 mmol/L (136-145); Total Bilirubin 0.3 mg/dL (0.15-1.2); Total Protein 7.1 g/dL (6.6-8.7)
--- NOTE | 2024-01-19 15:33 | PC.NURSE ---
No treatment done due to drug unavailable today.mm
[2024-01-19 17:17] LABS: 25 Hydroxy Vitamin D 94 ng/mL (30-100)
[2024-01-20] MEDS: lidocaine 1% INJ 20 mL MDV (mL) SUBCUT (15:00)
[2024-01-20] MEDS: goserelin acetate 3.6 mg Implant 3.60000000000000009 MG SUBCUT (15:13)
[2024-01-20 15:30] VITALS: BP 170/89; PULSE 71; RESP 16; TEMP 36.8; O2SAT 98
== END 2024-02-08 23:59 | disposition home or self-care (01) ==
PROVIDERS: Nurse Practitioner Family; PCP Nurse Practitioner Family; Visit Provider Internal Medicine Medical Oncology
DX: C50.211 Malignant neoplasm of upper-inner quadrant of right female breast; Z53.9 Procedure and treatment not carried out, unspecified reason; Z51.11 Encounter for antineoplastic chemotherapy
CPT/HCPCS: 36591; 80053; 82306; 85025; 96372; 96402; J9202

== ENCOUNTER 2024-02-14 13:53 | Outpatient (RCR) | payer OTHER, SELFPAY | END 2024-03-10 23:59 | disposition home or self-care (01) | LOC: SPT 13:53 | PROVIDERS: PCP Nurse Practitioner Family; Visit Provider Nurse Practitioner Family | DX: M25.512 Pain in left shoulder (principal) | CPT/HCPCS: 97110; 97161 ==

== ENCOUNTER 2024-02-16 12:08 | Oncology outpatient (recurring) (ONCR) | payer OTHER, SELFPAY ==
--- NOTE | 2024-02-11 13:00 | XR_ITS ---
WS: [id number] SCREENING DEXA SCAN [employer] CLINICAL INFORMATION: AI use FINDINGS: The L1-L4 bone mineral density measures 1.260 g/cm2. This corresponds to a T score score of 0.7 and Z score of 1.7. Left femoral neck bone mineral density measures 1.082 g/cm2. This corresponds to a T score of 0.6 and Z score of 1.4. Right femoral neck bone mineral density measures 1.091 g/cm2. This corresponds to a T score 0.7of and Z score of 1.5. Mean femoral neck bone mineral density measures 1.086 g/cm2. This corresponds to a T score of 0.6 and Z score of 1.5. XR/XR DEXA axial skeleton* [id number] IMPRESSION: Normal bone mineralization. Patient's FRAX calculated 10 year probability for major osteoporotic fracture i s 4.8% and osteoporotic hip fracture is 0.1%.
[2024-02-16 12:53] LABS: Basophils % 1.1 %; Eosinophils # 0.2 10^3/uL (0.0-0.8); Eosinophils % 6.8 %; Hematocrit 37.7 % (36-47); Mean Corpuscular HGB Conc 34.5 g/dL (30-55); Mean Corpuscular Hemoglobin 29.9 pg (27-33); Mean Corpuscular Volume 86.7 fl (85-98); Mean Platelet Volume 8.6 fL (7.4-10.4); Monocytes # 0.4 10^3/uL (0.2-0.9); Monocytes % 10.5 %; Neutrophils # 1.89 10^3/uL (1.8-7.7); Neutrophils % 53.3 %; Nucleated Red Blood Cells % 0 %; Platelet Count 306 10^3/cmm (157-399); Red Blood Count 4.35 10^6/uL (3.85-5.65); White Blood Count 3.54 10^3/uL (3.29-11.43)
[2024-02-16 13:03] LABS: Alanine Aminotransferase 14 U/L (0-33); Albumin Level 4.6 g/dL (3.5-5.2); Alkaline Phosphatase 69 U/L (35-105); Anion Gap 13.1 (5-19); Aspartate Amino Transferase 16 U/L (0-32); Blood Urea Nitrogen 15 mg/dL (6-20); Calcium 9.9 mg/dL (8.5-10.5); Carbon Dioxide 30 mmol/L (22-29); Chloride 101 mmol/L (98-107); Globulin 2.7 g/dL (1.3-4.6); Glomerular Filtration Rate 74.5 mL/min (90-130); Glucose 100 mg/dL (65-115); Osmolality Calculated 291 mOsm/kg (285-295); Potassium 4.1 mmol/L (3.5-5.1); Sodium 140 mmol/L (136-145); Total Bilirubin 0.4 mg/dL (0.15-1.2); Total Protein 7.3 g/dL (6.6-8.7)
== END 2024-03-10 23:59 | disposition home or self-care (01) ==
LOC: ONCMED 12:08
PROVIDERS: Nurse Practitioner Family; PCP Nurse Practitioner Family; Visit Provider Internal Medicine Medical Oncology
DX: C50.211 Malignant neoplasm of upper-inner quadrant of right female breast (principal); Z17.0 Estrogen receptor positive status [ER+]; Z79.811 Long term (current) use of aromatase inhibitors; E55.9 Vitamin D deficiency, unspecified; Z53.9 Procedure and treatment not carried out, unspecified reason
CPT/HCPCS: 36415; 77080; 80053; 85025

== ENCOUNTER 2024-03-11 06:00 | Outpatient (RCR) | payer OTHER, SELFPAY | END 2024-04-09 23:59 | disposition home or self-care (01) | LOC: SPT 06:00 | PROVIDERS: PCP Nurse Practitioner Family; Visit Provider Nurse Practitioner Family | DX: M25.512 Pain in left shoulder (principal); M25.612 Stiffness of left shoulder, not elsewhere classified | CPT/HCPCS: 97110 ==

== ENCOUNTER 2024-04-03 12:35 | Oncology outpatient (recurring) (ONCR) | payer OTHER, SELFPAY ==
[2024-04-03 12:55] LABS: Basophils % 0.7 %; Eosinophils # 0.1 10^3/uL (0.0-0.8); Eosinophils % 3.2 %; Hematocrit 38.7 % (36-47); Lymphocytes # 1.1 10^3/uL (0.8-4.8); Lymphocytes % 26.3 %; Mean Corpuscular HGB Conc 34.1 g/dL (30-55); Mean Corpuscular Hemoglobin 29.8 pg (27-33); Mean Corpuscular Volume 87.4 fl (85-98); Mean Platelet Volume 8.6 fL (7.4-10.4); Monocytes # 0.4 10^3/uL (0.2-0.9); Monocytes % 10.5 %; Neutrophils # 2.41 10^3/uL (1.8-7.7); Neutrophils % 58.8 %; Nucleated Red Blood Cells % 0 %; Platelet Count 294 10^3/cmm (157-399); Red Blood Count 4.43 10^6/uL (3.85-5.65); Red Cell Distribution Width 12.2 % (12.1-15.1)
[2024-04-03 13:12] LABS: Alanine Aminotransferase 9 U/L (0-33); Albumin Level 4.7 g/dL (3.5-5.2); Alkaline Phosphatase 76 U/L (35-105); Anion Gap 12.8 (5-19); Aspartate Amino Transferase 16 U/L (0-32); Blood Urea Nitrogen 16 mg/dL (6-20); Calcium 9.7 mg/dL (8.5-10.5); Carbon Dioxide 28 mmol/L (22-29); Chloride 104 mmol/L (98-107); Globulin 2.6 g/dL (1.3-4.6); Glomerular Filtration Rate 74.5 mL/min (90-130); Glucose 100 mg/dL (65-115); Osmolality Calculated 291 mOsm/kg (285-295); Potassium 4.8 mmol/L (3.5-5.1); Sodium 140 mmol/L (136-145); Total Bilirubin 0.5 mg/dL (0.15-1.2); Total Protein 7.3 g/dL (6.6-8.7)
== END 2024-04-09 23:59 | disposition home or self-care (01) ==
LOC: ONCMED 12:35
PROVIDERS: PCP Nurse Practitioner Family; Visit Provider Internal Medicine Medical Oncology
DX: C50.211 Malignant neoplasm of upper-inner quadrant of right female breast (principal); Z17.0 Estrogen receptor positive status [ER+]
CPT/HCPCS: 36415; 80053; 85025

== ENCOUNTER 2024-05-23 09:59 | Day surgery (SDC) | payer OTHER, SELFPAY ==
[2024-05-15 11:33] LABS: Charge for UA Resulting for Rev
[2024-05-15 11:42] LABS: Bilirubin Urine Negative (Negative); Blood Urine Negative (Negative); Glucose Urine UA Negative (Normal); Ketones Urine Negative (Negative); Leukocyte Esterase Urine Negative (Negative); Nitrate Urine Negative (Negative); Protein Urine Negative (Negative); Specific Gravity, Urine 1.011 (1.005-1.030); Urine Appearance Clear (CLEAR); Urine Color Yellow (Yellow); Urobilinogen Urine 0.2 mg/dL (Negative); pH Urine 5.5 (5-7)
[2024-05-15 11:53] LABS: Basophils # 0.1 10^3/uL (0.0-0.1); Basophils % 1.2 %; Eosinophils # 0.1 10^3/uL (0.0-0.8); Eosinophils % 3.5 %; Hematocrit 41.4 % (36-47); Lymphocytes # 1.4 10^3/uL (0.8-4.8); Lymphocytes % 35.6 %; Mean Corpuscular HGB Conc 33.8 g/dL (30-55); Mean Corpuscular Hemoglobin 29.8 pg (27-33); Mean Corpuscular Volume 88.1 fl (85-98); Mean Platelet Volume 8.7 fL (7.4-10.4); Monocytes # 0.4 10^3/uL (0.2-0.9); Monocytes % 10.1 %; Neutrophils # 1.98 10^3/uL (1.8-7.7); Neutrophils % 49.1 %; Nucleated Red Blood Cells % 0 %; Platelet Count 285 10^3/cmm (157-399); Red Cell Distribution Width 12.1 % (12.1-15.1); White Blood Count 4.04 10^3/uL (3.29-11.43)
[2024-05-15 12:21] LABS: Alanine Aminotransferase 14 U/L (0-33); Alkaline Phosphatase 92 U/L (35-105); Anion Gap 14.5 (5-19); Aspartate Amino Transferase 15 U/L (0-32); Blood Urea Nitrogen 22 mg/dL (6-20); Calcium 9.7 mg/dL (8.5-10.5); Carbon Dioxide 29 mmol/L (22-29); Chloride 99 mmol/L (98-107); Globulin 2.3 g/dL (1.3-4.6); Glomerular Filtration Rate 74.5 mL/min (90-130); Glucose 103 mg/dL (65-115); Osmolality Calculated 290 mOsm/kg (285-295); Potassium 4.5 mmol/L (3.5-5.1); Sodium 138 mmol/L (136-145); Total Bilirubin 0.3 mg/dL (0.15-1.2); Total Protein 7.3 g/dL (6.6-8.7)
--- NOTE | 2024-05-15 12:26 | P.ANESASSM_ITS ---
Pre-Anesthetic Assessment Height/Weight: Height 1.65 m Operation Date: 05/23/24 08:50 Proposed Procedures p Laparoscopic Oophorectomy(Bilateral) - Tip More MD Familial anesthetic complications: none Was Beta Triston taken within 24 hours: Yes Was Clonidine taken within 24 hours: N/A Social No alcohol and No tobacco Exam alert, oriented x 3, clear to auscultation bilaterally and regular rate & rhythm Airway Submandibular: within normal limits Cervical ROM: within normal limits Mallampati: Class II Dentition: full CV/HEM Anemia, Arrythmia and Hypertension Neuropsych Headache Anesthetic Plan ASA status: 2 Anesthesia: General Medications/Allergies Home Medications Medication Instructions Recorded Confirmed Last Taken Type atorvastatin 20 mg tablet 20 mg PO DAILY 06/08/23 05/15/24 05/15/24 History bupropion HCl 150 mg 24 hr tablet, 150 mg PO QAM 06/08/23 05/15/24 05/15/24 History extended release Cranial prothesis #1 device 09/21/23 05/15/24 Unknown Rx propranolol 10 mg tablet 40 mg PO BID 09/28/23 05/15/24 05/15/24 History Allergies Allergy/AdvReac Type Severity Reaction Status Date / Time metronidazole Allergy ADR-Gastrointestinal Verified 05/15/24 08:43 Upset [facility] Anesthesia Medical History History of migraine Breast cancer Hypertension Depression High cholesterol Surgical History History of breast reconstruction History of removal of cyst Removal of 2 scalp cysts History of lumpectomy of right breast (04/27/23) History of right mastectomy (05/20/23) History of right mast/axillary dissection History of abdominal hysterectomy (2011) Family History Grandmother Cancer Diabetes Lung disease Stroke Mother CAD (coronary artery disease) Heart disease Hyperlipidemia Stroke Father Hyperlipidemia Hypertension Lung disease Prostate cancer Denies family history of Colon cancer Ovarian cancer Clotting disorder Dementia Psychiatric illness Chronic kidney disease (CKD) Breast cancer Suicide Family history of premature coronary artery disease Uterine cancer Thyroid disease Social History Smoking and tobacco/nicotine status: never used tobacco/nicotine Alcohol intake: current Alcohol intake frequency: few times a month Alcohol type: wine Data Anesthesia 05/15/24 11:40 05/15/24 11:40 Short CBC 05/15/24 Range/Units 11:40 WBC 4.04 (3.29-11.43) 10^3/uL Hgb 14.00 (11.27-16.99) g/dL Hct 41.4 (36-47) % MCV 88.1 (85-98) fl Plt Count 285 (157-399) 10^3/cmm Neut % (Auto) 49.1 % Neut # (Auto) 1.98 (1.8-7.7) 10^3/uL BMP 05/15/24 11:40 Sodium 138 Potassium 4.5 Chloride 99 Carbon Dioxide 29 BUN 22 H Creatinine 0.8 Glucose 103 Calcium 9.7 Liver Function 05/15/24 Range/Units 11:40 Total Bilirubin 0.3 (0.15-1.2) mg/dL AST 15 (0-32) U/L ALT 14 (0-33) U/L Alkaline Phosphatase 92 (35-105) U/L Albumin 5.0 (3.5-5.2) g/dL Urine 05/15/24 Range/Units 11:30 Urine Color Yellow (Yellow) Urine Appearance Clear (CLEAR) Urine pH 5.5 (5-7) Ur Specific [place] 1.011 (1.005-1.030) Urine Protein Negative (Negative) Urine Glucose (UA) Negative (Normal) Urine Ketones Negative (Negative) Urine Nitrate Negative (Negative) Urine Bilirubin Negative (Negative) Ur Leukocyte Esterase Negative (Negative) Cardiac Studies: 2 Echocardiogram 10/19/23
[2024-05-23] VITALS (13 sets, daily range): BP systolic 148–198; BP diastolic 82–105; PULSE 50–64; RESP 16–20; TEMP 36.2–36.6; O2SAT 96–100; BMI 20.7
--- NOTE | 2024-05-23 10:21 | P.ANESUD_ITS ---
Pre-Anesthetic Update Pre-Anesthetic Assessment: Date of Surgery/Procedure: 05/23/24 Preop Merry gnosis: breasy cancer Proposed Procedure: Operation Date: 05/23/24 11:35 Proposed Procedures p Laparoscopic Oophorectomy(Bilateral) - Tip More MD Any changes to Pre-Anesthetic Assessment?: No Last Intake: > 8hrs Vitals: Temperature 97.9 F 05/23/24 10:18 Temperature Source Temporal Artery S can 05/23/24 10:18 Pulse Rate 58 L 05/23/24 10:18 Respiratory Rate 18 05/23/24 10:18 Blood Pressure 173/105 05/23/24 10:18 Blood Pressure La n 127 05/23/24 10:18 Pulse Oximetry 100 05/23/24 10:18 Oxygen Delivery Me thod Room Air 05/23/24 10:18 Exam: Pre-Anes Outpt Exam: alert, oriented x 3, clear to auscultation bilaterally and regular rate & rhythm Cardiac Studies: Echocardiogram 10/19/23
[2024-05-23] MEDS: sodium chloride 0.9% 500 ML IV (10:54)
[2024-05-23] MEDS: scopolamine 1.5 Patch 1 PATCH TRANSDERMA (10:57)
[2024-05-23] MEDS: sodium chloride 0.9% 1,000 ML 30 ML IV (11:01)
[2024-05-23] MEDS: ceFAZolin 2,000 mg SDV 2000 MG IVP (11:02)
--- NOTE | 2024-05-23 11:05 | W.PM.OPSUD ---
Surgery/Procedure H&P Update DATE OF PROCEDURE: May 23, 2024 DATE H&P PERFORMED: 05/15/24 H&P UPDATE INFORMATION: I have reviewed H&P completed within last 30 days, I have examined patient prior to procedure and No changes to prior documentation PREOP DIAGNOSIS: breasy cancer PLANNED PROCEDURE: Operation Date: 05/23/24 11:35 Proposed Procedures p Laparoscopic Oophorectomy(Bilateral) - Tip More MD
[2024-05-23] MEDS: lidocaine-epi 2% PF 1:200,000 20 mL SDV 10 ML INJECTION (12:04)
--- NOTE | 2024-05-23 12:22 | PM.OP ---
Operative Report Date of procedure: May 23, 2024 Pre-op diagnosis: Breast cancer Post-op diagnosis: same Procedure done: Laparoscopic bilateral salpingo-oophorectomy Specimens removed/disposition: Left the right fallopian tube and ovaries Surgeon: Tip More MD Estimated blood loss (mL): 5 IV fluids (mL): 600 Urine output (mL): 100 Brief History: Mrs. Cerda 53-year-old female with breast cancer, positive for hormone receptors. Oncology recommendation for bilateral oophorectomy Procedure: After informed consent, the patient was taken to the operating room where general anesthesia was administered. She was placed in the dorsal lithotomy position and prepped and draped in sterile fashion. Pre-Procedure Time-Out verifying the correct patient identity, correct procedure verified with consent, correct site and side, correct patient position, availability of correct implants and any special equipment or requirements was performed and acknowledge by the OR team. The patient was examined under anesthesia and found to have a normal uterus with normal adnexa. A weighted speculum was placed in the vagina, and the anterior lip of cervix was grasped with the single toothed tenaculum. A uterine manipulator was advanced into the endocervical canal and uterus. The tenaculum was removed after uterine manipulator was secured. The speculum was removed from the vagina. An intraumbilical incision was made with a scalpel. While tenting up on the abdomen, a Verres needle was admitted into the intra-abdominal cavity. A saline drop test was performed and noted to be within normal limits. Pneumoperitoneum was attained with 4 liters of carbon dioxide. The Verres needle was removed. A 5 mm Opitc view trocar and sleeve were admitted into the abdomen and laparoscopic confirmation of location was achieved. A second incision was made 3 cm above the symphysis pubis, and a 10 mm trocar sleeves were admitted into the abdomen under direct laparoscopic visualization without complication. A survey revealed normal abdominal anatomy. A 5 mm blunt probe was advanced through the second trocar sleeve, and light manipulation of ovaries and uterus to assess the posterior aspects was performed. The pelvic survey shows normal post hysterectomy pelvic area with no adhesions. The patient was placed into Trendelenburg position. The fallopian tubes and ovaries were inspected bilaterally and the fimbriated ends of the fallopian tubes were visualized bilaterally. Attention was then directed to the right side. The fallopian tube and ovary were grasped and the underlying mesosalpinx and infundubulopelvic ligament was cauterized and cut using the Ligasure device. Serial cauterization and cutting was used to separate the fallopian tube and ovary until it could be amputated. Attention was then turned to the contralateral fallopian tube and ovary, which was removed in similar fashion. Then an Endobag was placed in the pelvis and both specimens were removed through the trocar and sent to pathology. The instruments were removed. The suprapubic trocar port was removed under direct visualization insuring good hemostasis. The carbon dioxide was allowed to escape from the abdomen. The intraumbilical trocar sleeve was withdrawn under visualization with laparoscope in the sleeve to insure hemostasis. Suprapubic incision was closed with 3-0 Vicryl. The skin incisions were closed with 3-O Monocryl subcuticular stich and Dermabond. The instruments were removed from the vagina, and excellent hemostasis was noted. The patient tolerated the procedure well, and sponge, lap and needle count were correct times three. The patient was taken to the recovery room in good condition.
[2024-05-23] MEDS: fentaNYL 50 mcg/mL INJ 2mL IVP (12:30)
--- NOTE | 2024-05-23 13:22 | ANE.PACU2 ---
Inpatient post-anesthesia follow up: Airway intact: Yes Vital signs: Temperature 97.4 F Pulse Rate 57 Respiratory Rate 18 Blood Pressure 183/84 Pulse Oximetry 100 Oxygen Delivery Me thod Room Air Oxygen Flow Rate Fraction of Inspir ed Oxygen Hydration adequate: Yes Nausea and vomiting: No Pain level: 1 Mental status: Baseline
[2024-05-23] MEDS: hyDRALAzine 20 mg/mL INJ 1 mL 10 MG IVP (13:39)
--- NOTE | 2024-05-23 14:37 | PC.NURSE ---
pt was experiencing elevated blood pressures today pre and post operatively. Stated she had taken medications in the past to control her b/p but her dr had taken her off of them for approximately one year. blood pressures taken with a manual cuff by two nurses was significantly lower than those taken with the machine. Patient was discharged and advised to follow up with her Dr regarding her elevated blood pressure and possibly restarting her bp meds
== END 2024-05-23 14:25 | disposition home or self-care (01) ==
PROVIDERS: PCP Nurse Practitioner Family; Visit Provider Obstetrics & Gynecology
PROC: (CPT 58661; principal; 2024-05-23 11:25)
DX: C50.919 Malignant neoplasm of unspecified site of unspecified female breast (principal); Z17.0 Estrogen receptor positive status [ER+]; I10 Essential (primary) hypertension; F32.A Depression, unspecified
CPT/HCPCS: 58661; 36415; 51702; 80053; 81003; 81015; 85025; 86850; 86900; 88305; J0360; J0690; J2250; J2704; J3010; J3490; J7030; J7040

== ENCOUNTER 2024-06-19 10:43 | Oncology outpatient (recurring) (ONCR) | payer OTHER, SELFPAY ==
[2024-06-19 11:45] LABS: Eosinophils # 0.2 10^3/uL (0.0-0.8); Eosinophils % 3.7 %; Hematocrit 39.6 % (36-47); Lymphocytes # 1.2 10^3/uL (0.8-4.8); Lymphocytes % 29.5 %; Mean Corpuscular HGB Conc 34.1 g/dL (30-55); Mean Corpuscular Hemoglobin 30.1 pg (27-33); Mean Corpuscular Volume 88.4 fl (85-98); Mean Platelet Volume 8.9 fL (7.4-10.4); Monocytes # 0.5 10^3/uL (0.2-0.9); Monocytes % 11.2 %; Neutrophils # 2.24 10^3/uL (1.8-7.7); Neutrophils % 54.6 %; Nucleated Red Blood Cells % 0 %; Platelet Count 277 10^3/cmm (157-399); Red Blood Count 4.48 10^6/uL (3.85-5.65); Red Cell Distribution Width 12.3 % (12.1-15.1)
[2024-06-19 12:00] LABS: Alanine Aminotransferase 15 U/L (0-33); Albumin Level 4.6 g/dL (3.5-5.2); Alkaline Phosphatase 83 U/L (35-105); Anion Gap 13.6 (5-19); Aspartate Amino Transferase 17 U/L (0-32); Blood Urea Nitrogen 12 mg/dL (6-20); Calcium 9.2 mg/dL (8.5-10.5); Carbon Dioxide 30 mmol/L (22-29); Chloride 104 mmol/L (98-107); Creatinine Clr Calc Pharmacy 82.8392; Globulin 2.5 g/dL (1.3-4.6); Glomerular Filtration Rate 86.9 mL/min (90-130); Glucose 101 mg/dL (65-115); Osmolality Calculated 296 mOsm/kg (285-295); Potassium 4.6 mmol/L (3.5-5.1); Sodium 143 mmol/L (136-145); Total Bilirubin 0.4 mg/dL (0.15-1.2); Total Protein 7.1 g/dL (6.6-8.7)
== END 2024-07-10 23:59 | disposition home or self-care (01) ==
PROVIDERS: PCP Nurse Practitioner Family; Visit Provider Internal Medicine Medical Oncology
DX: C50.211 Malignant neoplasm of upper-inner quadrant of right female breast (principal); Z17.0 Estrogen receptor positive status [ER+]
CPT/HCPCS: 36415; 80053; 85025

== ENCOUNTER 2024-11-27 11:37 | Oncology outpatient (recurring) (ONCR) | payer OTHER, SELFPAY ==
[2024-11-27 11:53] LABS: Basophils % 0.7 %; Eosinophils # 0.1 10^3/uL (0.0-0.8); Eosinophils % 2.4 %; Hematocrit 39.2 % (36-47); Lymphocytes # 1.6 10^3/uL (0.8-4.8); Lymphocytes % 33.9 %; Mean Corpuscular HGB Conc 33.4 g/dL (30-55); Mean Corpuscular Hemoglobin 29.9 pg (27-33); Mean Corpuscular Volume 89.5 fl (85-98); Mean Platelet Volume 8.5 fL (7.4-10.4); Monocytes # 0.5 10^3/uL (0.2-0.9); Monocytes % 10.9 %; Neutrophils # 2.37 10^3/uL (1.8-7.7); Neutrophils % 51.9 %; Nucleated Red Blood Cells % 0 %; Platelet Count 289 10^3/cmm (157-399); Red Blood Count 4.38 10^6/uL (3.85-5.65); Red Cell Distribution Width 11.9 % (12.1-15.1); White Blood Count 4.57 10^3/uL (3.29-11.43)
[2024-11-27 12:13] LABS: Alanine Aminotransferase 17 U/L (0-33); Albumin Level 4.7 g/dL (3.5-5.2); Alkaline Phosphatase 81 U/L (35-105); Anion Gap 16.2 (5-19); Aspartate Amino Transferase 19 U/L (0-32); Blood Urea Nitrogen 14 mg/dL (6-20); Calcium 9.8 mg/dL (8.5-10.5); Carbon Dioxide 28 mmol/L (22-29); Chloride 101 mmol/L (98-107); Creatinine Clr Calc Pharmacy 72.7121; Globulin 2.6 g/dL (1.3-4.6); Glomerular Filtration Rate 74.5 mL/min (90-130); Glucose 106 mg/dL (65-115); Osmolality Calculated 293 mOsm/kg (285-295); Potassium 4.2 mmol/L (3.5-5.1); Sodium 141 mmol/L (136-145); Total Bilirubin 0.4 mg/dL (0.15-1.2); Total Protein 7.3 g/dL (6.6-8.7)
== END 2024-12-08 23:59 | disposition home or self-care (01) ==
PROVIDERS: Internal Medicine Medical Oncology; PCP Nurse Practitioner Family; Visit Provider Internal Medicine Medical Oncology
DX: C50.211 Malignant neoplasm of upper-inner quadrant of right female breast (principal); Z17.0 Estrogen receptor positive status [ER+]
CPT/HCPCS: 36415; 80053; 85025

== ENCOUNTER 2025-02-26 09:50 | Oncology outpatient (recurring) (ONCR) | payer OTHER, SELFPAY ==
[2025-02-26 10:25] LABS: Basophils # 0.1 10^3/uL (0.0-0.1); Basophils % 1.2 %; Eosinophils # 0.1 10^3/uL (0.0-0.8); Eosinophils % 2.9 %; Hematocrit 40.5 % (36-47); Lymphocytes # 1.3 10^3/uL (0.8-4.8); Lymphocytes % 31.4 %; Mean Corpuscular HGB Conc 33.3 g/dL (30-55); Mean Corpuscular Hemoglobin 29.7 pg (27-33); Mean Corpuscular Volume 89.2 fl (85-98); Mean Platelet Volume 8.8 fL (7.4-10.4); Monocytes # 0.4 10^3/uL (0.2-0.9); Monocytes % 10.3 %; Neutrophils # 2.19 10^3/uL (1.8-7.7); Nucleated Red Blood Cells % 0 %; Platelet Count 271 10^3/cmm (157-399); Red Blood Count 4.54 10^6/uL (3.85-5.65); Red Cell Distribution Width 11.9 % (12.1-15.1); White Blood Count 4.07 10^3/uL (3.29-11.43)
[2025-02-26 10:52] LABS: Alanine Aminotransferase 15 U/L (0-33); Albumin Level 4.4 g/dL (3.5-5.2); Alkaline Phosphatase 69 U/L (35-105); Anion Gap 16.2 (5-19); Aspartate Amino Transferase 18 U/L (0-32); Blood Urea Nitrogen 14 mg/dL (6-20); CA 15-3 20.5 U/mL (0-25); Calcium 9.4 mg/dL (8.5-10.5); Carbon Dioxide 25 mmol/L (22-29); Chloride 105 mmol/L (98-107); Creatinine Clr Calc Pharmacy 82.6359; Globulin 2.5 g/dL (1.3-4.6); Glomerular Filtration Rate 86.6 mL/min (90-130); Glucose 99 mg/dL (65-115); Osmolality Calculated 295 mOsm/kg (285-295); Potassium 4.2 mmol/L (3.5-5.1); Sodium 142 mmol/L (136-145); Total Bilirubin 0.4 mg/dL (0.15-1.2); Total Protein 6.9 g/dL (6.6-8.7)
== END 2025-03-10 23:59 | disposition home or self-care (01) ==
PROVIDERS: PCP Nurse Practitioner Family; Visit Provider Internal Medicine Medical Oncology
DX: C50.211 Malignant neoplasm of upper-inner quadrant of right female breast (principal); Z17.0 Estrogen receptor positive status [ER+]
CPT/HCPCS: 36415; 80053; 85025; 86300

== ENCOUNTER 2025-05-28 12:04 | Oncology outpatient (recurring) (ONCR) | payer OTHER, SELFPAY ==
[2025-05-28 12:24] LABS: Hematocrit 38.8 % (36-47); Hemoglobin 13.10 g/dL (11.27-16.99); Mean Corpuscular HGB Conc 33.8 g/dL (30-55); Mean Corpuscular Hemoglobin 30.3 pg (27-33); Mean Corpuscular Volume 89.8 fl (85-98); Nucleated Red Blood Cells % 0 %; Platelet Count 275 10^3/cmm (157-399); Red Blood Count 4.32 10^6/uL (3.85-5.65); White Blood Count 4.63 10^3/uL (3.29-11.43)
[2025-05-28 12:58] LABS: Alanine Aminotransferase 18 U/L (0-33); Albumin Level 4.7 g/dL (3.5-5.2); Alkaline Phosphatase 75 U/L (35-105); Anion Gap 11.3 (5-19); Aspartate Amino Transferase 19 U/L (0-32); Blood Urea Nitrogen 15 mg/dL (6-20); CA 15-3 20.4 U/mL (0-25); Calcium 9.7 mg/dL (8.5-10.5); Carbon Dioxide 29 mmol/L (22-29); Chloride 103 mmol/L (98-107); Creatinine Clr Calc Pharmacy 72.3064; Globulin 2.3 g/dL (1.3-4.6); Glucose 106 mg/dL (65-115); Osmolality Calculated 289 mOsm/kg (285-295); Potassium 4.3 mmol/L (3.5-5.1); Sodium 139 mmol/L (136-145); Total Protein 7.0 g/dL (6.6-8.7)
== END 2025-06-10 23:59 | disposition home or self-care (01) ==
PROVIDERS: PCP Nurse Practitioner Family; Visit Provider Internal Medicine Medical Oncology
DX: C50.211 Malignant neoplasm of upper-inner quadrant of right female breast (principal); Z17.0 Estrogen receptor positive status [ER+]; Z79.811 Long term (current) use of aromatase inhibitors
CPT/HCPCS: 36415; 80053; 82306; 85025; 86300

== ENCOUNTER 2025-09-03 12:36 | Oncology outpatient (recurring) (ONCR) | payer OTHER, SELFPAY ==
[2025-09-03 12:57] LABS: Hematocrit 40.1 % (36-47); Hemoglobin 13.70 g/dL (11.27-16.99); Mean Corpuscular HGB Conc 34.2 g/dL (30-55); Mean Corpuscular Hemoglobin 30.8 pg (27-33); Mean Corpuscular Volume 90.1 fl (85-98); Nucleated Red Blood Cells % 0 %; Platelet Count 305 10^3/cmm (157-399); Red Blood Count 4.45 10^6/uL (3.85-5.65); White Blood Count 3.97 10^3/uL (3.29-11.43)
[2025-09-03 13:18] LABS: Alanine Aminotransferase 16 U/L (0-33); Albumin Level 4.5 g/dL (3.5-5.2); Alkaline Phosphatase 73 U/L (35-105); Anion Gap 13.5 (5-19); Aspartate Amino Transferase 18 U/L (0-32); Blood Urea Nitrogen 14 mg/dL (6-20); Calcium 9.2 mg/dL (8.5-10.5); Carbon Dioxide 26 mmol/L (22-29); Chloride 103 mmol/L (98-107); Globulin 2.5 g/dL (1.3-4.6); Glucose 108 mg/dL (65-115); Osmolality Calculated 287 mOsm/kg (285-295); Potassium 4.5 mmol/L (3.5-5.1); Sodium 138 mmol/L (136-145); Total Protein 7.0 g/dL (6.6-8.7)
== END 2025-09-09 23:59 | disposition home or self-care (01) ==
PROVIDERS: Nurse Practitioner Family; PCP Nurse Practitioner Family; Visit Provider Internal Medicine Medical Oncology
DX: C50.211 Malignant neoplasm of upper-inner quadrant of right female breast (principal); Z17.0 Estrogen receptor positive status [ER+]; Z79.811 Long term (current) use of aromatase inhibitors; R03.0 Elevated blood-pressure reading, without diagnosis of hypertension
CPT/HCPCS: 36415; 80053; 85025